=== PATIENT | male | born 1980 | race Caucasian/White ===

== ENCOUNTER 2017-03-12 14:20 | Emergency (ER) | payer BC, OTHER ==
[~2017-03-12] VITALS: Ht 172.7 cm; Wt 99.8 kg
[~2017-03-12 14:20] MED LIST: CEFU500T PO; FLUO60TA PO; HYDR-757 PO; LEVE500T99 PO; OXCA600T PO; PRD20T PO; TRAZ100T92 PO
--- OUTSIDE RECORDS SUMMARY | 2017-03-12 14:26 | XMS REPORT ---
Author Author BOBBI GUZMAN [facility] eClinicalWorks Address Unknown Phone Unavailable Care Team Providers Care Front Maker Lockstitch Name Role Phone BOBBI GUZMAN CP Unavailable Allergies, Adverse Reactions, Alerts Substance Reaction Event Type Asa Seizure Drug Allergy Problems Problem Type Condition Code Onset Dates Condition Status Assessment Depression F32.9 Active Assessment Seizure R56.9 Active Assessment Insomnia, unspecified type G47.00 Active Problem Seizure R56.9 Active Problem Depression F32.9 Active Problem Insomnia, unspecified type G47.00 Active Problem Unspecified 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 of intractable epilepsy G40.909 Active Problem Viral warts, unspecified 078.10 Active Problem History of attempted suicide Z91.5 Active Problem Depressive disorder, not elsewhere classified F32.9 Active Medications Medication Code System Code Instructions Start Date End Date Status Dosage Oxcarbazepine [facility] [address]-75 600 MG Orally 2 times a day 1 tablet Ambien [facility] [address]-61 5 MG Orally Once a day October 23, 2015 1 tablet at bedtime Levetiracetam [facility] [address]-08 500 MG Orally 2 times a day 3 tab Fluoxetine NDC 0 20 mg Once a day Mar 18, 2013 take 1.5 Tablet by Oral route 1 time per day Procedures Procedure Coding System Code Date Office Visit, Est Pt., Level 3 CPT-4 28328 Dec 02, 2015 Vital Signs Date/Time: Dec 02, 2015 Cardiac Monitoring Heart Rate 79 bpm Weight 183.4 lbs Height 67.5 in BMI 28.30 Index Blood Pressure Diastolic 60 mmHg Blood Pressure Systolic 100 mmHg Results No Known Results Summary Purpose eClinicalWorks Submission
--- OUTSIDE RECORDS SUMMARY | 2017-03-12 14:26 | XMS REPORT | Clinical Summary ---
Author Author [facility] Organization [facility] Address Unknown Phone Unavailable Care Team Providers Care Junior Legal Secretary Name Role Phone PCP Unavailable Source Comments Some departments are not documenting in the electronic medical record. If you do not see the information that you expected, contact Release of Information in the Health Information Management department at [phone] for further assistance in locating additional records.[facility] Allergies Active Allergy Reactions Severity Noted Date Comments Aspirin SEIZURES 07/01/2013 Current Medications Prescription Sig. Disp. Refills Start End Date Status Date cimetidine(+) (TAGAMET Take 200 mg by mouth Active HB) 200 mg tablet daily as needed. ibuprofen (MOTRIN) 200 mg Take 600 mg by mouth Active tablet daily as needed. nicotine (NICODERM CQ Apply 1 Patch to top of 28 Patch 07/06/19 Active STEP 1) 21 mg/day patch skin as directed daily. 14 clorazepate (TRANXENE) Take 1 Tab by mouth twice 13 Tab 0 07/06/19 Active 3.75 mg tablet daily. 14 levETIRAcetam (KEPPRA) Take 1 Tab by mouth as 180 Tab 5 07/06/19 Active 500 mg tablet directed. 1 po bid x1 14 week then2 po bid x1 week then3 po bid. Active Problems Problem Noted Date Tobacco use Obesity Mood swings (HCC) Nerve damage Seizures (HCC) Heartburn Immunizations Name Dates Previously Given Next Due Pneumococcal Vaccine 07/05/2013 ([place] Adult) Family History Medical History Relation Name Comments Hernia Brother Cancer-Prostate Father Dementia Father Heart Attack Father Stroke Father Heart Disease Maternal Grandfather Cancer-Lung Maternal Grandmother Hypertension Maternal Grandmother Hypertension Mother Cancer Paternal Grandmother Alzheimer's Relation Name Status Comments Brother Father Maternal Grandfather Maternal Grandmother Mother Paternal Grandmother Social History Tobacco Use Types Packs/Day Years Used Date Current Every Day Smoker Cigarettes 0.5 Alcohol Use Drinks/Week oz/Week Comments No 1 beer socially. Sex Assigned at Date Recorded Not on file Last Filed Vital Signs Vital Sign Reading Time Taken Blood Pressure 132/75 07/05/2013 12:00 PM CDT Pulse 84 07/05/2013 12:00 PM CDT Temperature 36.9 C (98.4 F) 07/05/2013 12:00 PM CDT Respiratory Rate - - Oxygen Saturation 99% 07/05/2013 12:00 PM CDT Inhaled Oxygen - - Concentration Weight 95.9 kg (211 lb 8 oz) 07/02/2013 2:19 PM CDT Height 175.3 cm (5' 9") 07/02/2013 2:19 PM CDT Body Mass Index 31.23 07/02/2013 2:19 PM CDT Plan of Treatment Health Maintenance Due Date Last Done Comments PHYSICAL (COMPREHENSIVE) 1985 EXAM PERTUSSIS VACCINE 1989 TETANUS VACCINE 1995 INFLUENZA VACCINE 10/25/2016 Results Not on filefrom Last 3 Months
--- OUTSIDE RECORDS SUMMARY | 2017-03-12 14:26 | XMS REPORT ---
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 Medications Medication Code System Code Instructions Start Date End Date Status Dosage Phenytoin Sodium Extended [facility] [address]-00 100 MG am and pm Active take 3 capsule Celexa [facility] [address]-01 20 MG Orally Once a day Active 1 tablet Keppra [facility] [address]-00 500 MG Orally every 12 hrs Active 3 tablets Divalproex Sodium [facility] [address]-85 500 MG Orally twice a day Active 3 tabs Acyclovir [facility] [address]-32 800 MG Orally Five times a day Mar 13, 2014 Active 1 tablet Oxcarbazepine [facility] [address]-74 300 MG Orally twice day Active not defined Clorazepate Dipotassium [facility] [address]-04 7.5 MG Orally Twice a day Active 1 tablet at bedtime as needed Procedures Procedure Coding System Code Date Office Visit, Est Pt., Level 3 CPT-4 77981 Mar 13, 2014 Vital Signs Date/Time: Mar 13, 2014 BMI 30.10 Index Weight 198 lbs Height 68.0 in Oximetry 98 % Cardiac Monitoring Heart Rate 64 /min Blood Pressure Diastolic 70 mm Hg Blood Pressure Systolic 118 mm Hg Respiratory Rate 20 /min Results No Known Results Summary Purpose eClinicalWorks Submission
--- OUTSIDE RECORDS SUMMARY | 2017-03-12 14:26 | XMS REPORT ---
Author [facility] Address [address] [place] [address] Care Team Providers Care Conveyor Loader Name Role Phone BOBBI GUMZAN Unavailable PROBLEMS Type Condition ICD9-CM Code CYZ81-LP Code Onset Dates Condition Status SNOMED Code Problem Unspecified 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 of intractable epilepsy G40.909 Active 08688286 Problem Depressive disorder, not elsewhere classified F32.9 Active 21699051 Problem Drug-induced erectile dysfunction N52.2 Active 598336386 Problem Insomnia, unspecified type G47.00 Active 193581331 Problem History of attempted suicide Z91.5 Active 364000020 Problem Viral warts, unspecified 078.10 Active 71557366 Problem Seizure R56.9 Active 11710852 Problem Depression F32.9 Active 42705162 ALLERGIES Substance Reaction Event Type Date Status Trazodone HCl Seizures Drug Allergy May, Active Asa Seizure Drug Allergy May, Active SOCIAL HISTORY Never Assessed PLAN OF CARE Activity Details Follow Up 4 Weeks Reason:f/u insomnia VITAL SIGNS Height 67.5 in 2016-06-03 Weight 200.0 lbs 2016-06-03 Temperature 97.8 degrees Fahrenheit 2016-06-03 Heart Rate 74 bpm 2016-06-03 Respiratory Rate 18 2016-06-03 BMI 30.86 kg/m2 2016-06-03 Blood pressure systolic 102 mmHg 2016-06-03 Blood pressure diastolic 68 mmHg 2016-06-03 MEDICATIONS Medication Instructions Dosage Frequency Start Date End Date Duration Status Levetiracetam 500 MG Orally 2 times a day 3 tab 12h Active Ambien 5 mg Orally Once a day 1 tablet at bedtime 24h May, 28 days Active Fluoxetine HCl 20 mg Orally Once a day 1 tablet 24h May, 30 day (s) Active Oxcarbazepine 600 MG Orally 2 times a day 1 tablet 12h Active RESULTS No Results PROCEDURES No Known procedures IMMUNIZATIONS No Known Immunizations MEDICAL (GENERAL) HISTORY Type Description Date Medical History seizures Medical History suicidal attempt x 7 Surgical History Rt eye surgery Hospitalization History seizures Hospitalization History Suicidal attempt 04/17/2015 Hospitalization History Generalized Tonic Clonic Seizure-[facility] 03/02/2015
--- OUTSIDE RECORDS SUMMARY | 2017-03-12 14:27 | XMS REPORT ---
Author [facility] Address [address] [place] [address] Care Team Providers Care Translator Name Role Phone BOBBI GUZMAN Unavailable PROBLEMS Type Condition ICD9-CM Code EOD48-WX Code Onset Dates Condition Status SNOMED Code Problem Viral warts, unspecified 078.10 Active 45301778 Problem Insomnia, unspecified type G47.00 Active 707657942 Problem Seizure R56.9 Active 73628947 Problem Depressive disorder, not elsewhere classified F32.9 Active 94331213 Problem Unspecified 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 of intractable epilepsy G40.909 Active 84460335 Problem Depression F32.9 Active 25106018 Problem History of attempted suicide Z91.5 Active 424843978 ALLERGIES Unknown Allergies SOCIAL HISTORY No smoking Hx information available PLAN OF CARE VITAL SIGNS MEDICATIONS Unknown Medications RESULTS No Results PROCEDURES No Known procedures IMMUNIZATIONS No Known Immunizations
--- OUTSIDE RECORDS SUMMARY | 2017-03-12 14:27 | XMS REPORT ---
Author Author BOBBI GUZMAN [facility] eClinicalWorks Address Unknown Phone Unavailable Care Team Providers Care Panel Machine Setter Name Role Phone BOBBI GUZMAN CP Unavailable Allergies No Known Allergies Problems Problem Type Condition Code Onset Dates Condition Status Problem Seizure R56.9 Active Problem Depression F32.9 Active Problem Insomnia, unspecified type G47.00 Active Problem Unspecified 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 of intractable epilepsy G40.909 Active Problem Viral warts, unspecified 078.10 Active Problem History of attempted suicide Z91.5 Active Problem Depressive disorder, not elsewhere classified F32.9 Active Medications Medication Code System Code Instructions Start Date End Date Status [facility]osage [facility] [address]-49 5 mg Orally Once a day October 23, 2015 1 tablet at bedtime Results No Known Results Summary Purpose eClinicalWorks Submission
--- OUTSIDE RECORDS SUMMARY | 2017-03-12 14:27 | XMS REPORT ---
Author Author BOBBI GUZMAN [facility] eClinicalWorks Address Unknown Phone Unavailable Care Team Providers Care Marketing Recruiter Name Role Phone BOBBI GUZMAN CP Unavailable Allergies No Known Allergies Problems Problem Type Condition Code Onset Dates Condition Status Problem Depression F32.9 Active Problem History of attempted suicide Z91.5 Active Problem Seizure R56.9 Active Problem Unspecified 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 of intractable epilepsy 345.90 Active Problem Depressive disorder, not elsewhere classified 311 Active Problem Viral warts, unspecified 078.10 Active Medications Medication Code System Code Instructions Start Date End Date Status Dosage Oxcarbazepine [facility] [address]-46 600 MG Orally 2 times a day [address] [facility] [address]-58 500 MG Orally 2 times a day 3 tab Results No Known Results Summary Purpose eClinicalWorks Submission
--- OUTSIDE RECORDS SUMMARY | 2017-03-12 14:27 | XMS REPORT ---
Author Author KYRA GOLD Organization [facility] Address [address] [place] [address] Care Team Providers Care Floor Assembler Name Role Phone KYRA GOLD Unavailable PROBLEMS Type Condition ICD9-CM Code GXA87-VL Code Onset Dates Condition Status SNOMED Code Problem Viral warts, unspecified 078.10 Active 24715290 Problem Insomnia, unspecified type G47.00 Active 738317127 Problem Seizure R56.9 Active 06131897 Problem Depressive disorder, not elsewhere classified F32.9 Active 51352274 Problem Unspecified 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 of intractable epilepsy G40.909 Active 57969849 Problem Depression F32.9 Active 40789150 Problem History of attempted suicide Z91.5 Active 841436286 ALLERGIES Unknown Allergies SOCIAL HISTORY No smoking Hx information available PLAN OF CARE VITAL SIGNS MEDICATIONS Medication Instructions Dosage Frequency Start Date End Date Duration Status Fluoxetine 20 mg take 1.5 Tablet by Oral route 1 time per day 24h Feb Active Oxcarbazepine 600 MG Orally 2 times a day 1 tablet 12h Active Levetiracetam 500 MG Orally 2 times a day 3 tab 12h Active RESULTS No Results PROCEDURES No Known procedures IMMUNIZATIONS No Known Immunizations
--- OUTSIDE RECORDS SUMMARY | 2017-03-12 14:27 | XMS REPORT ---
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 [address]-46 300-30 MG Orally Three times a day Mar 17, 2014 Mar 27, 2014 Active 1 tablet as needed Results No Known Results Summary Purpose eClinicalWorks Submission
--- OUTSIDE RECORDS SUMMARY | 2017-03-12 14:27 | XMS REPORT ---
Author Author BOBBI GUZMAN [facility] eClinicalWorks Address Unknown Phone Unavailable Care Team Providers Care High School French Teacher Name Role Phone BOBBI GUZMAN CP Unavailable [...] Start Date End Date Status Dosage Oxcarbazepine [facility] [address]-12 600 MG Orally 2 times a day 1 tablet Results No Known Results Summary Purpose eClinicalWorks Submission
--- OUTSIDE RECORDS SUMMARY | 2017-03-12 14:27 | XMS REPORT | CCD ---
Author Author SARAH RICCI Organization Unknown Address [address] [facility] [address] [place], [place] [address] Care Team Providers Care Neonatal Intensive Care Unit Nurse Name Role Phone ROSA BURNETTE MD Attphys ROSA BURNETTE MD Prisurg Vital Signs Unknown or Not Available. Allergies Allergy Code Allergy Type Reaction Status ASPIRIN 1191 Drug allergy Active Procedures Procedure Code Procedure Type Date ^CBC W/AUTO DIFF 8889513 SNOMED CT 05/14/2015 ^UA AUTO DIPSTICK ONLY 099603731 SNOMED CT 05/14/[address] 05/14/[address] 05/14/[address] 05/14/2015 RAPID DRUG SCREEN 720789542 SNOMED CT 05/14/2015 UA ROUTINE C&S IF IND 327262551 SNOMED CT 05/14/2015 COMPREHENSIVE METABOLIC PANEL 384811776 SNOMED CT 2015 CBC W/ AUTO DIFF (RFLX MAN DIFF IF IND) 3955977 SNOMED CT 05/14/2015 History of Immunizations Unknown or Not Available. Problems Problem Code Start Date Resolved Date Status Seizures 92330374 Active Results COMPREHENSIVE METABOLIC PANEL - Collect Date/Time: 05/14/2015 01:00 Test Name Code Test Result Test Units Test Ref Range GLUCOSE 2345-7 111 MG/DL L=70 H=100 SODIUM 2951-2 145 MEQ/L L=135 H=148 POTASSIUM 2823-3 3.4 MEQ/L L=3.5 H=5.3 CHLORIDE 2075-0 106 MEQ/L L=96 H=110 CO2 2028-9 26 MEQ/L L=22 H=29 BUN 3094-0 13 MG/DL L=8 H=22 CREATININE 2160-0 1.1 MG/DL L=0.6 H=1.6 SGOT/AST 1920-8 26 IU/L L=10 H=40 SGPT/ALT 1742-6 21 IU/L L=8 H=54 ALK PHOS 6768-6 66 IU/L L=35 H=115 TOTAL PROTEIN 2885-2 6.2 G/DL L=5.5 H=8.5 ALBUMIN 1751-7 4.0 G/DL L=3.1 H=5.4 TOTAL BILI 1975-2 0.2 MG/DL L=0.0 H=1.5 CALCIUM 32162-1 8.9 MG/DL L=8.2 H=10.6 AGE 35 yrs GFR NonAA 75 GFR AA 91 eGFR >60 N/A eGFR AA* >60 N/A ACETAMINOPHEN - Collect Date/Time: 05/14/2015 01:00 Test Name Code Test Result Test Units Test Ref Range ACETAMINOPHEN 3298-7 <0.60 UG/ML ALCOHOL - Collect Date/Time: 05/14/2015 01:00 Test Name Code Test Result Test Units Test Ref Range ETHANOL 5640-8 <10 MG/DL RAPID DRUG SCREEN - Collect Date/Time: 05/14/2015 01:00 Test Name Code Test Result Test Units Test Ref Range Cannabinoids (THC) NON-NEGATIVE N/A NEG: < 50 ng/ml Phencyclidine (PCP) NEGATIVE N/A NEG: < 25 ng/ ml Cocaine NEGATIVE N/A NEG: < 300 ng/ml Methamphetamine NEGATIVE N/A NEG: < 1000 ng/ml Opiates NEGATIVE N/A NEG: < 300 ng/ml Amphetamine NEGATIVE N/A NEG: < 1000 ng/ml Benzodiazepines NON-NEGATIVE N/A NEG: < 300 ng/ ml Tricyclic Antidepres NEGATIVE N/A NEG: < 300 ng/ ml Methadone NEGATIVE N/A NEG: < 300 ng/ml Barbiturates NEGATIVE N/A NEG: < 200 ng/ml Oxycodone NEGATIVE N/A NEG: < 100 ng/ml Propoxyphene (PPX) NEGATIVE N/A NEG: < 300 ng/ ml SALICYLATE - Collect Date/Time: 05/14/2015 01:00 Test Name Code Test Result Test Units Test Ref Range SALICYLATE 4023-8 <5.0 MG/DL L=0.0 H=45.0 CBC W/ AUTO DIFF (RFLX MAN DIFF IF IND) - Collect Date/Time: 05/14/2015 01:00 Test Name Code Test Result Test Units Test Ref Range WBC 43329-5 10.4 TH/CMM L=4.5 H=10.8 RBC 789-8 4.31 ML/CMM L=4.70 H=6.10 HGB 718-7 14.1 G/DL L=14.0 H=18.0 HCT 4544-3 41.5 % L=42.0 H=52.0 MCV 96 FL L=81 H=99 MCH 32.7 PG L=27.0 H=33.0 MCHC 34.0 G/DL L=31.0 H=36.0 RDW SD 43 FL L=36 H=50 RDW CV 12.3 % L=0.0 H=14.8 MPV 10.0 FL L=9.3 H=12.5 PLT 777-3 336 TH/CMM L=130 H=440 NRBC# 0.00 TH/CMM L=0.00 H=0.00 NRBC% 0.0 /100WBC L=0.0 H=2.0 %NEUT 61.5 % %LYMP 29.5 % %MONO 7.3 % %EOS 1.3 % %BASO 0.4 % #NEUT 6.39 TH/CMM L=2.10 H=8.20 #LYMP 3.07 TH/CMM L=0.90 H=5.20 #MONO 0.76 TH/CMM L=0.16 H=1.00 #EOS 0.13 TH/CMM L=0.00 H=0.80 #BASO 0.04 TH/CMM L=0.00 H=0.20 MANUAL DIFF NOT IND N/A UA ROUTINE C&S IF IND - Collect Date/Time: 05/14/2015 01:00 Test Name Code Test Result Test Units Test Ref Range COLOR YELLOW N/A NL: YELLOW APPEARANCE CLEAR N/A NL: CLEAR SPEC GRAV 1.010 N/A NL: 1.002 - 1.022 pH 7.0 N/A NL: 5 - 9 PROTEIN NEGATIVE N/A NL: NEGATIVE mg/dl GLUCOSE NEGATIVE N/A NL: NEGATIVE mg/dl KETONE TRACE N/A NL: NEGATIVE mg/dl BILIRUBIN NEGATIVE N/A NL: NEGATIVE BLOOD NEGATIVE N/A NL: NEGATIVE NITRITE NEGATIVE N/A NL: NEGATIVE LEUK SCREEN NEGATIVE N/A NL: NEGATIVE MICRO INDICATED? NOT INDICATED N/A Active Medications Medication Code Dose Units Frequency Route Modification Start Date/Time Clorazepate Dipotassium 7.5MG Oral Tablet 201225 7.5 MILLIGRAMS TWO TIMES A DAY ORAL 04/21/2015 15:42 Prescription Detail 7.5 MILLIGRAMS ORAL TWO TIMES A DAY levETIRAcetam 500MG Oral Tablet 023273 9683 MILLIGRAMS EVERY 12 HOURS ORAL 04/21/2015 15:41 Prescription Detail 1500 MILLIGRAMS ORAL EVERY 12 HOURS OXcarbazepine 600MG Oral Tablet 176274 600 MILLIGRAMS TWO TIMES A DAY ORAL 04/21/2015 15:40 Prescription Detail 600 MILLIGRAMS ORAL TWO TIMES A DAY Medications Administered During Visit Unknown or Not Available. Encounters Encounter Diagnosis Diagnosis Code Start Date Intentional self poisoning 831919008 05/14/2015 Social History Smoking Status Code Start Date End Date Unknown if ever smoked 960287004 Patient Decision Aids Unknown or Not Available. Discharge Instructions You were admitted to [facility] on 05/14/2015 00:39 with a principal diagnosis of Poisoning by mixed antiepileptics, intentional self-harm, initial encounter You had the following tests done: ACETAMINOPHEN ALCOHOL CBC W/ AUTO DIFF (RFLX MAN DIFF IF IND) COMPREHENSIVE METABOLIC PANEL RAPID DRUG SCREEN SALICYLATE UA ROUTINE C&S IF IND You were discharged from [facility] on 05/14/2015 03:00 Should you have any questions prior to discharge, please contact a member of your healthcare team. If you have left the hospital and have any questions, please contact your primary care physician. Chief Complaint and Reason For Visit Chief Complaint Date of Onset OVERDOSE Function Status Unknown or Not Available. Plan of Care Unknown or Not Available. Referral/Transition of Care Unknown or Not Available.
--- OUTSIDE RECORDS SUMMARY | 2017-03-12 14:27 | XMS REPORT | CCD ---
Author Author KENDALL BLACKWELL Unknown Address [address] [facility] [address] [place], [place] [address] Care Team Providers Care Commercial Sales Specialist Name Role Phone HENDRIX, PONCHO DO Attphys HENDRIX, PONCHO DO Prisurg Vital Signs Unknown or Not Available. Allergies Allergy Code Allergy Type Reaction Status ASPIRIN 1191 Drug allergy Active Procedures Procedure Code Procedure Type Date CT HEAD W/O CONTRAST 779806765 SNOMED CT 08/02/2015 COMPREHENSIVE METABOLIC PANEL 858886226 SNOMED CT 2015 CBC W/ AUTO DIFF (RFLX MAN DIFF IF IND) 5535805 SNOMED CT 08/02/2015 ^CBC W/AUTO DIFF 4514579 SNOMED CT 08/02/2015 History of Immunizations Unknown or Not Available. Problems Problem Code Start Date Resolved Date Status Seizures 51023589 Active Results COMPREHENSIVE METABOLIC PANEL - Collect Date/Time: 08/02/2015 10:25 Test Name Code Test Result Test Units Test Ref Range GLUCOSE 2345-7 108 MG/DL L=70 H=100 SODIUM 2951-2 141 MEQ/L L=135 H=148 POTASSIUM 2823-3 4.1 MEQ/L L=3.5 H=5.3 CHLORIDE 2075-0 103 MEQ/L L=96 H=110 CO2 2028-9 28 MEQ/L L=22 H=29 BUN 3094-0 19 MG/DL L=8 H=22 CREATININE 2160-0 0.9 MG/DL L=0.6 H=1.6 SGOT/AST 1920-8 23 IU/L L=10 H=40 SGPT/ALT 1742-6 32 IU/L L=8 H=54 ALK PHOS 6768-6 66 IU/L L=35 H=115 TOTAL PROTEIN 2885-2 7.0 G/DL L=5.5 H=8.5 ALBUMIN 1751-7 4.5 G/DL L=3.1 H=5.4 TOTAL BILI 1975-2 0.3 MG/DL L=0.0 H=1.5 CALCIUM 66800-3 9.6 MG/DL L=8.2 H=10.6 AGE 35 yrs GFR NonAA 95 GFR AA 115 eGFR >60 N/A eGFR AA* >60 N/A CBC W/ AUTO DIFF (RFLX MAN DIFF IF IND) - Collect Date/Time: 08/02/2015 10:25 Test Name Code Test Result Test Units Test Ref Range WBC 68363-2 6.1 TH/CMM L=4.5 H=10.8 RBC 789-8 4.58 ML/CMM L=4.70 H=6.10 HGB 718-7 14.7 G/DL L=14.0 H=18.0 HCT 4544-3 43.6 % L=42.0 H=52.0 MCV 95 FL L=81 H=99 MCH 32.1 PG L=27.0 H=33.0 MCHC 33.7 G/DL L=31.0 H=36.0 RDW SD 41 FL L=36 H=50 RDW CV 11.9 % L=0.0 H=14.8 MPV 9.3 FL L=9.3 H=12.5 PLT 777-3 291 TH/CMM L=130 H=440 NRBC# 0.00 TH/CMM L=0.00 H=0.00 NRBC% 0.0 /100WBC L=0.0 H=2.0 %NEUT 64.5 % %LYMP 27.0 % %MONO 6.2 % %EOS 1.0 % %BASO 0.5 % #NEUT 3.95 TH/CMM L=2.10 H=8.20 #LYMP 1.65 TH/CMM L=0.90 H=5.20 #MONO 0.38 TH/CMM L=0.16 H=1.00 #EOS 0.06 TH/CMM L=0.00 H=0.80 #BASO 0.03 TH/CMM L=0.00 H=0.20 MANUAL DIFF NOT IND N/A Active Medications Medication Code Dose Units Frequency Route Modification Start Date/Time Clorazepate Dipotassium 7.5MG Oral Tablet 326775 7.5 MILLIGRAMS TWO TIMES A DAY ORAL 04/21/2015 15:42 Prescription Detail 7.5 MILLIGRAMS ORAL TWO TIMES A DAY levETIRAcetam 500MG Oral Tablet 906433 1826 MILLIGRAMS EVERY 12 HOURS ORAL 04/21/2015 15:41 Prescription Detail 1500 MILLIGRAMS ORAL EVERY 12 HOURS OXcarbazepine 600MG Oral Tablet 293000 600 MILLIGRAMS TWO TIMES A DAY ORAL 04/21/2015 15:40 Prescription Detail 600 MILLIGRAMS ORAL TWO TIMES A DAY Medications Administered During Visit Unknown or Not Available. Encounters Encounter Diagnosis Diagnosis Code Start Date Epilepsy, not refractory 083056858 08/02/2015 Social History Smoking Status Code Start Date End Date Never smoker 107898784 Patient Decision Aids Unknown or Not Available. Discharge Instructions You were admitted to [facility] on 08/02/2015 10:08 with a principal diagnosis of Epilepsy, unspecified, not intractable, without status epilepticus You had the following tests done: CBC W/ AUTO DIFF (RFLX MAN DIFF IF IND) COMPREHENSIVE METABOLIC PANEL You were discharged from [facility] on 08/02/2015 11:38 Should you have any questions prior to discharge, please contact a member of your healthcare team. If you have left the hospital and have any questions, please contact your primary care physician. Chief Complaint and Reason For Visit Chief Complaint Date of Onset SEIZURE Function Status Unknown or Not Available. Plan of Care Unknown or Not Available. Referral/Transition of Care Unknown or Not Available.
--- OUTSIDE RECORDS SUMMARY | 2017-03-12 14:27 | XMS REPORT ---
Author Author BOBBI GUZMAN [facility] eClinicalWorks Address Unknown Phone Unavailable Care Team Providers Care Cyberathlete Name Role Phone BOBBI GUZMAN CP Unavailable [...] Instructions Start Date End Date Status [facility] [address]-55 5 mg Orally Once a day October 23, 2015 1 tablet at bedtime Results No Known Results Summary Purpose eClinicalWorks Submission
--- OUTSIDE RECORDS SUMMARY | 2017-03-12 14:27 | XMS REPORT ---
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
--- OUTSIDE RECORDS SUMMARY | 2017-03-12 14:27 | XMS REPORT ---
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 Active Problem History of attempted suicide Z91.5 Active Problem Depressive disorder, not elsewhere classified 311 Active Problem Depression F32.9 Active Assessment Depression F32.9 Active Assessment History of attempted suicide Z91.5 Active Problem Viral warts, unspecified 078.10 Active Problem Unspecified 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 of intractable epilepsy 345.90 Active Medications Medication Code System Code Instructions Start Date End Date Status Dosage Oxcarbazepine [facility] [address]-31 600 MG Orally 2 times a day not defined Levetiracetam [facility] [address]-77 1500 Mg Orally every 12 hrs not defined Mirtazapine [facility] [address]-14 15 MG Orally Once a day July 17, 2015 1 tablet before bedtime in the evening Procedures Procedure Coding System Code Date Office Visit, Est Pt., Level 3 CPT-4 13200 July 17, 2015 Vital Signs Date/Time: July 17, 2015 Temperature 99.0 F Weight 178.7 lbs Height 67.5 in BMI 27.57 Index Blood Pressure Diastolic 78 mmHg Blood Pressure Systolic 118 mmHg Cardiac Monitoring Heart Rate 75 bpm Results No Known Results Summary Purpose eClinicalWorks Submission
--- OUTSIDE RECORDS SUMMARY | 2017-03-12 14:27 | XMS REPORT ---
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
--- OUTSIDE RECORDS SUMMARY | 2017-03-12 14:28 | XMS REPORT ---
Author Author BOBBI GUZMAN [facility] eClinicalWorks Address Unknown Phone Unavailable Care Team Providers Care Nutritional Services Cook Name Role Phone BOBBI GUZMAN CP Unavailable [...] Instructions Start Date End Date Status Dosage Levetiracetam [facility] [address]-36 500 MG Orally 2 times a day 3 tab Results No Known Results Summary Purpose eClinicalWorks Submission
--- OUTSIDE RECORDS SUMMARY | 2017-03-12 14:28 | XMS REPORT ---
Author Author BOBBI GUZMAN [facility] Address [address] [place] [address] Care Team Providers Care Route Salesperson Name Role Phone BOBBI GUZMAN Unavailable PROBLEMS Type Condition ICD9-CM Code [id number] Code Onset Dates Condition Status SNOMED Code Problem Viral warts, unspecified 078.10 Active 06850431 Problem Insomnia, unspecified type G47.00 Active 523979948 Problem Seizure R56.9 Active 65239575 Problem Depressive disorder, not elsewhere classified F32.9 Active 27673453 Problem Unspecified 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 of intractable epilepsy G40.909 Active 98935184 Problem Depression F32.9 Active 24463558 Problem History of attempted suicide Z91.5 Active 688249224 ALLERGIES Unknown Allergies SOCIAL HISTORY No smoking Hx information available PLAN OF CARE VITAL SIGNS MEDICATIONS Unknown Medications RESULTS No Results PROCEDURES No Known procedures IMMUNIZATIONS No Known Immunizations
--- OUTSIDE RECORDS SUMMARY | 2017-03-12 14:28 | XMS REPORT ---
Author Author [facility] Address [address] [place] [address] Care Team Providers Care Skin Care Consultant Name Role Phone BOBBI GUZMAN Unavailable PROBLEMS Type Condition ICD9-CM Code [id number] Code Onset Dates Condition Status SNOMED Code Problem Unspecified 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 of intractable epilepsy G40.909 Active 06140768 Problem Depressive disorder, not elsewhere classified F32.9 Active 47181622 Problem Drug-induced erectile dysfunction N52.2 Active 487728655 Problem Insomnia, unspecified type G47.00 Active 255015903 Problem History of attempted suicide Z91.5 Active 307733259 Problem Viral warts, unspecified 078.10 Active 65923370 Problem Seizure R56.9 Active 14312912 Problem Depression F32.9 Active 35214167 ALLERGIES No Information SOCIAL HISTORY Never Assessed PLAN OF CARE VITAL SIGNS MEDICATIONS No Known Medications RESULTS No Results PROCEDURES No Known procedures IMMUNIZATIONS No Known Immunizations MEDICAL (GENERAL) HISTORY Type Description Date Medical History seizures Medical History suicidal attempt x 7 Surgical History Rt eye surgery Hospitalization History seizures Hospitalization History Suicidal attempt 04/17/2015 Hospitalization History Generalized Tonic Clonic Seizure-[facility] 03/02/2015
--- OUTSIDE RECORDS SUMMARY | 2017-03-12 14:28 | XMS REPORT | CCD ---
Author Author SARAH RICCI Organization Unknown Address [address] [address] [place], [place] [id number] Care Team Providers Care Compensation Advisor Name Role Phone [facility] MD Attphys RENE QUINONEZ DO Prisurg Vital Signs Vital Sign Value Unit Date/Time Recent/Initial? Weight Measured 190 lbs 04/17/2015 11:30 Initial VS Height 70 in 04/17/2015 11:30 Initial VS BMI (Body Mass Index) 27.26 kg/m^2 04/17/2015 11:30 Initial VS BSA (Body Surface Area) 2.06 m^2 04/17/2015 11:30 Initial VS Body Temperature 96 degrees 04/17/2015 11:30 Initial VS BP Systolic 141 mmHg 04/17/2015 11:39 Initial VS BP Diastolic 84 mmHg 04/17/2015 11:39 Initial VS Respiratory Rate 15 bpm 04/17/2015 11:40 Initial VS Heart Rate 69 bpm 04/17/2015 11:40 Initial VS O2 % BldC Oximetry 100 % 04/17/2015 11:40 Initial VS Weight Measured 195.2 lbs 04/18/2015 04:21 Most Recent VS Height 68 in 04/18/2015 04:21 Most Recent VS BMI (Body Mass Index) 29.68 kg/m^2 04/18/2015 04:21 Most Recent VS BSA (Body Surface Area) 2.06 m^2 04/18/2015 04:21 Most Recent VS Body Temperature 98.3 degrees 04/18/2015 08:01 Most Recent VS BP Systolic 110 mmHg 04/18/2015 13:00 Most Recent VS BP Diastolic 63 mmHg 04/18/2015 13:00 Most Recent VS Respiratory Rate 16 bpm 04/18/2015 13:01 Most Recent VS Heart Rate 80 bpm 04/18/2015 13:01 Most Recent VS O2 % BldC Oximetry 98 % 04/18/2015 13:01 Most Recent VS Allergies Unknown or Not Available. Procedures Procedure Code Procedure Type Date Respiratory Ventilation, Less than 24 Consecutive Hours [id number] ICD-10 PCS 04/17/[address] 04/17/2015 TECH ASSIST HOURLY 614828977 SNOMED CT 04/17/2015 VENTILATOR MGNT INITIAL DAY 001681077 SNOMED CT 2015 VENTILATOR MGNT SUBSEQUENT DAY 027472551 SNOMED CT 2015 ABG DRAW 01251834 SNOMED CT 04/17/[address] AB[address]140 [address] 04/18/2015 BAN AERO ECLIPSE TREATMENT #[address] 04/18/2015 WEANING PARAMETERS 792458633 SNOMED [address] 04/18/[address] 04/17/2015 RAPID DRUG SCREEN 402007935 SNOMED CT 04/17/[address] 04/17/[address] 04/17/[address] 04/17/2015 CBC W/ AUTO DIFF (RFLX MAN DIFF IF IND) 8673547 SNOMED CT 04/17/2015 COMPREHENSIVE METABOLIC PANEL 662536822 SNOMED CT 2015 UA W/MICRO C&S IF IND 394024610 SNOMED CT 04/17/[address] 04/17/2015 ^CBC W/AUTO DIFF 6196430 SNOMED CT 04/17/2015 CULTURE SPUTUM 026324325 SNOMED CT 04/17/2015 GRAM STAIN 22442731 SNOMED [address] 04/17/[address] 04/18/[address] 04/18/[address] 04/18/2015 CBC W/ AUTO DIFF (RFLX MAN DIFF IF IND) 4391476 SNOMED CT 04/18/2015 COMPREHENSIVE METABOLIC PANEL 668921667 SNOMED CT [address] 04/17/2015 HGB A1C (SEND-OUT) 02214024 SNOMED CT 04/17/2015 BEDSIDE GLUCOSE 22251081 SNOMED CT 04/17/2015 BEDSIDE GLUCOSE 71307311 SNOMED CT 04/17/2015 BEDSIDE GLUCOSE 88407531 SNOMED CT 04/18/2015 ^CBC W/AUTO DIFF 8236686 SNOMED CT 04/18/2015 CX CHEST [address] 04/17/2015 CX CHEST [address] 04/18/2015 OXYGEN/HOUR 402074828 SNOMED CT 04/17/2015 RESPIRATORY EQUIPMENT SET UP 119234098 SNOMED CT 2015 BAN AERO ECLIPSE TREATMENT 90020464 SNOMED CT 04/17/2015 BAN AERO ECLIPSE TREATMENT 33677549 SNOMED CT 04/17/2015 BAN AERO ECLIPSE TREATMENT 77090476 SNOMED CT 04/18/2015 BAN AERO ECLIPSE TREATMENT 97535505 SNOMED CT 04/18/2015 BAN AERO ECLIPSE TREATMENT 99738505 SNOMED CT 04/18/2015 OXYGEN/HOUR 782353641 SNOMED CT 04/18/2015 OXYGEN/HOUR 162736716 SNOMED CT 04/18/2015 History of Immunizations Unknown or Not Available. Problems Problem Code Start Date Resolved Date Status Seizures 55095925 Active Overdose 87051595 04/21/2015 Resolved Results BEDSIDE GLUCOSE - Collect Date/Time: 04/18/2015 05:14 Test Name Code Test Result Test Units Test Ref Range GLUCOSE POCT 67 MG/DL L=70 H=100 BEDSIDE GLUCOSE - Collect Date/Time: 04/17/2015 20:26 Test Name Code Test Result Test Units Test Ref Range GLUCOSE POCT 75 MG/DL L=70 H=100 BEDSIDE GLUCOSE - Collect Date/Time: 04/17/2015 19:00 Test Name Code Test Result Test Units Test Ref Range GLUCOSE POCT 63 MG/DL L=70 H=100 COMPREHENSIVE METABOLIC PANEL - Collect Date/Time: 04/18/2015 05:10 Test Name Code Test Result Test Units Test Ref Range GLUCOSE 2345-7 86 MG/DL L=70 H=100 SODIUM 2951-2 139 MEQ/L L=135 H=148 POTASSIUM 2823-3 4.0 MEQ/L L=3.5 H=5.3 CHLORIDE 2075-0 109 MEQ/L L=96 H=110 CO2 2028-9 20 MEQ/L L=22 H=29 BUN 3094-0 16 MG/DL L=8 H=22 CREATININE 2160-0 0.8 MG/DL L=0.6 H=1.6 SGOT/AST 1920-8 17 IU/L L=10 H=40 SGPT/ALT 1742-6 17 IU/L L=8 H=54 ALK PHOS 6768-6 68 IU/L L=35 H=115 TOTAL PROTEIN 2885-2 5.9 G/DL L=5.5 H=8.5 ALBUMIN 1751-7 3.9 G/DL L=3.1 H=5.4 TOTAL BILI 1975-2 0.6 MG/DL L=0.0 H=1.5 CALCIUM 71369-5 8.6 MG/DL L=8.2 H=10.6 AGE 35 yrs GFR NonAA 109 GFR AA 132 eGFR >60 N/A eGFR AA* >60 N/A COMPREHENSIVE METABOLIC PANEL - Collect Date/Time: 04/17/2015 09:55 Test Name Code Test Result Test Units Test Ref Range GLUCOSE 2345-7 116 MG/DL L=70 H=100 SODIUM 2951-2 141 MEQ/L L=135 H=148 POTASSIUM 2823-3 3.8 MEQ/L L=3.5 H=5.3 CHLORIDE 2075-0 108 MEQ/L L=96 H=110 CO2 2028-9 23 MEQ/L L=22 H=29 BUN 3094-0 21 MG/DL L=8 H=22 CREATININE 2160-0 0.8 MG/DL L=0.6 H=1.6 SGOT/AST 1920-8 17 IU/L L=10 H=40 SGPT/ALT 1742-6 21 IU/L L=8 H=54 ALK PHOS 6768-6 75 IU/L L=35 H=115 TOTAL PROTEIN 2885-2 6.4 G/DL L=5.5 H=8.5 ALBUMIN 1751-7 4.2 G/DL L=3.1 H=5.4 TOTAL BILI 1975-2 0.2 MG/DL L=0.0 H=1.5 CALCIUM 96080-8 8.3 MG/DL L=8.2 H=10.6 AGE 35 yrs GFR NonAA 109 GFR AA 132 eGFR >60 N/A eGFR AA* >60 N/A CPK - Collect Date/Time: 04/17/2015 09:55 Test Name Code Test Result Test Units Test Ref Range CPK 2157-6 112 IU/L L=0 H=235 ACETAMINOPHEN - Collect Date/Time: 04/17/2015 09:55 Test Name Code Test Result Test Units Test Ref Range ACETAMINOPHEN 3298-7 <0.60 UG/ML ALCOHOL - Collect Date/Time: 04/17/2015 09:55 Test Name Code Test Result Test Units Test Ref Range ETHANOL 5640-8 <10 MG/DL RAPID DRUG SCREEN - Collect Date/Time: 04/17/2015 11:16 Test Name Code Test Result Test Units Test Ref Range Cannabinoids (THC) NEGATIVE N/A NEG: < 50 ng/ ml Phencyclidine (PCP) NEGATIVE N/A NEG: < 25 [...] 300 ng/ ml SALICYLATE - Collect Date/Time: 04/17/2015 09:55 Test Name Code Test Result Test Units Test Ref Range SALICYLATE 4023-8 <5.0 MG/DL L=0.0 H=45.0 CBC W/ AUTO DIFF (RFLX MAN DIFF IF IND) - Collect Date/Time: 04/18/2015 05:10 Test Name Code Test Result Test Units Test Ref Range WBC 02102-3 12.2 TH/CMM L=4.5 H=10.8 RBC 789-8 4.04 ML/CMM L=4.70 H=6.10 HGB 718-7 13.1 G/DL L=14.0 H=18.0 HCT 4544-3 39.1 % L=42.0 H=52.0 MCV 97 FL L=81 H=99 MCH 32.4 PG L=27.0 H=33.0 MCHC 33.5 G/DL L=31.0 H=36.0 RDW SD 44 FL L=36 H=50 RDW CV 12.5 % L=0.0 H=14.8 MPV 10.4 FL L=9.3 H=12.5 PLT 777-3 270 TH/CMM L=130 H=440 NRBC# 0.00 TH/CMM L=0.00 H=0.00 NRBC% 0.0 /100WBC L=0.0 H=2.0 %NEUT 72.1 % %LYMP 18.7 % %MONO 8.5 % %EOS 0.5 % %BASO 0.2 % #NEUT 8.82 TH/CMM L=2.10 H=8.20 #LYMP 2.29 TH/CMM L=0.90 H=5.20 #MONO 1.04 TH/CMM L=0.16 H=1.00 #EOS 0.06 TH/CMM L=0.00 H=0.80 #BASO 0.02 TH/CMM L=0.00 H=0.20 MANUAL DIFF NOT IND N/A CBC W/ AUTO DIFF (RFLX MAN DIFF IF IND) - Collect Date/Time: 04/17/2015 09:55 Test Name Code Test Result Test Units Test Ref Range WBC 02105-2 15.5 TH/CMM L=4.5 H=10.8 RBC 789-8 4.47 ML/CMM L=4.70 H=6.10 HGB 718-7 14.7 G/DL L=14.0 H=18.0 HCT 4544-3 42.9 % L=42.0 H=52.0 MCV 96 FL L=81 H=99 MCH 32.9 PG L=27.0 H=33.0 MCHC 34.3 G/DL L=31.0 H=36.0 RDW SD 43 FL L=36 H=50 RDW CV 12.3 % L=0.0 H=14.8 MPV 10.1 FL L=9.3 H=12.5 PLT 777-3 276 TH/CMM L=130 H=440 NRBC# 0.00 TH/CMM L=0.00 H=0.00 NRBC% 0.0 /100WBC L=0.0 H=2.0 %NEUT 83.7 % %LYMP 10.1 % %MONO 5.7 % %EOS 0.3 % %BASO 0.2 % #NEUT 12.95 TH/CMM L=2.10 H=8.20 #LYMP 1.57 TH/CMM L=0.90 H=5.20 #MONO 0.89 TH/CMM L=0.16 H=1.00 #EOS 0.05 TH/CMM L=0.00 H=0.80 #BASO 0.03 TH/CMM L=0.00 H=0.20 MANUAL DIFF NOT IND N/A UA W/MICRO C&S IF IND - Collect Date/Time: 04/17/2015 11:16 Test Name Code Test Result Test Units Test Ref Range COLOR YELLOW N/A NL: YELLOW APPEARANCE CLEAR N/A NL: CLEAR SPEC GRAV >=1.030 N/A NL: 1.002 - 1.022 pH 6.0 N/A NL: 5 - 9 PROTEIN NEGATIVE N/A NL: NEGATIVE mg/dl GLUCOSE NEGATIVE N/A NL: NEGATIVE mg/dl KETONE NEGATIVE N/A NL: NEGATIVE mg/dl BILIRUBIN NEGATIVE N/A NL: NEGATIVE BLOOD NEGATIVE N/A NL: NEGATIVE NITRITE NEGATIVE N/A NL: NEGATIVE LEUK SCREEN NEGATIVE N/A NL: NEGATIVE HGB A1C (SEND-OUT) - Collect Date/Time: 04/17/2015 09:55 Test Name Code Test Result Test Units Test Ref Range Hemoglobin A1c 4548-4 5.4 % 4.8-5.6 Estim. Avg Glu (eAG) 15173-3 108 mg/dL ABG - Collect Date/Time: 04/18/2015 05:10 Test Name Code Test Result Test Units Test Ref Range PH 7.45 L=7.35 H=7.45 PCO2 33 mmHG L=35 H=45 PO2 171 mmHG L=80 H=100 BE 0.0 mmol/L L=-2.5 H=2.5 HCO3 23 mmol/L L=22 H=28 TCO2 20 mmol/L L=18 H=31 O2SAT 99 % L=80 H=100 SITE RT RADIAL N/A FIO2 30% N/A ABG - Collect Date/Time: 04/17/2015 15:10 Test Name Code Test Result Test Units Test Ref Range PH 7.42 L=7.35 H=7.45 PCO2 37 mmHG L=35 H=45 PO2 130 mmHG L=80 H=100 HCO3 23 mmol/L L=22 H=28 TCO2 20 mmol/L L=18 H=31 O2SAT 99 % L=80 H=100 SITE R RADIAL N/A FIO2 30% N/A BE -0.6 N/A L=-2.5 H=2.5 ABG - Collect Date/Time: 04/17/2015 10:17 Test Name Code Test Result Test Units Test Ref Range PH 7.36 L=7.35 H=7.45 PCO2 41 mmHG L=35 H=45 PO2 109 mmHG L=80 H=100 HCO3 22 mmol/L L=22 H=28 TCO2 20 mmol/L L=18 H=31 O2SAT 98 % L=80 H=100 SITE R RADIAL N/A FIO2 2 L N/A BE -2.4 N/A L=-2.5 H=2.5 MAGNESIUM - Collect Date/Time: 04/18/2015 05:10 Test Name Code Test Result Test Units Test Ref Range MAGNESIUM 44946-5 1.9 MG/DL L=1.7 H=2.8 PHOSPHORUS - Collect Date/Time: 04/18/2015 05:10 Test Name Code Test Result Test Units Test Ref Range PHOSPHORUS 2777-1 3.2 MG/DL L=2.5 H=4.5 Active Medications Medication Code Dose Units Frequency Route Modification Start Date/Time Clorazepate Dipotassium 7.5MG Oral Tablet 523252 7.5 MILLIGRAMS TWO TIMES A DAY ORAL 04/21/2015 15:42 Prescription Detail 7.5 MILLIGRAMS ORAL TWO TIMES A DAY levETIRAcetam 500MG Oral Tablet 185482 9884 MILLIGRAMS EVERY 12 HOURS ORAL 04/21/2015 15:41 Prescription Detail 1500 MILLIGRAMS ORAL EVERY 12 HOURS OXcarbazepine 600MG Oral Tablet 498687 600 MILLIGRAMS TWO TIMES A DAY ORAL 04/21/2015 15:40 Prescription Detail 600 MILLIGRAMS ORAL TWO TIMES A DAY Medications Administered During Visit Medication Dose Units Frequency Route Date/ Time of Last Dose VERSED DRIP 1 MG/ML (PRE-DEFINED DRIP) CONT IV IV 04/17/2015 21:06 BUDESONIDE [PULMICORT] RESP 0.5MG/2ML 1 DOSE Q 12 HRS (RT ONLY) INHALE 04/18/2015 05:29 DUONEB [IPRATROPIUM/ALBUTEROL] 0.5/3 MG 1 UD QID (RT ONLY ) INHALE 04/18/2015 09:18 LEVOFLOXACIN [LEVAQUIN] IV BAMG Q24H IVPB 04/17/2015 15:34 PANTOPRAZOLE [PROTONIX] INJ VIAL: 40 MG 40 MG DAILY SIVP 04/18/2015 08:31 NS + KCL 20MEQ 1000ML IV [PREDEFINED] CONT IV IV 04/18/2015 08:31 MIDAZOLAM [VERSED] 10 MG/2 ML VIAL 5 MG X1 SIVP 04/17/2015 11:43 Encounters Encounter Diagnosis Diagnosis Code Start Date Poisoning by selective serotonin reuptake inhibitors, intentional self-harm, initial encounter [id number] 04/17/2015 Social History Smoking Status Code Start Date End Date Current every day smoker [id number] Patient Decision Aids Unknown or Not Available. Discharge Instructions You were admitted to [facility] on 04/17/2015 with a principal diagnosis of Poisoning by selective serotonin reuptake inhibitors, intentional self-harm, initial encounter. You had the following tests done: Hemoglobin A1c Estim. Avg Glu (eAG) You were discharged from [facility] on 04/18/2015. Should you have any questions prior to discharge, please contact a member of your healthcare team. If you have left the hospital and have any questions, please contact your primary care physician. HOME DIET: Regular. RELEVANT CONTACT INFORMATION: Other: Mental Health [phone] CONDITION AT DISMISSAL Stable. HOME MEDICATION INSTRUCTIONS: Take medications as listed above. HOME MEDS RETURNED TO PATIENT: Yes. ACTIVITY INSTRUCTIONS(list limitations): Activity as Tolerated. RETURN TO WORK/SCHOOL: N/A. WEIGHT MONITORING DISCUSSED(CHF PATIENTS) No. NEW PRESCRIPTS GIVEN TO PATIENT? No-none written by physician: Flavia. IMMUNIZATIONS GIVEN DURING HOSPITALIZATION: Influenza. PAIN MANAGEMENT: Non drug control methods. FOLLOW UP CARE - SEE YOUR PHYSICIAN: Make own appointment with Mental Health as directed by counselor. FOLLOW UP APPOINTMENT: Call your DrCharisma to set up appointment.. CALL YOUR PHYSICIAN IF YOU EXPERIENCE: Difficulty urinating, Difficulty swallowing, bleeding, fever. Shortness of Breath. PERSONAL ITEMS RETURNED: Yes. BRING DISCHARGE INST TO NEXT OFFICE VISIT Yes. DISCHARGE INSTRUCTIONS GIVEN TO: Patient and Mother VOICES UNDERSTANDING OF INSTRUCTIONS: Yes. INSTRUCTIONS GIVEN BY:(TYPE IN NAME AND DATE) Rey Rodriguez RN SMOKING CESSATION: Smoking and second hand smoke is harmful, to your health.. For more information you can call:, [phone], or [phone].. A pamphlet on smoking was given to you. CHIEF COMPLAINT: Pt overdosed on Citalopram and Trileptal 90 min prior to there arrival. reported to EMS he took 40 tabs of each and that he was trying to kill himself. GSC 9 on arrrival to ER. Chief Complaint and Reason For Visit Chief Complaint Date of Onset OVERDOSE Function Status Unknown or Not Available. Plan of Care Unknown or Not Available. Referral/Transition of Care Unknown or Not Available.
--- OUTSIDE RECORDS SUMMARY | 2017-03-12 14:28 | XMS REPORT ---
Author Author [facility]ZMAN [facility] Address [address] [place] [address] Care Team Providers Care Corporate Concierge Name Role Phone BOBBI GUZMAN Unavailable PROBLEMS Type Condition ICD9-CM Code [id number] Code Onset Dates Condition Status SNOMED Code Problem Unspecified 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 of intractable epilepsy G40.909 Active 46055250 Problem Depressive disorder, not elsewhere classified F32.9 Active 98675349 Problem Drug-induced erectile dysfunction N52.2 Active 034186826 Problem Insomnia, unspecified type G47.00 Active 700969864 Problem History of attempted suicide Z91.5 Active 831991953 Problem Viral warts, unspecified 078.10 Active 02107540 Problem Seizure R56.9 Active 76194637 Problem Depression F32.9 Active 83699900 ALLERGIES No Information SOCIAL HISTORY Never Assessed PLAN OF CARE VITAL SIGNS MEDICATIONS Medication Instructions Dosage Frequency Start Date End Date Duration Status Ambien 5 mg Orally Once a day at bedtime 1 tablet at bedtime May, 28 days Active RESULTS No Results PROCEDURES No Known procedures IMMUNIZATIONS No Known Immunizations MEDICAL (GENERAL) HISTORY Type Description Date Medical History seizures Medical History suicidal attempt x 7 Surgical History Rt eye surgery Hospitalization History seizures Hospitalization History Suicidal attempt 04/17/2015 Hospitalization History Generalized Tonic Clonic Seizure-[facility] 03/02/2015
--- OUTSIDE RECORDS SUMMARY | 2017-03-12 14:28 | XMS REPORT | Continuity of Care Document ---
Author Author [facility] Address Unknown Phone Unavailable Allergies There is no data. Medications There is no data. Problems Date Dx Coded Attending Type Code Diagnosis Diagnosed By 01/17/2013 TITUS JACQUES MD 078.10 WARTS 01/17/2013 TITUS JACQUES MD 345.90 SEIZURE DISORDER 01/17/2013 TITUS JACQUES MD 078.10 WARTS 01/17/2013 TITUS JACQUES MD 345.90 SEIZURE DISORDER 01/17/2013 TITUS JACQUES MD 078.10 WARTS 01/17/2013 TITUS JACQUES MD 345.90 SEIZURE DISORDER 01/17/2013 STARLA MARIEE DO 078.10 WARTS 01/17/2013 STARLA MARIEE DO 345.90 SEIZURE DISORDER 01/17/2013 TITUS JACQUES MD 078.10 WARTS 01/17/2013 TITUS JACQUES MD 345.90 SEIZURE DISORDER 01/17/2013 TITUS JACQUES MD 078.10 WARTS 01/17/2013 TITUS JACQUES MD 345.90 SEIZURE DISORDER 01/17/2013 TITUS JACQUES MD 078.10 WARTS 01/17/2013 TITUS JACQUES MD 345.90 SEIZURE DISORDER 01/17/2013 TITUS JACQUES MD 078.10 WARTS 01/17/2013 TITUS JACQUES MD 345.90 EPILEPSY AND RECURRENT SEIZURES 01/17/2013 TITUS JACQUES MD 078.10 WARTS 01/17/2013 TITUS JACQUES MD 345.90 EPILEPSY AND RECURRENT SEIZURES 01/30/2013 TITUS JACQUES MD 311 DEPRESSIVE DISORDER NOS 01/30/2013 TITUS JACQUES MD 311 DEPRESSIVE DISORDER NOS 01/30/2013 STARLA MARIEE DO 311 DEPRESSIVE DISORDER NOS 01/30/2013 TITUS JACQUES MD 311 DEPRESSIVE DISORDER NOS 01/30/2013 TITUS JACQUES MD 311 DEPRESSIVE DISORDER NOS 01/30/2013 TITUS JACQUES MD 311 DEPRESSIVE DISORDER NOS 01/30/2013 TITUS JACQUES MD 311 DEPRESSIVE DISORDER NOS 01/30/2013 TITUS JACQUES MD 311 DEPRESSIVE DISORDER NOS Procedures Code [place] [address] ROUTINE VENIPUNCTURE 01/30/2013 46707 CBC 01/30/2013 54972 VALPROIC ACID / DEPAKOTE 01/30/2013 18798 DILANTIN 01/30/2013 5847503 GFR CALC (RESULT ONLY) 01/30/2013 11104 CMP 01/30/2013 13727 WART DESTRUCT 1-14 (CRYO) 02/14/2013 55661 ROUTINE VENIPUNCTURE 03/06/2013 78147 VALPROIC ACID / DEPAKOTE 03/06/2013 53376 ROUTINE VENIPUNCTURE 03/26/2013 69584 VALPROIC ACID / DEPAKOTE 03/26/2013 50844 ROUTINE VENIPUNCTURE 04/09/2013 77487 URINE DRUG SCREEN (IN-HOUSE ) 04/09/2013 23708 CMP 04/09/2013 74406 VALPROIC ACID / DEPAKOTE 04/09/2013 49427 DILANTIN 04/09/2013 77821 CBC NO 5 PART DIFFERENTIAL 04/09/2013 Results There is no data. Encounters ACCT No. Visit Date/Time Discharge Status Pt. Type Provider Facility Loc./Unit Complaint [id number] 06/25/2013 11:11:00 06/25/2013 23:59:59 CLS Outpatient TITUS JACQUES MD [id number] 04/09/2013 11:17:00 04/09/2013 23:59:59 CLS Outpatient TITUS JACQUES MD [id number] 03/29/2013 09:17:00 03/29/2013 23:59:59 CLS Outpatient TITUS JACQUES MD [id number] 03/26/2013 12:08:00 03/26/2013 23:59:59 CLS Outpatient TITUS JACQUES MD [id number] 03/06/2013 09:00:00 03/06/2013 23:59:59 CLS Outpatient TITUS JACQUES MD [id number] 02/14/2013 10:33:00 02/14/2013 23:59:59 CLS Outpatient STARLA MARIEE DO [id number] 02/13/2013 09:05:00 02/13/2013 23:59:59 CLS Outpatient TITUS JACQUES MD [id number] 01/30/2013 11:10:00 01/30/2013 23:59:59 CLS Outpatient TITUS JACQUES MD [id number] 01/17/2013 12:18:00 01/17/2013 23:59:59 CLS Outpatient TITUS JACQUES MD [id number] 04/27/2015 01:39:19 04/27/2015 23:59:59 CLS Outpatient Emili Munguia [id number] 04/26/2015 21:40:09 04/26/2015 23:59:59 CLS Outpatient Jeremiah Alejandro [id number] 06/12/2013 17:44:10 Document Registration
--- OUTSIDE RECORDS SUMMARY | 2017-03-12 14:28 | XMS REPORT | CCD ---
Author Author SARAH RICCI Organization Unknown Address [address] [place], [place] [id number] Care Team Providers Care Endodontist Name Role Phone [facility] MD Attphys CATRACHO PICHARDO, CRISTHIAN Iraheta S., RADHA NASST B., FRANCES NASST G., MICHAEL Mazariegos NASST S., KALYN NASST O., JAD Oh NASST Vital Signs Vital Sign Value Unit Date/Time Recent/Initial? Weight Measured 190 lbs 04/21/2015 02:50 Initial VS Height 68 in 04/21/2015 02:50 Initial VS BMI (Body Mass Index) 28.89 kg/m^2 04/21/2015 02:50 Initial VS BSA (Body Surface Area) 2.03 m^2 04/21/2015 02:50 Initial VS BP Systolic 93 mmHg 04/21/2015 04:15 Initial VS BP Diastolic 51 mmHg 04/21/2015 04:15 Initial VS Respiratory Rate 18 bpm 04/21/2015 04:15 Initial VS Heart Rate 68 bpm 04/21/2015 04:15 Initial VS O2 % BldC Oximetry 100 % 04/21/2015 04:15 Initial VS Body Temperature 97.6 degrees 04/21/2015 04:15 Initial VS BP Systolic 97 mmHg 04/21/2015 15:15 Most Recent VS BP Diastolic 57 mmHg 04/21/2015 15:15 Most Recent VS Respiratory Rate 18 bpm 04/21/2015 15:15 Most Recent VS Heart Rate 60 bpm 04/21/2015 15:15 Most Recent VS O2 % BldC Oximetry 97 % 04/21/2015 15:15 Most Recent VS Body Temperature 98.9 degrees 04/21/2015 15:15 Most Recent VS Allergies Allergy Code Allergy Type Reaction Status ASPIRIN 1191 Drug allergy Active Procedures Procedure Code Procedure Type Date ^CBC W/AUTO DIFF 8620899 SNOMED CT 04/21/2015 ^UA AUTO DIPSTICK ONLY [id number] [facility] 04/21/2015 COMPREHENSIVE METABOLIC PANEL [id number] [facility] 2015 CBC W/ AUTO DIFF (RFLX MAN DIFF IF IND) 6593320 [facility] 04/21/2015 UA ROUTINE C&S IF IND [id number] [facility] 04/21/2015 CX CHEST 2 VIEWS [id number] [facility] 04/21/2015 History of Immunizations Unknown or Not Available. Problems Problem Code Start Date Resolved Date Status Seizures 16758494 Active Overdose 66437331 04/21/2015 Resolved Results COMPREHENSIVE METABOLIC PANEL - Collect Date/Time: 04/21/2015 13:35 Test Name Code Test Result Test Units Test Ref Range GLUCOSE 2345-7 109 MG/DL L=70 H=100 SODIUM 2951-2 140 MEQ/L L=135 H=148 POTASSIUM 2823-3 3.9 MEQ/L L=3.5 H=5.3 CHLORIDE 2075-0 104 MEQ/L L=96 H=110 CO2 2028-9 26 MEQ/L L=22 H=29 BUN 3094-0 24 MG/DL L=8 H=22 CREATININE 2160-0 1.2 MG/DL L=0.6 H=1.6 SGOT/AST 1920-8 27 IU/L L=10 H=40 SGPT/ALT 1742-6 27 IU/L L=8 H=54 ALK PHOS 6768-6 84 IU/L L=35 H=115 TOTAL PROTEIN 2885-2 7.2 G/DL L=5.5 H=8.5 ALBUMIN 1751-7 4.6 G/DL L=3.1 H=5.4 TOTAL BILI 1975-2 0.5 MG/DL L=0.0 H=1.5 CALCIUM 42635-5 9.8 MG/DL L=8.2 H=10.6 AGE 35 yrs GFR NonAA 68 GFR AA 82 eGFR >60 N/A eGFR AA* >60 N/A CBC W/ AUTO DIFF (RFLX MAN DIFF IF IND) - Collect Date/Time: 04/21/2015 13:35 Test Name Code Test Result Test Units Test Ref Range WBC 41226-3 10.1 TH/CMM L=4.5 H=10.8 RBC 789-8 4.75 ML/CMM L=4.70 H=6.10 HGB 718-7 15.6 G/DL L=14.0 H=18.0 HCT 4544-3 44.9 % L=42.0 H=52.0 MCV 95 FL L=81 H=99 MCH 32.8 PG L=27.0 H=33.0 MCHC 34.7 G/DL L=31.0 H=36.0 RDW SD 42 FL L=36 H=50 RDW CV 12.2 % L=0.0 H=14.8 MPV 10.2 FL L=9.3 H=12.5 PLT 777-3 316 TH/CMM L=130 H=440 NRBC# 0.00 TH/CMM L=0.00 H=0.00 NRBC% 0.0 /100WBC L=0.0 H=2.0 %NEUT 68.6 % %LYMP 23.2 % %MONO 6.3 % %EOS 1.5 % %BASO 0.4 % #NEUT 6.91 TH/CMM L=2.10 H=8.20 #LYMP 2.33 TH/CMM L=0.90 H=5.20 #MONO 0.63 TH/CMM L=0.16 H=1.00 #EOS 0.15 TH/CMM L=0.00 H=0.80 #BASO 0.04 TH/CMM L=0.00 H=0.20 MANUAL DIFF NOT IND N/A UA ROUTINE C&S IF IND - Collect Date/Time: 04/21/2015 15:45 Test Name Code Test Result Test Units Test Ref Range COLOR YELLOW N/A NL: YELLOW APPEARANCE HAZY N/A NL: CLEAR SPEC GRAV >=1.030 N/A NL: 1.002 - 1.022 pH 5.5 N/A NL: 5 - 9 PROTEIN NEGATIVE [...] Start Date/Time Clorazepate Dipotassium 7.5MG Oral Tablet 573749 7.5 MILLIGRAMS TWO TIMES A DAY ORAL 04/21/2015 15:42 Prescription Detail 7.5 MILLIGRAMS ORAL TWO TIMES A DAY levETIRAcetam 500MG Oral Tablet 725435 7496 MILLIGRAMS EVERY 12 HOURS ORAL 04/21/2015 15:41 Prescription Detail 1500 MILLIGRAMS ORAL EVERY 12 HOURS OXcarbazepine 600MG Oral Tablet 701774 600 MILLIGRAMS TWO TIMES A DAY ORAL 04/21/2015 15:40 Prescription Detail 600 MILLIGRAMS ORAL TWO TIMES A DAY Medications Administered During Visit Medication Dose Units Frequency Route Date/ Time of Last Dose LEVETIRACETAM [KEPPRA] TABLET: 500 MG 1500 MG Q12H PO 04/21/2015 09:45 CLORAZEPATE [TRANXENE-T] TABLET: 3.75 MG 7.5 MG BID PO 04/21/2015 09:45 OXCARBAZEPINE [TRILEPTAL] TABLET: 150 MG 600 MG BID PO 04/21/2015 09:45 Encounters Encounter Diagnosis Diagnosis Code Start Date Other epilepsy, not intractable, without status epilepticus L12540 04/21/2015 Social History Smoking Status Code Start Date End Date Current every day smoker [id number] Patient Decision Aids Patient Decision Aid Driving Restrictions Discharge Instructions You were admitted to [facility] on 04/21/2015 02:23 with a principal diagnosis of Other epilepsy, not intractable, without status epilepticus You had the following tests done: CBC W/ AUTO DIFF (RFLX MAN DIFF IF IND) COMPREHENSIVE METABOLIC PANEL UA ROUTINE C&S IF IND You were discharged from [facility] on 04/21/2015 18:35 Should you have any questions prior to discharge, please contact a member of your healthcare team. If you have left the hospital and have any questions, please contact your primary care physician. HOME DIET: Regular. CONDITION AT DISMISSAL Stable. ACTIVITY INSTRUCTIONS(list limitations): No driving until seizure clear 6months and cleared by Doctor. CONTACT PHYSICIAN IF YOU EXPERIENCE ANY: Shortness of breath, chest pain, fever/chills, seizure activity, suicidal ideation, homicidal ideation. PERSONAL ITEMS RETURNED: Yes. INSTRUCTIONS GIVEN AND DISCHARGE TO: Patient. VOICES UNDERSTANDING OF INSTRUCTIONS: Yes. INSTRUCTIONS GIVEN BY (TYPE IN NAME AND DATE) Frances Ramirez RN 04/21/15 WEIGHT MONITORING DISCUSSED (CHF PT) monitor weight daily SCRIPTS WRITTEN BY DOCTOR GIVEN TO PATIENT? Clorazepate 7.5mg, Levetiracetam 500mg, Oxcarbazepine 600mg FOLLOW UP CARE - SEE YOUR PHYSICIAN: Follow up with mental health and PCP this week as scheduled CHIEF COMPLAINT: Pt had seizure earlier in the day, EMS was called but pt refused to be transported to hospital. Pt had another seizure and pt was transported to ER by EMS. Chief Complaint and Reason For Visit Chief Complaint Date of Onset SEIZURE Function Status Unknown or Not Available. Plan of Care Unknown or Not Available. Referral/Transition of Care Unknown or Not Available.
--- OUTSIDE RECORDS SUMMARY | 2017-03-12 14:28 | XMS REPORT ---
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 Active 707097839 Problem Insomnia, unspecified type G47.00 Active 226808122 Problem History of attempted suicide Z91.5 Active 993116581 Problem Viral warts, unspecified 078.10 Active 58682044 Problem Seizure R56.9 Active 46621703 Problem Depression F32.9 Active 80542261 ALLERGIES Substance Reaction Event Type Date Status Trazodone HCl Seizures Drug Allergy May, Active Asa Seizure Drug Allergy May, Active SOCIAL HISTORY Never Assessed PLAN OF CARE Activity Details Follow Up prn Reason: VITAL SIGNS Height 67.5 in 2016-06-24 Weight 201.7 lbs 2016-06-24 Temperature 97.8 degrees Fahrenheit 2016-06-24 Heart Rate 72 bpm 2016-06-24 Respiratory Rate 18 2016-06-24 BMI 31.12 kg/m2 2016-06-24 Blood pressure systolic 118 mmHg 2016-06-24 Blood pressure diastolic 78 mmHg 2016-06-24 MEDICATIONS Medication Instructions Dosage Frequency Start Date End Date Duration Status Levetiracetam 500 MG Orally 2 times a day 3 tab 12h 30 days Active Ambien 5 mg Orally Once a day 1 tablet at bedtime 24h May, 28 days Active Oxcarbazepine 600 MG TAKE 1 TABLET BY MOUTH TWICE DAILY 30 Active Fluoxetine HCl 20 mg Orally Once a day 1 tablet 24h May, 30 days Active RESULTS No Results PROCEDURES No Known procedures IMMUNIZATIONS No Known Immunizations MEDICAL (GENERAL) HISTORY Type Description Date Medical History seizures Medical History suicidal attempt x 7 Surgical History Rt eye surgery Hospitalization History seizures Hospitalization History Suicidal attempt 04/17/2015 Hospitalization History Generalized Tonic Clonic Seizure-[facility] 03/02/2015
--- OUTSIDE RECORDS SUMMARY | 2017-03-12 14:28 | XMS REPORT ---
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 [address]-16 600 MG Orally twice day [address] [facility] [address]-95 7.5 MG Orally Twice a day 1 tablet at bedtime as needed Keppra [facility] [address]-50 500 MG Orally every 12 hrs [address] [facility] [address]-40 40 MG Orally Once a day 1 tablet Procedures Procedure Coding System Code Date Office Visit, Est Pt., Level 2 CPT-4 16912 July 07, 2014 Vital Signs Date/Time: July 07, 2014 BMI 31.95 Index Weight 204 lbs Height 67 in Oximetry 99 % Cardiac Monitoring Heart Rate 46 /min Blood Pressure Diastolic 76 mm Hg Blood Pressure Systolic 128 mm Hg Respiratory Rate 20 /min Results No Known Results Summary Purpose [employer] Submission
--- OUTSIDE RECORDS SUMMARY | 2017-03-12 14:28 | XMS REPORT ---
Author Author [facility] GU[facility]MAN [facility] Address [address] [place] [address] Care Team Providers Care Office Services Clerk Name Role Phone BOBBI GUZMAN Unavailable PROBLEMS Type Condition ICD9-CM Code [id number] Code Onset Dates Condition Status SNOMED Code Problem Viral warts, unspecified 078.10 Active 96429628 Problem Insomnia, unspecified type G47.00 Active 762999293 Problem Seizure R56.9 Active 10159138 Problem Depressive disorder, not elsewhere classified F32.9 Active 83132902 Problem Unspecified 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 of intractable epilepsy G40.909 Active 60041712 Problem Depression F32.9 Active 53759678 Problem History of attempted suicide Z91.5 Active 272669972 ALLERGIES Unknown Allergies SOCIAL HISTORY No smoking Hx information available PLAN OF CARE VITAL SIGNS MEDICATIONS Unknown Medications RESULTS No Results PROCEDURES No Known procedures IMMUNIZATIONS No Known Immunizations
--- OUTSIDE RECORDS SUMMARY | 2017-03-12 14:28 | XMS REPORT ---
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
[2017-03-12] MEDS ORDERED: fentaNYL INJECTION 100 MCG/2 ML AMP IM ONE (14:45)
[2017-03-12] MEDS ORDERED: fentaNYL INJECTION 100 MCG/2 ML AMP IVP ONE (14:45)
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
--- NOTE | 2017-03-12 15:13 | Diagnostic Imaging Report ---
INDICATION: Elbow pain after injury. COMPARISON: None available. TECHNIQUE: Three views of the left elbow. FINDINGS: There is no acute fracture or traumatic malalignment. No elbow joint effusion. Normal osseous mineralization. IMPRESSION: Normal left elbow radiographs. Dictated by: Dictated on workstation # [id number]
[2017-03-12 15:21] VITALS: BP 135/72
== END 2017-03-12 15:22 | disposition home or self-care (01) ==
LOC: EDUNIT# 14:20 → ER 14:21
DX: S50.02XA Contusion of left elbow, initial encounter (principal); G40.909 Epilepsy, unspecified, not intractable, without status epilepticus; F32.9 Major depressive disorder, single episode, unspecified; F41.9 Anxiety disorder, unspecified; G47.00 Insomnia, unspecified; Z87.891 Personal history of nicotine dependence; V48.9XXA Unspecified car occupant injured in noncollision transport accident in traffic accident, initial encounter
CPT/HCPCS: 73080; 99284

== ENCOUNTER 2017-07-04 16:39 | Emergency (ER) | payer BC ==
[~2017-07-04] VITALS: Ht 172.7 cm; Wt 99.9 kg
--- OUTSIDE RECORDS SUMMARY | 2017-07-04 16:44 | XMS REPORT | Clinical Summary ---
Author Author [facility] Organization [facility] Address Unknown Phone Unavailable Care Team Providers Care Knit Goods Press Hand Name Role Phone Walt Nation MD Unavailable Unavailable Sulma Finley APRN-BC Unavailable Cristobal Wheeler MD PCP Source Comments Some departments are not documenting in the electronic medical record. If you do not see the information that you expected, contact Release of Information in the Health Information Management department at [phone] for further assistance in locating additional records.[facility] Allergies Active Allergy Reactions Severity Noted Date [...] directed. 1 po bid x1 14 week then 2 po bid x1 week then 3 po bid. Active Problems Problem Noted Date [...] PHYSICAL (COMPREHENSIVE) 1985 EXAM PERTUSSIS VACCINE 1989 HIV SCREENING 1993 TETANUS VACCINE 1995 INFLUENZA VACCINE 12/25/2017 Results Not on filefrom Last 3 Months
[2017-07-04] MEDS ORDERED: LEVETIRACETAM 500 MG (KEPPRA) TAB PO ONE (16:45)
[2017-07-04] MEDS ORDERED: NS IV 1000 ML 1,000 ML IV SCH (16:45)
[2017-07-04] MEDS ORDERED: OXcarbazepine (TRILEPTAL) 300 MG TAB PO ONE (16:45)
--- OUTSIDE RECORDS SUMMARY | 2017-07-04 16:45 | XMS REPORT ---
Author Author BBOBI GUZMAN Organization [facility] Address [address] [place] [address] Care Team Providers Care Call Center Team Leader Name Role Phone BOBBI GUZMAN Unavailable PROBLEMS Type Condition ICD9-CM Code [id number] Code Onset Dates Condition Status SNOMED Code Problem Unspecified 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 of intractable epilepsy G40.909 Active 02632399 Problem Depressive disorder, not elsewhere classified F32.9 Active 83929771 Problem Drug-induced erectile dysfunction N52.2 Active 056601312 Problem Insomnia, unspecified type G47.00 Active 249437526 Problem History of attempted suicide Z91.5 Active 505848561 Problem Viral warts, unspecified 078.10 Active 20673407 Problem Seizure R56.9 Active 55354395 Problem Depression F32.9 Active 83516448 ALLERGIES No Information ENCOUNTERS Encounter Location Date Diagnosis [facility] [address] [id number] [place] [address] May [facility] [address] [id number] [place] [address] Mar [facility] [address] [id number] [place] [address] Feb Contusion of left elbow, subsequent encounter S50.02XD [facility] [address] [id number] [place] [address] Feb Contusion of left elbow, subsequent encounter S50.02XD [facility] [address] [id number] [place] [address] Feb Contusion of left elbow, subsequent encounter S50.02XD [facility] [address] [id number] [place] [address] Dec Insomnia, unspecified type G47.00 ; Seizure R56.9 and Acute nasopharyngitis J00 [facility] [place] [address] [id number] [place] [address] Nov Insomnia, unspecified type G47.00 [facility] [place] [address] [id number] [place] [address] Sep [facility] [place] [address] [id number] [place] [address] Sep Depression F32.9 and Insomnia, unspecified type G47.00 [facility] [place] [address] [id number] [place] [address] Aug [facility] [place] [address] [id number] [place] [address] Aug, Insomnia, unspecified type G47.00 [facility] [place] [address] [id number] [place] [address] July Insomnia, unspecified type G47.00 [facility] [place] [address] [id number] [place] [address] July [facility] [place] [address] [id number] [place] [address] Jun Acute [facility]aryngitis J00 [facility] [place] [address] [id number] [place] [address] May Drug-induced erectile dysfunction N52.2 ; Seizure R56.9 and Depressive disorder, not elsewhere classified F32.9 [facility] [place] [address] [id number] [place] [address] May [facility] [place] [address] [id number] [place] [address] May Insomnia, unspecified type G47.00 [facility] [place] [address] [id number] [place] [address] May Drug-induced erectile dysfunction N52.2 [facility] [address] [facility] [id number] [place] [address] Feb, [facility] [place] [address] [id number] [place] [address] Jan [facility] [place] [address] [id number] [place] [address] Dec [facility] [place] [address] [id number] [place] [address] Nov [facility] [place] [address] [id number] [place] [address] Nov [facility] [place] [address] [id number] [place] [address] Nov [facility] [place] [address] [id number] [place] [address] Nov Seizure R56.9 ; Insomnia, unspecified type G47.00 and Depression F32.9 [facility] [place] [address] [id number] [place] [address] Oct [facility] [place] [address] [id number] [place] [address] Oct [facility] [place] [address] [id number] [place] [address] Oct Depressive disorder, not elsewhere classified F32.9 ; Unspecified 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 of intractable epilepsy G40.909 and Insomnia, unspecified type G47.00 [facility] [place] [address] [id number] [place] [address] Sep Other insomnia G47.09 [facility] [place] [address] [place] [address] Sep, [facility] [place] [address] [id number] [place] [address] July Depression F32.9 and Seizure R56.9 [facility] [place] [address] [id number] [place] [address] Jun Depression F32.9 ; History of attempted suicide Z91.5 and Unspecified 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 of intractable epilepsy 345.90 [facility] [place] [address] [id number] [place] [address] May Depression F32.9 and History of attempted suicide Z91.5 [facility] [address] [facility] [id number], [place] [address] May, [facility] [address] [id number] [place] [address] Mar Seizure disorder G40.909 ; Depression F32.9 and Suicide attempt by drug ingestion T50.902A [facility] [address]00565[address], [place] [address] Jun, [facility] [address]00565100[place], [place] [address] Jun, [facility] [address], [place] [address] Oct, [facility] [address] [place] [address] Oct, [facility] [address]65100[place], [place] [address] Jun, [facility] [address]65100[place], [place] [address] Jun, [facility] [id number][place] [address] Jun, [facility] [address]65100[place], [place] [address] Jun, [facility] [address], [place] [address] Mar, [facility] [address] [id number], [place] [address] Mar, [facility] [id number], [place] [address] Mar, [facility] [address]65[address], [place] [address] Mar, [facility] [id number], [place] [id number] Mar, [facility] [address]65100[place], [place] [address] Mar, [facility] [address] [facility] [id number][place] [address] Feb, [facility] [address] [id number], [place] [address] Feb, [facility] [address] [facility] [id number], [place] [address] Feb, [facility] [address] [facility] [id number], [place] [address] Feb, [facility] [address] [facility] [id number] [place] [address], [place] [address] Feb, [facility] [address] [facility] [id number] [place] [address] Feb, [facility] [address] [id number], [place] [address] Feb, [facility] [address] [id number][place] [address] Feb, [facility] [address] [id number], [place] [address] Jan, [facility] [address] [facility] [id number], [place] [address] Jan, [facility] [address] [facility] [id number], [place] [address] Jan, [facility] [address] [facility] [id number], [place] [address] Jan, [facility] [id number], [place] [id number] Jan, [facility] [address] [facility] [id number], [place] [address] Jan, [facility] [address] [facility] [id number], [place] [address] Jan, [facility] [address] [facility] [id number] [place] [address] Jan, [facility] [address] [id number], [place] [address] Jan, [facility] [address] [facility] [id number], [place] [address] Jan, [facility] [address] [facility] [id number], [place] [address] Jan, [facility] [address] [facility] [id number][place] [address] Dec, [facility] [address] [facility] [id number], [place] [address] Dec, IMMUNIZATIONS No Known Immunizations SOCIAL HISTORY Never Assessed REASON FOR VISIT Meds consult PLAN OF CARE VITAL SIGNS MEDICATIONS Unknown Medications RESULTS No Results PROCEDURES No Known procedures INSTRUCTIONS MEDICATIONS ADMINISTERED No Known Medications MEDICAL (GENERAL) HISTORY Type Description Date Medical History seizures Medical History suicidal attempt x 7 Surgical History Rt eye surgery Hospitalization History seizures Hospitalization History Suicidal attempt 04/17/2015 Hospitalization History Generalized Tonic Clonic Seizure-[facility] 03/02/2015
--- OUTSIDE RECORDS SUMMARY | 2017-07-04 16:45 | XMS REPORT ---
Author Author TIT[facility] Address [address] [place] [address] Care Team Providers Care Blanket Winder Helper Name Role Phone [facility] Unavailable PROBLEMS Type Condition ICD9-CM Code MII86-RZ Code Onset Dates Condition Status SNOMED Code Problem Unspecified 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 of intractable epilepsy G40.909 Active 72485513 Problem Depressive disorder, not elsewhere classified F32.9 Active 76293651 Problem Drug-induced erectile dysfunction N52.2 Active 586496122 Problem Insomnia, unspecified type G47.00 Active 284336548 Problem History of attempted suicide Z91.5 Active 717152161 Problem Viral warts, unspecified 078.10 Active 60387440 Problem Seizure R56.9 Active 39553756 Problem Depression F32.9 Active 57948679 ALLERGIES No Information ENCOUNTERS Encounter Location Date Diagnosis [facility] [address] [id number] [place] [address] May [facility] [address] [id number] [place] [address] Mar [facility] [address] [id number] [place] [address] Feb Contusion of left elbow, subsequent encounter S50.02XD [facility] [address] [id number] [place] [address] Feb Contusion of left elbow, subsequent encounter S50.02XD [facility] [address] [id number] [place] [address] Feb Contusion of left elbow, subsequent encounter S50.02XD [facility] [address] [id number] [place] [address] Dec Insomnia, unspecified type G47.00 ; Seizure R56.9 and Acute nasopharyngitis J00 [facility] [address] [id number] [place] [address] Nov Insomnia, unspecified type G47.00 [facility] [place] [address] [id number] [place] [address] Sep [facility] [place] [address] [id number] [place] [address] Sep Depression F32.9 and Insomnia, unspecified type G47.00 [facility] [place] [address] [id number] [place] [address] Aug [facility] [place] [address] [id number] [place] [address] Aug, Insomnia, unspecified type G47.00 [facility] [place] [address] [id number] [place] [address] July Insomnia, unspecified type G47.00 [facility] [place] [address] [id number] [place] [address] July [facility] [place] [address] [id number] [place] [address] Jun Acute nasopharyngitis J00 [facility] [place] [address] [id number] [place] [address] May Drug-induced erectile dysfunction N52.2 ; Seizure R56.9 and Depressive disorder, not elsewhere classified F32.9 [facility] [place] [address] [id number] [place] [address] May [facility] [place] [address] [id number] [place] [address] May Insomnia, unspecified type G47.00 [facility] [place] [address] [id number] [place] [address] May Drug-induced erectile dysfunction N52.2 [facility] [address] [facility] [id number] [place] [address] Feb, [facility] [place] [address] [id number] [place] [address] Jan [facility] [place] [address] [id number] [place] [address] Dec [facility] [place] [address] [id number] [place] [address] Nov [facility] [place] [address] [id number] [place] [address] Nov [facility] [place] [address] [id number] [place] [address] Nov [facility] [place] [address] [id number] [place] [address] Nov Seizure R56.9 ; Insomnia, unspecified type G47.00 and Depression F32.9 [facility] [place] [address] [id number] [place] [address] Oct [facility] [place] [address] [id number] [place] [address] Oct [facility] [place] [address] [id number] [place] [address] Oct Depressive disorder, not elsewhere classified F32.9 ; Unspecified 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 of intractable epilepsy G40.909 and Insomnia, unspecified type G47.00 [facility] [place] [address] [id number] [place] [address] Sep Other insomnia G47.09 [facility] [place] [address] [place] [address] Sep, [facility] [place] [address] [id number] [place] [address] July Depression F32.9 and Seizure R56.9 [facility] [place] [address] [id number] [place] [address] Jun Depression F32.9 ; History of attempted suicide Z91.5 and Unspecified 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 of intractable epilepsy 345.90 [facility] [place] [address] [id number] [place] [address] May Depression F32.9 and History of attempted suicide Z91.5 [facility] [address] [facility] [id number] [address] May, [facility] [address] [id number] [place] [address] Mar Seizure disorder G40.909 ; Depression F32.9 and Suicide attempt by drug ingestion T50.902A [facility] [address] [id number] [address] Jun, [facility] [address]005[address]100[place] [address] Jun, [facility] [address] [id number] [address] Oct, [facility] [address]100[place] [address] Oct, [facility] [address]100[place] [address] Jun, [facility] [address]100[place] [address] Jun, [facility] [id number][place] [address] Jun, [facility] [address] [address] Jun, [facility] [address] [id number] [address] Mar, [facility] [address] [id number] [address] Mar, [facility] [id number], [place] [address] Mar, [facility] [address] [address] Mar, [facility] [address] [id number][place] [address] Mar, [facility] [address]100[place] [address] Mar, [facility] [address] [facility] [id number], [place] [address] Feb, [facility] [address] [id number] [place] [address] Feb, [facility] [address] [facility] [id number] [place] [address] Feb, [facility] [address] [facility] [id number] [place] [address] Feb, [facility] [address] [id number] [place] [address] Feb, [facility] [address] [facility] [id number] [place] [address] Feb, [facility] [address] [facility] [id number] [place] [address] Feb, [facility] [address] [id number][place] [address] Feb, [facility] [address] [facility] [id number] [place] [address] Jan, [facility] [address] [facility] [id number] [place] [address] Jan, [facility] [address] [facility] [id number] [place] [address] Jan, [facility] [address] [facility] [id number] [place] [address] Jan, [facility] [address] [facility] [id number][place] [address] Jan, [facility] [address] [id number] [place] [address] Jan, [facility] [address] [facility] [id number] [place] [address] Jan, [facility] [address] [facility] [id number] [place] [address] Jan, [facility] [address] [facility] [id number] [place] [address] Jan, [facility] [address] [facility] [id number] [place] [address] Jan, [facility] [address] [facility] [id number] [place] [address] Jan, [facility] [address] [facility] [id number], [place] [id number] Dec, [facility] [address] [facility] [id number] [place] [address] Dec, IMMUNIZATIONS No Known Immunizations SOCIAL HISTORY Never Assessed REASON FOR VISIT Ambien refill PLAN OF CARE VITAL SIGNS MEDICATIONS Medication [...] attempt 04/17/2015 Hospitalization History [facility]
--- NOTE | 2017-07-04 16:46 | ED Neurological Problem ---
General Chief Complaint: Neurological Problems Stated Complaint: SEIZURE Source: patient, EMS Exam Limitations: no limitations History of Present Illness Date Seen by Provider: Jul 04, 2017 Time Seen by Provider: 16:45 Initial Comments To ER per EMS from work at [employer] with reports of seizure-like activity while at work. He has a known seizure disorder. He takes Trileptal 600 mg by mouth twice a day and Keppra 1500 mg by mouth twice a day. He states he is certain that he did take his medications this morning. Upon EMS arrival he was postictal. There was no bumps or bruises to the head to suggest a head injury. He denies any pain anywhere. Did not bite his tongue. Timing/Duration: other Severity: moderate Allergies and Home Medications Allergies Coded Allergies: aspirin (Unverified Allergy, Mild, 03/03/16) PT'S SO STATES HE IS ALLERGIC TO ASPIRIN--WHEN ASKED WHAT THE REACTION IS SHE STATES HE HAS NOT ACTUALLY HAD ONE, BUT IS NOT SUPPOSED TO TAKE ASPIRIN D/T MEDICATION INTERACTION. Home Medications Fluoxetine HCl 60 Mg Tablet, 30 MG PO DAILY, (Reported) Levetiracetam 500 Mg Tablet, 1,500 MG PO BID, (Reported) Oxcarbazepine 600 Mg Tablet, 600 MG PO BID, (Reported) Patient Home Medication List Home Medication List Reviewed: Yes Review of Systems Constitutional: see HPI Eyes: No Symptoms Reported Ears, Nose, Mouth, Throat: no symptoms reported Respiratory: no symptoms reported Cardiovascular: no symptoms reported Genitourinary: no symptoms reported Musculoskeletal: no symptoms reported Skin: no symptoms reported Psychiatric/Neurological: See HPI Endocrine: No Symptoms Reported Hematologic/Lymphatic: No Symptoms Reported Past Hmtplug-Zzjtft-Baftfx Hx Patient Social History Type Used: Smokeless Tobacco Former Smoker, Quit: Nov 26, 2015 2nd Hand Smoke Exposure: No Recent Hopitalizations: No Immunizations Up To Date Tetanus Booster (TDap): Less than 5yrs Seasonal Allergies Seasonal Allergies: No Past Medical History Surgeries: Yes Eye Surgery Respiratory: No Cardiac: No Neurological: Yes Seizure Disorder Reproductive Disorders: No Gastrointestinal: No Musculoskeletal: Yes (ARM FX) Fractures Endocrine: No Loss of Vision: Denies Hearing Impairment: Denies Cancer: No Psychosocial: Yes Sleep Difficulties, Anxiety, Depression Integumentary: No Blood Disorders: No Adverse Reaction/Blood Tranf: No Family Medical History FH: stroke 19 FATHER Physical Exam Vital Signs Vital Signs - First Documented 07/04/17 16:45 Temp 98.6 Pulse 82 Resp 16 B/P (MAP) 120/73 (89) Pulse Ox 97 O2 Delivery Room Air Capillary Refill : General Appearance: WD/WN, no apparent distress, other (Alert and oriented to person place and time. Does not recall what happened. Cannot recall his seizure medications currently. ) HEENT: PERRL/EOMI, normal ENT inspection Neck: non-tender, full range of motion Respiratory: no respiratory distress, no accessory muscle use Cardiovascular: regular rate, rhythm, no murmur Gastrointestinal: normal bowel sounds, non tender, soft Extremities: normal range of motion, non-tender Neurologic/Psychiatric: alert, normal mood/affect, oriented x 3 Crainal Nerves: normal hearing, normal speech, PERRL Skin: normal color, warm/dry Progress/Results/Core Measures Lab Results Laboratory Tests Test 07/04/17 16:50 07/04/17 17:25 Range/Units White Blood Count 6.0 4.3-11.0 10^3/uL Red Blood Count 4.25 L 4.35-5.85 10^6/uL Hemoglobin 13.7 13.3-17.7 G/DL Hematocrit 40 40-54 % Mean Corpuscular Volume 94 80-99 FL Mean Corpuscular Hemoglobin 32 25-34 PG Mean Corpuscular Hemoglobin Concent 34 32-36 G/DL Red Cell Distribution Width 12.0 10.0-14.5 % Platelet Count 292 130-400 10^3/uL Mean Platelet Volume 10.1 7.4-10.4 FL Neutrophils (%) (Auto) 68 42-75 % Lymphocytes (%) (Auto) 23 12-44 % Monocytes (%) (Auto) 8 0-12 % Eosinophils (%) (Auto) 2 0-10 % Basophils (%) (Auto) 0 0-10 % Neutrophils # (Auto) 4.0 1.8-7.8 X 10^3 Lymphocytes # (Auto) 1.4 1.0-4.0 X 10^3 Monocytes # (Auto) 0.5 0.0-1.0 X 10^3 Eosinophils # (Auto) 0.1 0.0-0.3 10^3/uL Basophils # (Auto) 0.0 0.0-0.1 10^3/uL Sodium Level 142 135-145 MMOL/L Potassium Level 4.2 3.6-5.0 MMOL/L Chloride Level 107 98-107 MMOL/L Carbon Dioxide Level 23 21-32 MMOL/L Anion Gap 12 5-14 MMOL/L Blood Urea Nitrogen 14 7-18 MG/DL Creatinine 0.94 0.60-1.30 MG/DL Estimat Glomerular Filtration Rate > 60 BUN/Creatinine Ratio 15 Glucose Level 94 70-105 MG/DL Calcium Level 9.2 8.5-10.1 MG/DL Total Bilirubin 0.4 0.1-1.0 MG/DL Aspartate Amino Transf (AST/SGOT) 25 5-34 U/L Alanine Aminotransferase (ALT/SGPT) 20 0-55 U/L Alkaline Phosphatase 83 40-136 U/L Total Protein 7.4 6.4-8.2 GM/DL Albumin 4.3 3.2-4.5 GM/DL Urine Color YELLOW Urine Clarity CLEAR Urine pH 6 5-9 Urine Specific [place] 1.015 L 1.016-1.022 Urine Protein 2+ H NEGATIVE Urine Glucose (UA) NEGATIVE NEGATIVE Urine Ketones NEGATIVE NEGATIVE Urine Nitrite NEGATIVE NEGATIVE Urine Bilirubin NEGATIVE NEGATIVE Urine Urobilinogen 1 NORMAL MG/DL Urine Leukocyte Esterase 1+ H NEGATIVE Urine RBC (Auto) NEGATIVE NEGATIVE Urine RBC NONE /HPF Urine WBC 0-2 /HPF Urine Crystals NONE /LPF Urine Bacteria NEGATIVE /HPF Urine Casts NONE /LPF Urine Mucus SMALL H /LPF Urine Culture Indicated NO My Orders Orders - SEBASTIAN PALOMINO APRN Cbc With Automated Diff (07/04/17 16:43) Comprehensive Metabolic Panel (07/04/17 16:43) Ua Culture If Indicated (07/04/17 16:43) Saline Lock/Iv-Start (07/04/17 16:43) Ns Iv 1000 Ml (Sodium Chloride 0.9%) (07/04/17 16:45) Oxcarbazepine Tablet (Trileptal Tablet) (07/04/17 16:45) Levetiracetam Tablet (Keppra Tablet) (07/04/17 16:45) Vital Signs/I&O 07/04/17 16:45 Temp 98.6 Pulse 82 Resp 16 B/P (MAP) 120/73 (89) Pulse Ox 97 O2 Delivery Room Air Departure Impression Primary Impression: Seizure disorder Disposition: 01 HOME, SELF-CARE Condition: Stable Departure-Patient Inst. Decision time for Depature: 16:48 Referrals: [facility] (PCP/Family) Primary Care Physician Patient Instructions: Seizures, Adult (DC) Add. Discharge Instructions: 1. No driving or operating dangerous equipment or heavy machinery until cleared by your physician. All discharge instructions reviewed with patient and/or family. Voiced understanding. [facility] Jul 04, 2017 16:46
--- OUTSIDE RECORDS SUMMARY | 2017-07-04 16:46 | XMS REPORT ---
Author Author BOBBI GUZMAN [facility] Address [address] [place] [address] Care Team Providers Care Deaf/Hard Of Hearing Specialist Name Role Phone BOBBI GUZMAN Unavailable PROBLEMS Type Condition ICD9-CM Code ULX91-CN Code Onset Dates Condition Status SNOMED Code Problem Unspecified 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 of intractable epilepsy G40.909 Active 24756272 Problem Depressive disorder, not elsewhere classified F32.9 Active 92976933 Problem Drug-induced erectile dysfunction N52.2 Active 940650998 Problem Insomnia, unspecified type G47.00 Active 338394230 Problem History of attempted suicide Z91.5 Active 560526001 Problem Viral warts, unspecified 078.10 Active 78611533 Problem Seizure R56.9 Active 07285420 Problem Depression F32.9 Active 04529689 ALLERGIES Substance Reaction Event Type Date Status Trazodone HCl Seizures Drug Allergy Sep, Active Asa Seizure Drug Allergy Sep, Active ENCOUNTERS Encounter Location Date Diagnosis [facility] [address] [id number] [place] [address] May [facility] [address] [id number] [place] [address] [facility] [address] [id number] [place] [address] Mar [facility] [address] [id number] [place] [address] Feb Contusion of left elbow, subsequent encounter S50.02XD [facility] [address] [id number] [place] [address] Feb Contusion of left elbow, subsequent encounter S50.02XD [facility] [address] [id number] [place] [address] Feb Contusion of left elbow, subsequent encounter S50.02XD [facility] [place] [address] [id number] [place] [address] Dec Insomnia, unspecified type G47.00 ; Seizure R56.9 and Acute nasopharyngitis J00 [facility] [place] [address] [id number] [place] [address] Nov Insomnia, unspecified type G47.00 [facility] [place] [address] [id number] [place] [address] Sep [facility] [place] [address] [id number] [place] [address] Sep Depression F32.9 and Insomnia, unspecified type G47.00 [facility] [place] [address] [id number] [place] [address] Aug [facility] [address] [id number] [place] [id number] Aug, Insomnia, unspecified type G47.00 [facility] [place] [address] [id number] [place] [address] July Insomnia, unspecified type G47.00 [facility] [place] [address] [id number] [place] [address] July [facility] [place] [address] [id number] [place] [address] Jun Acute nasopharyngitis J00 [facility] [place] [address] [id number] [place] [address] May Drug-induced erectile dysfunction N52.2 ; Seizure R56.9 and Depressive disorder, not elsewhere classified F32.9 [facility] [place] [address] [id number] [place] [address] May [facility] [place] [address] [id number] [place] [address] May Insomnia, unspecified type G47.00 [facility] [place] [address] [id number] [place] [address] May Drug-induced erectile dysfunction N52.2 [facility] [address] [facility] [id number] [place] [address] Feb, 2016 [facility] [place] [address] [id number] [place] [address] Jan [facility] [place] [address] [id number] [place] [address] Dec [facility] [place] [address] [id number] [place] [address] Nov [facility] [place] [address] [id number] [place] [address] Nov [facility] [place] [address] [id number] [place] [address] Nov [facility] [place] [address] [id number] [place] [address] Nov Seizure R56.9 ; Insomnia, unspecified type G47.00 and Depression F32.9 [facility] [place] [address] [id number] [place] [address] Oct [facility] [place] [address] [id number] [place] [address] Oct [facility] [place] [address] [id number] [place] [address] Oct Depressive disorder, not elsewhere classified F32.9 ; Unspecified 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 of intractable epilepsy G40.909 and Insomnia, unspecified type G47.00 [facility] [place] [address] [id number] [place] [address] Sep Other insomnia G47.09 [facility] [place] [address] [place] [address] Sep, [facility] [place] [address] [id number] [place] [address] July Depression F32.9 and Seizure R56.9 [facility] [place] [address] [id number] [place] [address] Jun Depression F32.9 ; History of attempted suicide Z91.5 and Unspecified 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 of intractable epilepsy 345.90 [facility] [place] [address] [id number] [place] [address] 30 May Depression F32.9 and History of attempted suicide Z91.5 [facility] [address], [place] [address] 08 May, 2015 [facility] [place] [address] [id number] [place] [address] Mar Seizure disorder G40.909 ; Depression F32.9 and Suicide attempt by drug ingestion T50.902A [facility] [address] [id number], [place] [address] Jun, [facility] [id number] [place] [address] Jun, [facility] [address], [place] [address] Oct, [facility] [address] [id number], [place] [address] Oct, [facility] [address], [place] [address] Jun, [facility] [address], [place] [address] Jun, [facility] [id number] [place] [address] Jun, [facility] [address], [place] [address] Jun, [facility] [address], [place] [address] Mar, [facility] [address], [place] [address] Mar, [facility] [id number] [place] [id number] Mar, [facility] [address] [place] [address] Mar, [facility] [address] [facility] [id number] [place] [id number] Mar, [facility] [address] [facility] [id number], [place] [address] Mar, [facility] [address] [facility] [id number] [place] [id number] Feb, [facility] [address] [id number], [place] [address] Feb, [facility] [address] [facility] [id number], [place] [address] Feb, [facility] [address] [facility] [id number], [place] [address] Feb, [facility] [address] [facility] [id number], [place] [address] Feb, [facility] [address] [facility] [id number], [place] [address] Feb, [facility] [address] [facility] [id number], [place] [address] Feb, [facility] [address] [facility] [id number] [place] [id number] Feb, [facility] [address] [facility] [id number], [place] [address] Jan, [facility] [address] [facility] [id number], [place] [address] Jan, [facility] [address] [id number], [place] [address] Jan, [facility] [address] [facility] [id number], [place] [address] Jan, [facility] [address] [facility] [id number] [place] [id number] Jan, [facility] [address] [id number], [place] [address] Jan, [facility] [address] [id number], [place] [address] Jan, [facility] [id number] [place] [id number] Jan, [facility] [address]65100[place], [place] [address] Jan, [facility] [address] [id number], [place] [address] Jan, [facility] [address]65100[place], [place] [address] Jan, [facility] [address] [id number] [place] [id number] Dec, [facility] [address], [place] [address] Dec, IMMUNIZATIONS No Known Immunizations SOCIAL HISTORY Never Assessed REASON FOR VISIT Anxiety/ med increase, Pt states his job stress him out., Pt not sleeping well. JOHANNA Johnson PLAN OF CARE Activity Details Follow Up 4 Weeks Reason:insomnia VITAL SIGNS Height 67.5 in 2016-09-30 Weight 208.6 lbs 2016-09-30 Temperature 97.5 degrees Fahrenheit 2016-09-30 Heart Rate 72 bpm 2016-09-30 Respiratory Rate 18 2016-09-30 BMI 32.19 kg/m2 2016-09-30 Blood pressure systolic 100 mmHg 2016-09-30 Blood pressure diastolic 66 mmHg 2016-09-30 MEDICATIONS Medication Instructions Dosage Frequency Start Date End Date Duration Status Levetiracetam 500 MG 3 tab 2 times a day Orally 30 days 30 Active Mirtazapine 15 MG Orally Once a day 1 tablet before bedtime in the evening 24h Jun, 30 day(s) Active Fluoxetine HCl 20 mg 1 tablet Once a day Orally 30 days 30 Active Oxcarbazepine 600 MG TAKE 1 TABLET BY MOUTH TWICE DAILY 30 Active Ambien 5 mg Orally Once a [...] attempt 04/17/2015 Hospitalization History Generalized Tonic Clonic Seizure-VC 03/02/2015
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
[2017-07-04 17:00] LABS: BASOPHILS % (AUTO) 0 % (0-10); EOSINOPHILS # (AUTO) 0.1 10^3/uL (0.0-0.3); EOSINOPHILS % (AUTO) 2 % (0-10); HEMATOCRIT 40 % (40-54); HEMOGLOBIN 13.7 G/DL (13.3-17.7); LYMPHOCYTES # (AUTO) 1.4 X 10^3 (1.0-4.0); LYMPHOCYTES % (AUTO) 23 % (12-44); MEAN CORPUSCULAR HEMOGLOBIN 32 PG (25-34); MEAN CORPUSCULAR HGB CONC 34 G/DL (32-36); MEAN CORPUSCULAR VOLUME 94 FL (80-99); MEAN PLATELET VOLUME 10.1 FL (7.4-10.4); MONOCYTES # (AUTO) 0.5 X 10^3 (0.0-1.0); MONOCYTES % (AUTO) 8 % (0-12); NEUTROPHILS % (AUTO) 68 % (42-75); PLATELET COUNT 292 10^3/uL (130-400); RED BLOOD COUNT 4.25 10^6/uL (4.35-5.85)
[2017-07-04 17:34] LABS: ALANINE AMINOTRANSFERASE 20 U/L (0-55); ALBUMIN 4.3 GM/DL (3.2-4.5); ALKALINE PHOSPHATASE 83 U/L (40-136); BILIRUBIN,TOTAL 0.4 MG/DL (0.1-1.0); BUN/CREATININE RATIO 15; CALCIUM 9.2 MG/DL (8.5-10.1); CARBON DIOXIDE 23 MMOL/L (21-32); CHLORIDE 107 MMOL/L (98-107); CREATININE SERUM 0.94 MG/DL (0.60-1.30); GFR ESTIMATED > 60; GLUCOSE 94 MG/DL (70-105); POTASSIUM 4.2 MMOL/L (3.6-5.0); SODIUM 142 MMOL/L (135-145); TOTAL PROTEIN 7.4 GM/DL (6.4-8.2)
[2017-07-04 17:37] LABS: BILIRUBIN,URINE NEGATIVE (NEGATIVE); CLARITY,URINE CLEAR; COLOR,URINE YELLOW; GLUCOSE, URINE (UA) NEGATIVE (NEGATIVE); KETONES,URINE NEGATIVE (NEGATIVE); LEUKOCYTE ESTERASE ,URINE 1+ (NEGATIVE); NITRITE,URINE NEGATIVE (NEGATIVE); PH,URINE 6 (5-9); PROTEIN,URINE 2+ (NEGATIVE); UROBILINOGEN,URINE 1 MG/DL (NORMAL)
[2017-07-04 17:45] LABS: BACTERIA,URINE NEGATIVE /HPF; WBC,URINE 0-2 /HPF
--- NOTE | 2017-07-04 18:37 | Diagnostic Imaging Report ---
INDICATION: Seizure and right elbow pain. TIME OF EXAM: 6:43 PM FINDINGS: Three views of the right elbow are obtained. Alignment is normal. The joint spaces are well-maintained. No fracture, dislocation or effusion is identified. A well-corticated osseous density along the medial elbow is seen, which appears chronic. IMPRESSION: No acute abnormality is detected. Dictated by: Dictated on workstation # [id number]
[2017-07-04 19:12] VITALS: BP 110/76
== END 2017-07-04 19:11 | disposition home or self-care (01) ==
LOC: EDUNIT# 16:39 → ER 16:40
DX: G40.909 Epilepsy, unspecified, not intractable, without status epilepticus (principal); F41.9 Anxiety disorder, unspecified; F32.9 Major depressive disorder, single episode, unspecified; Z88.6 Allergy status to analgesic agent; Z87.891 Personal history of nicotine dependence
CPT/HCPCS: 36415; 73080; 80053; 81000; 85025; 96360; 96361

== ENCOUNTER 2017-09-17 19:08 | Emergency (ER) | payer BC ==
[~2017-09-17] VITALS: Ht 175.3 cm; Wt 92.5 kg
[2017-09-17 19:43] LABS: BILIRUBIN,URINE NEGATIVE (NEGATIVE); CLARITY,URINE CLEAR; COLOR,URINE YELLOW; GLUCOSE, URINE (UA) NEGATIVE (NEGATIVE); KETONES,URINE NEGATIVE (NEGATIVE); LEUKOCYTE ESTERASE ,URINE NEGATIVE (NEGATIVE); NITRITE,URINE NEGATIVE (NEGATIVE); PH,URINE 5 (5-9); PROTEIN,URINE 2+ (NEGATIVE); UROBILINOGEN,URINE NORMAL (NORMAL)
[2017-09-17] MEDS ORDERED: LEVETIRACETAM 500 MG (KEPPRA) TAB PO ONE (19:45)
[2017-09-17 19:50] LABS: BASOPHILS % (AUTO) 1 % (0-10); EOSINOPHILS # (AUTO) 0.1 10^3/uL (0.0-0.3); EOSINOPHILS % (AUTO) 1 % (0-10); HEMATOCRIT 40 % (40-54); HEMOGLOBIN 14.1 G/DL (13.3-17.7); LYMPHOCYTES # (AUTO) 2.7 X 10^3 (1.0-4.0); LYMPHOCYTES % (AUTO) 32 % (12-44); MEAN CORPUSCULAR HEMOGLOBIN 34 PG (25-34); MEAN CORPUSCULAR HGB CONC 36 G/DL (32-36); MEAN CORPUSCULAR VOLUME 94 FL (80-99); MEAN PLATELET VOLUME 10.6 FL (7.4-10.4); MONOCYTES # (AUTO) 0.6 X 10^3 (0.0-1.0); MONOCYTES % (AUTO) 7 % (0-12); NEUTROPHILS # (AUTO) 4.9 X 10^3 (1.8-7.8); NEUTROPHILS % (AUTO) 59 % (42-75); PLATELET COUNT 298 10^3/uL (130-400); RED BLOOD COUNT 4.21 10^6/uL (4.35-5.85); RED CELL DISTRIBUTION WIDTH 12.2 % (10.0-14.5); WHITE BLOOD COUNT 8.4 10^3/uL (4.3-11.0)
[2017-09-17 19:56] LABS: AMPHETAMINE SCREEN, URINE NEGATIVE (NEGATIVE); BARBITURATE SCREEN URINE NEGATIVE (NEGATIVE); BENZODIAZEPINES SCREEN URINE NEGATIVE (NEGATIVE); CANNABINOID SCREEN, URINE POSITIVE (NEGATIVE); COCAINE SCREEN URINE NEGATIVE (NEGATIVE); METHADONE STAT NEGATIVE (NEGATIVE); METHAMPHETAMINE SCREEN URINE S NEGATIVE (NEGATIVE); OPIATE SCREEN URINE NEGATIVE (NEGATIVE); OXYCODONE STAT NEGATIVE (NEGATIVE); PROPOXYPHENE STAT NEGATIVE (NEGATIVE); TRICYCLIC ANTIDEPRESSANTS SCRE NEGATIVE (NEGATIVE)
[2017-09-17 19:58] LABS: BACTERIA,URINE NEGATIVE /HPF; GRANULAR CASTS,URINE 0-2 /LPF; HYALINE CASTS, URINE 25-50 /LPF; SQUAMOUS EPITHELIAL CELL,UR RARE /HPF
--- NOTE | 2017-09-17 20:00 | ED Neurological Problem ---
General Chief Complaint: Neurological Problems Stated Complaint: SEIZURE/FALL Nursing Triage Note: patient was found to be having seizure like activity outside by neighbors. patient was found to be confused by EMS. patient is alert on arrival to ER but was not aware of [facility] Nursing Sepsis Screen: No Definite Risk Source: patient Exam Limitations: no limitations History of Present Illness Date Seen by Provider: Sep 17, 2017 Time Seen by Provider: 19:09 Initial Comments This 37-year-old gentleman presents to the emergency room via EMS after having a witnessed seizure in the yard at home. Patient has a known seizure history and he takes Keppra and oxcarbazepine. He states he did take his doses this morning around 07:00 or 08:00. Patient had epistaxis which has now stopped. He also has a contusion or abrasion to the tongue from bite injury. There is no active bleeding at this time. Patient was postictal for EMS but is now fully alert and oriented on arrival. Patient denies any recent illness but states he has been working overtime and has been sleep deprived and stressed lately. Fingerstick blood sugar on arrival was 99. Patient denies any drug or alcohol use. Patient reports his last seizure was months ago. Allergies and Home Medications Allergies Coded Allergies: aspirin (Unverified Allergy, Mild, 03/03/16) PT'S SO STATES HE IS ALLERGIC TO ASPIRIN--WHEN ASKED WHAT THE REACTION IS SHE STATES HE HAS NOT ACTUALLY HAD ONE, BUT IS NOT SUPPOSED TO TAKE ASPIRIN D/T MEDICATION INTERACTION. Home Medications Fluoxetine HCl 60 Mg Tablet, 30 MG PO DAILY, (Reported) Levetiracetam 500 Mg Tablet, 1,500 MG PO BID, (Reported) Oxcarbazepine 600 Mg Tablet, 600 MG PO BID, (Reported) Patient Home Medication List Home Medication List Reviewed: Yes Review of Systems Constitutional: no symptoms reported Eyes: No Symptoms Reported Ears, Nose, Mouth, Throat: see HPI Respiratory: no symptoms reported Cardiovascular: no symptoms reported Gastrointestinal: no symptoms reported Genitourinary: no symptoms reported Musculoskeletal: no symptoms reported Skin: no symptoms reported Psychiatric/Neurological: See HPI Endocrine: No Symptoms Reported Hematologic/Lymphatic: No Symptoms Reported Past Zutdgwh-Boifwf-Tnwhrq Hx Past Med/Social Hx: Reviewed Nursing Past Med/Soc Hx Patient Social History Alcohol Use: Denies Use Number of Drinks Today: GG Alcohol Beverage of Choice: Whiskey Recreational Drug Use: No Smoking Status: Current Everyday Smoker Type Used: Cigarettes, Smokeless Tobacco Former Smoker, Quit: Nov 26, 2015 2nd Hand Smoke Exposure: No Recent Foreign Travel: No Contact w/Someone Who Travel: No Recent Infectious Disease Expo: No Recent Hopitalizations: No Immunizations Up To Date Tetanus Booster (TDap): Less than 5yrs Seasonal Allergies Seasonal Allergies: No Past Medical History Surgeries: Yes Eye Surgery Respiratory: No Cardiac: No Neurological: Yes Seizure Disorder Reproductive Disorders: No Genitourinary: No Gastrointestinal: No Musculoskeletal: Yes (ARM FX) Fractures Endocrine: No Loss of Vision: Denies Hearing Impairment: Denies Cancer: No Psychosocial: Yes Sleep Difficulties, Anxiety, Depression Integumentary: No Blood Disorders: No Adverse Reaction/Blood Tranf: No Family Medical History Reviewed Nursing Family Hx FH: stroke 19 FATHER Physical Exam Vital Signs Vital Signs - First Documented 09/17/17 19:11 Temp 98.4 Pulse 84 Resp 18 B/P (MAP) 118/72 (87) Pulse Ox 99 Capillary Refill : Less Than 3 Seconds General Appearance: WD/WN, no apparent distress HEENT: TMs normal, pharynx normal, other (pupils equally reactive to light and accommodation. 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 Vision grossly intact. Very poor dentition with most of his teeth missing. Remaining teeth are intact. Minor abrasion/ contusion of tongue. Dry blood in the nostrils and on the face with no active bleeding. No facial tenderness. 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, no motor/sensory deficits, alert, normal mood/affect, oriented x 3 Crainal Nerves: normal hearing, normal speech Motor/Sensory: no motor deficit, no sensory deficit Skin: normal color, warm/dry Progress/Results/Core Measures Results/Orders Lab Results Laboratory Tests Test 09/17/17 19:15 09/17/17 19:36 Range/Units White Blood Count 8.4 4.3-11.0 10^3/uL Red Blood Count 4.21 L 4.35-5.85 10^6/uL Hemoglobin 14.1 13.3-17.7 G/DL Hematocrit 40 40-54 % Mean Corpuscular Volume 94 80-99 FL Mean Corpuscular Hemoglobin 34 25-34 PG Mean Corpuscular Hemoglobin Concent 36 32-36 G/DL Red Cell Distribution Width 12.2 10.0-14.5 % Platelet Count 298 130-400 10^3/uL Mean Platelet Volume 10.6 H 7.4-10.4 FL Neutrophils (%) (Auto) 59 42-75 % Lymphocytes (%) (Auto) 32 12-44 % Monocytes (%) (Auto) 7 0-12 % Eosinophils (%) (Auto) 1 0-10 % Basophils (%) (Auto) 1 0-10 % Neutrophils # (Auto) 4.9 1.8-7.8 X 10^3 Lymphocytes # (Auto) 2.7 1.0-4.0 X 10^3 Monocytes # (Auto) 0.6 0.0-1.0 X 10^3 Eosinophils # (Auto) 0.1 0.0-0.3 10^3/uL Basophils # (Auto) 0.0 0.0-0.1 10^3/uL Sodium Level 141 135-145 MMOL/L Potassium Level 3.7 3.6-5.0 MMOL/L Chloride Level 107 98-107 MMOL/L Carbon Dioxide Level 16 L 21-32 MMOL/L Anion Gap 18 H 5-14 MMOL/L Blood Urea Nitrogen 16 7-18 MG/DL Creatinine 0.88 0.60-1.30 MG/DL Estimat Glomerular Filtration Rate > 60 BUN/Creatinine Ratio 18 Glucose Level 94 70-105 MG/DL Glucometer 99 70-110 MG/DL Calcium Level 9.3 8.5-10.1 MG/DL Magnesium Level 1.9 1.8-2.4 MG/DL Total Bilirubin 0.5 0.1-1.0 MG/DL Aspartate Amino Transf (AST/SGOT) 20 5-34 U/L Alanine Aminotransferase (ALT/SGPT) 19 0-55 U/L Alkaline Phosphatase 76 40-136 U/L Total Protein 7.2 6.4-8.2 GM/DL Albumin 4.4 3.2-4.5 GM/DL Serum Alcohol < 10 <10 MG/DL Urine Color YELLOW Urine Clarity CLEAR Urine pH 5 5-9 Urine Specific Armstrong 1.020 1.016-1.022 Urine Protein 2+ H NEGATIVE Urine Glucose (UA) NEGATIVE NEGATIVE Urine Ketones NEGATIVE NEGATIVE Urine Nitrite NEGATIVE NEGATIVE Urine Bilirubin NEGATIVE NEGATIVE Urine Urobilinogen NORMAL NORMAL MG/DL Urine Leukocyte Esterase NEGATIVE NEGATIVE Urine RBC (Auto) NEGATIVE NEGATIVE Urine RBC NONE /HPF Urine WBC NONE /HPF Urine Squamous Epithelial Cells RARE /HPF Urine Crystals NONE /LPF Urine Bacteria NEGATIVE /HPF Urine Casts PRESENT /LPF Urine Hyaline Casts 25-50 H /LPF Urine Granular Casts 0-2 H /LPF Urine Mucus NEGATIVE /LPF Urine Culture Indicated NO Urine Opiates Screen NEGATIVE NEGATIVE Urine Oxycodone Screen NEGATIVE NEGATIVE Urine Methadone Screen NEGATIVE NEGATIVE Urine Propoxyphene Screen NEGATIVE NEGATIVE Urine Barbiturates Screen NEGATIVE NEGATIVE Ur Tricyclic Antidepressants Screen NEGATIVE NEGATIVE Urine Phencyclidine Screen NEGATIVE NEGATIVE Urine Amphetamines Screen NEGATIVE NEGATIVE Urine Methamphetamines Screen NEGATIVE NEGATIVE Urine Benzodiazepines Screen NEGATIVE NEGATIVE Urine Cocaine Screen NEGATIVE NEGATIVE Urine Cannabinoids Screen POSITIVE H NEGATIVE My Orders Orders - MAGALYS BYRNE MD Alcohol (09/17/17 19:35) Cbc With Automated Diff (09/17/17 19:35) Comprehensive Metabolic Panel (09/17/17 19:35) Drug Screen Stat (Urine) (09/17/17 19:35) Magnesium (09/17/17 19:35) Ua Culture If Indicated (09/17/17 19:35) Levetiracetam Tablet (Keppra Tablet) (09/17/17 19:45) Medications Given in ED Current Medications Medications Dose Ordered Sig/Susanne Route Start Time Stop Time Status Last Admin Dose Admin Levetiracetam 1,000 mg ONCE ONCE PO 09/17/17 19:45 09/17/17 19:46 DC 09/17/17 19:44 1,000 MG Vital Signs/I&O 09/17/17 19:11 Temp 98.4 Pulse 84 Resp 18 B/P (MAP) 118/72 (87) Pulse Ox 99 Blood Pressure Mean: 87 Progress Progress Note : Time: 20:00 Progress Note Patient has been seen and examined. Labs are in process. Patient is due for his evening Keppra. He will be given an oral dose of 1000 mg. He is fully alert and oriented at this time. Departure Impression Primary Impression: Seizure disorder Additional Impressions: Facial contusion Qualified Codes: S00.83XA - Contusion of other part of head, initial encounter Tongue injury Qualified Codes: S09.93XA - Unspecified injury of face, initial encounter Disposition: 01 HOME, SELF-CARE Condition: Improved Departure-Patient Inst. Decision time for Depature: 20:22 Referrals: [facility] [place] (PCP/Family) Primary Care Physician Patient Instructions: Seizures, Adult (DC) Add. Discharge Instructions: Follow-up with your prescribing physician tomorrow to discuss your anti-seizure medication doses. Continue with your current doses until then. Try to get plenty of rest and decrease your stress is much as possible to reduce your risk of seizure. Also avoid any psychoactive substances such as alcohol or marijuana reduce risk of seizure. Stay well-hydrated. Return to care if you have any further problems or concerns. Keep your appointment with the neurologist. Do not drive or operate machinery for at least 6 months unless you are otherwise cleared by your neurologist. Also avoid situations in which you or others may be injured if another seizure occurs. Such situations might include swimming, use of heights like ladders, bike riding, etc. All discharge instructions reviewed with patient and/or family. Voiced understanding. MAGALYS BYRNE MD Sep 17, 2017 20:00
[2017-09-17 20:04] LABS: ALANINE AMINOTRANSFERASE 19 U/L (0-55); ALBUMIN 4.4 GM/DL (3.2-4.5); ALKALINE PHOSPHATASE 76 U/L (40-136); BILIRUBIN,TOTAL 0.5 MG/DL (0.1-1.0); BUN/CREATININE RATIO 18; CALCIUM 9.3 MG/DL (8.5-10.1); CARBON DIOXIDE 16 MMOL/L (21-32); CHLORIDE 107 MMOL/L (98-107); CREATININE SERUM 0.88 MG/DL (0.60-1.30); GFR ESTIMATED > 60; GLUCOSE 94 MG/DL (70-105); MAGNESIUM 1.9 MG/DL (1.8-2.4); POTASSIUM 3.7 MMOL/L (3.6-5.0); SODIUM 141 MMOL/L (135-145); TOTAL PROTEIN 7.2 GM/DL (6.4-8.2)
[2017-09-17 20:30] VITALS: BP 116/76
== END 2017-09-17 20:30 | disposition home or self-care (01) ==
LOC: EDUNIT# 19:08 → ER 19:09
DX: S00.532A Contusion of oral cavity, initial encounter (principal); G40.909 Epilepsy, unspecified, not intractable, without status epilepticus; F41.9 Anxiety disorder, unspecified; F32.9 Major depressive disorder, single episode, unspecified; Z87.891 Personal history of nicotine dependence; Z98.890 Other specified postprocedural states; Z72.89 Other problems related to lifestyle; Z87.81 Personal history of (healed) traumatic fracture; Z88.6 Allergy status to analgesic agent; W19.XXXA Unspecified fall, initial encounter
CPT/HCPCS: 36415; 80053; 80306; 80320; 81000; 82962; 83735; 85025; 99283

== ENCOUNTER 2017-09-28 17:24 | Emergency (ER) | payer BC ==
[~2017-09-28] VITALS: Ht 175.3 cm; Wt 92.6 kg
[~2017-09-28 17:24] MED LIST changes: +TRAZ-190 PO; -TRAZ100T92 PO
[2017-09-28 17:52] LABS: BASOPHILS % (AUTO) 0 % (0-10); EOSINOPHILS # (AUTO) 0.1 10^3/uL (0.0-0.3); EOSINOPHILS % (AUTO) 1 % (0-10); HEMATOCRIT 38 % (40-54); LYMPHOCYTES # (AUTO) 2.1 X 10^3 (1.0-4.0); LYMPHOCYTES % (AUTO) 24 % (12-44); MEAN CORPUSCULAR HEMOGLOBIN 32 PG (25-34); MEAN CORPUSCULAR HGB CONC 35 G/DL (32-36); MEAN CORPUSCULAR VOLUME 94 FL (80-99); MEAN PLATELET VOLUME 9.9 FL (7.4-10.4); MONOCYTES # (AUTO) 0.8 X 10^3 (0.0-1.0); MONOCYTES % (AUTO) 9 % (0-12); NEUTROPHILS # (AUTO) 5.6 X 10^3 (1.8-7.8); NEUTROPHILS % (AUTO) 66 % (42-75); PLATELET COUNT 318 10^3/uL (130-400); RED BLOOD COUNT 4.02 10^6/uL (4.35-5.85); RED CELL DISTRIBUTION WIDTH 12.5 % (10.0-14.5); WHITE BLOOD COUNT 8.5 10^3/uL (4.3-11.0)
--- NOTE | 2017-09-28 17:56 | ED Neurological Problem ---
General Chief Complaint: Neurological Problems Stated Complaint: SEIZURE Nursing Triage Note: PT TO [facility] FROM WORK WITH CC OF SEIZURE, PT WAS AT WORK IN THE HEAT AND HAD A SEIZURE. EMS STATED PT WAS POSTECTAL ON EMS ARRIVAL AND THEY STATED HE WAS WORKING IN A HOT AREA WITH NO AIR CIRCULATION. ON ARRIVAL TO ER PT WAS STARTING TO COME AROUND, KNEW HIS BIRTHDAY AND REALIZED HE HAD A SEIZURE AT WORK. PT DENIES ANY PAIN OR HITTING HIS HEAD. Nursing Sepsis Screen: No Definite Risk Source: patient Exam Limitations: no limitations History of Present Illness Date Seen by Provider: Sep 28, 2017 Time Seen by Provider: 17:56 Initial Comments To ER by EMS with reports of a seizure while at work at [employer] in the heat. His area is not air conditioned and there is poor air flow.he takes Keppra for seizures and denies having missed any doses.denies any injury as a result of the fall. Timing/Duration: 1-3 hours Severity: moderate Allergies and Home Medications Allergies Coded Allergies: aspirin (Unverified Allergy, Mild, 03/03/16) PT'S SO STATES HE IS ALLERGIC TO ASPIRIN--WHEN ASKED WHAT THE REACTION IS SHE STATES HE HAS NOT ACTUALLY HAD ONE, BUT IS NOT SUPPOSED TO TAKE ASPIRIN D/T MEDICATION INTERACTION. Home Medications Fluoxetine HCl 60 Mg Tablet, 30 MG PO DAILY, (Reported) Levetiracetam 500 Mg Tablet, 1,500 MG PO BID, (Reported) Oxcarbazepine 600 Mg Tablet, 600 MG PO BID, (Reported) Patient Home Medication List Home Medication List Reviewed: Yes Review of Systems Constitutional: see HPI Eyes: No Symptoms Reported Ears, Nose, Mouth, Throat: no symptoms reported Respiratory: no symptoms reported Cardiovascular: no symptoms reported Genitourinary: no symptoms reported Musculoskeletal: no symptoms reported Skin: no symptoms reported Psychiatric/Neurological: No Symptoms Reported Endocrine: No Symptoms Reported Hematologic/Lymphatic: No Symptoms Reported Past Rqpptbi-Wdrdef-Geidah Hx Patient Social History Alcohol Use: Denies Use Number of Drinks Today: GG Alcohol Beverage of Choice: Whiskey Recreational Drug Use: No (HX OF THC BUT QUIT) Smoking Status: Current Someday Smoker Type Used: Cigarettes, Smokeless Tobacco Former Smoker, Quit: Nov 26, 2015 2nd Hand Smoke Exposure: No Recent Foreign Travel: No Contact w/Someone Who Travel: No Recent Infectious Disease Expo: No Recent Hopitalizations: No Immunizations Up To Date Tetanus Booster (TDap): Less than 5yrs Seasonal Allergies Seasonal Allergies: No Past Medical History Surgeries: Yes Eye Surgery Respiratory: No Cardiac: No Neurological: Yes Seizure Disorder Reproductive Disorders: No Genitourinary: No Gastrointestinal: No Musculoskeletal: Yes (ARM FX) Fractures Endocrine: No Loss of Vision: Denies Hearing Impairment: Denies Cancer: No Psychosocial: Yes Sleep Difficulties, Anxiety, Depression Integumentary: No Blood Disorders: No Adverse Reaction/Blood Tranf: No Family Medical History FH: stroke 19 FATHER Physical Exam Vital Signs Vital Signs - First Documented 09/28/17 17:28 Temp 99.3 Pulse 84 Resp 20 B/P (MAP) 122/78 (93) Pulse Ox 96 O2 Delivery Room Air Capillary Refill : Less Than 3 Seconds General Appearance: WD/WN, no apparent distress HEENT: PERRL/EOMI, normal ENT inspection Neck: non-tender, full range of motion Respiratory: no respiratory distress, no accessory muscle use Cardiovascular: regular rate, rhythm, no murmur Gastrointestinal: normal bowel sounds, non tender, soft Neurologic/Psychiatric: alert, normal mood/affect, oriented x 3 Crainal Nerves: normal hearing, normal speech Skin: normal color, warm/dry Progress/Results/Core Measures Results/Orders Lab Results Laboratory Tests Test 09/28/17 17:30 09/28/17 18:00 Range/Units White Blood Count 8.5 4.3-11.0 10^3/uL Red Blood Count 4.02 L 4.35-5.85 10^6/uL Hemoglobin 13.0 L 13.3-17.7 G/DL Hematocrit 38 L 40-54 % Mean Corpuscular Volume 94 80-99 FL Mean Corpuscular Hemoglobin 32 25-34 PG Mean Corpuscular Hemoglobin Concent 35 32-36 G/DL Red Cell Distribution Width 12.5 10.0-14.5 % Platelet Count 318 130-400 10^3/uL Mean Platelet Volume 9.9 7.4-10.4 FL Neutrophils (%) (Auto) 66 42-75 % Lymphocytes (%) (Auto) 24 12-44 % Monocytes (%) (Auto) 9 0-12 % Eosinophils (%) (Auto) 1 0-10 % Basophils (%) (Auto) 0 0-10 % Neutrophils # (Auto) 5.6 1.8-7.8 X 10^3 Lymphocytes # (Auto) 2.1 1.0-4.0 X 10^3 Monocytes # (Auto) 0.8 0.0-1.0 X 10^3 Eosinophils # (Auto) 0.1 0.0-0.3 10^3/uL Basophils # (Auto) 0.0 0.0-0.1 10^3/uL Sodium Level 144 135-145 MMOL/L Potassium Level 3.6 3.6-5.0 MMOL/L Chloride Level 112 H 98-107 MMOL/L Carbon Dioxide Level 23 21-32 MMOL/L Anion Gap 9 5-14 MMOL/L Blood Urea Nitrogen 14 7-18 MG/DL Creatinine 1.09 0.60-1.30 MG/DL Estimat Glomerular Filtration Rate > 60 BUN/Creatinine Ratio 13 Glucose Level 97 70-105 MG/DL Calcium Level 8.9 8.5-10.1 MG/DL Total Bilirubin 0.2 0.1-1.0 MG/DL Aspartate Amino Transf (AST/SGOT) 28 5-34 U/L Alanine Aminotransferase (ALT/SGPT) 33 0-55 U/L Alkaline Phosphatase 74 40-136 U/L Creatine Kinase MB 4.4 <6.6 NG/ML Total Protein 6.5 6.4-8.2 GM/DL Albumin 4.0 3.2-4.5 GM/DL Urine Color YELLOW Urine Clarity CLEAR Urine pH 5 5-9 Urine Specific Fenton 1.025 H 1.016-1.022 Urine Protein 1+ H NEGATIVE Urine Glucose (UA) NEGATIVE NEGATIVE Urine Ketones NEGATIVE NEGATIVE Urine Nitrite NEGATIVE NEGATIVE Urine Bilirubin NEGATIVE NEGATIVE Urine Urobilinogen NORMAL NORMAL MG/DL Urine Leukocyte Esterase NEGATIVE NEGATIVE Urine RBC (Auto) NEGATIVE NEGATIVE Urine RBC NONE /HPF Urine WBC NONE /HPF Urine Squamous Epithelial Cells RARE /HPF Urine Crystals NONE /LPF Urine Bacteria NONE /HPF Urine Casts NONE /LPF Urine Mucus NEGATIVE /LPF Urine Culture Indicated NO My Orders Orders - SEBASTIAN PALOMINO APRN Cbc With Automated Diff (09/28/17 17:46) Comprehensive Metabolic Panel (09/28/17 17:46) Creatine Kinase Mb (09/28/17 17:46) Iv Heplock-Insert (Order) (09/28/17 17:46) Ns Iv 1000 Ml (Sodium Chloride 0.9%) (09/28/17 18:00) Ua Culture If Indicated (09/28/17 17:49) Vital Signs/I&O 09/28/17 09/28/17 17:28 19:15 Temp 99.3 99.3 Pulse 84 74 Resp 20 20 B/P (MAP) 122/78 (93) 122/84 (93) Pulse Ox 96 97 O2 Delivery Room Air Room Air Blood Pressure Mean: 93 Departure Communication (Admissions) he received 1 L of fluids per EMS. Impression Primary Impression: Recurrent seizures Disposition: HOME, SELF-CARE Condition: Stable Departure-Patient Inst. Decision time for Depature: 17:58 Referrals: [facility] (PCP/Family) Primary Care Physician Patient Instructions: Seizures, Adult (DC) Add. Discharge Instructions: 1. Given the frequency with which you're having seizures, follow-up with your primary care provider to discuss adding a second medication to help control seizures. SEBASTIAN PALOMINO APRN Sep 28, 2017 17:56
[2017-09-28] MEDS ORDERED: NS IV 1000 ML 1,000 ML IV SCH (18:00)
[2017-09-28 18:11] LABS: ALANINE AMINOTRANSFERASE 33 U/L (0-55); ALKALINE PHOSPHATASE 74 U/L (40-136); BILIRUBIN,TOTAL 0.2 MG/DL (0.1-1.0); BUN/CREATININE RATIO 13; CALCIUM 8.9 MG/DL (8.5-10.1); CARBON DIOXIDE 23 MMOL/L (21-32); CHLORIDE 112 MMOL/L (98-107); CREATININE SERUM 1.09 MG/DL (0.60-1.30); GFR ESTIMATED > 60; GLUCOSE 97 MG/DL (70-105); POTASSIUM 3.6 MMOL/L (3.6-5.0); SODIUM 144 MMOL/L (135-145); TOTAL PROTEIN 6.5 GM/DL (6.4-8.2)
[2017-09-28 18:17] LABS: CREATINE KINASE MB 4.4 NG/ML (<6.6)
[2017-09-28 18:36] LABS: BILIRUBIN,URINE NEGATIVE (NEGATIVE); CLARITY,URINE CLEAR; COLOR,URINE YELLOW; GLUCOSE, URINE (UA) NEGATIVE (NEGATIVE); KETONES,URINE NEGATIVE (NEGATIVE); LEUKOCYTE ESTERASE ,URINE NEGATIVE (NEGATIVE); NITRITE,URINE NEGATIVE (NEGATIVE); PH,URINE 5 (5-9); PROTEIN,URINE 1+ (NEGATIVE); UROBILINOGEN,URINE NORMAL (NORMAL)
[2017-09-28 18:42] LABS: SQUAMOUS EPITHELIAL CELL,UR RARE /HPF
[2017-09-28 19:15] VITALS: BP 122/84
== END 2017-09-28 19:15 | disposition home or self-care (01) ==
LOC: EDUNIT# 17:24 → ER 17:25
DX: G40.909 Epilepsy, unspecified, not intractable, without status epilepticus (principal); F41.9 Anxiety disorder, unspecified; F32.9 Major depressive disorder, single episode, unspecified; G47.9 Sleep disorder, unspecified; Z87.891 Personal history of nicotine dependence; Z87.81 Personal history of (healed) traumatic fracture; Z98.890 Other specified postprocedural states; Z88.6 Allergy status to analgesic agent
CPT/HCPCS: 36415; 80053; 81000; 82553; 85025; 96360

== ENCOUNTER 2017-10-09 15:41 | Emergency (ER) | payer BC ==
[~2017-10-09] VITALS: Ht 177.8 cm; Wt 93.4 kg
--- OUTSIDE RECORDS SUMMARY | 2017-10-09 16:14 | XMS REPORT | Clinical Summary ---
Author Author [facility] Organization [facility] Address Unknown Phone Unavailable Care Team Providers Care Hydraulic Dredge Operator Name Role Phone Walt Nation MD Unavailable Unavailable Sulma Finley MOBILE PHONE SALESPERSON-BC Unavailable Cristobal Wheeler MD PCP Source Comments Some departments are not documenting in the electronic medical record. If you do not see the information that you expected, contact Release of Information in the Health Information Management department at [phone] for further assistance in locating additional records.[facility] Allergies Active Allergy Reactions Severity Noted Date [...] Noted Date Tobacco use Obesity Mood swings Nerve damage Seizures (HCC) Heartburn Immunizations Name [...]
[2017-10-09] MEDS ORDERED: NS IV 1000 ML 1,000 ML IV SCH ×2 (16:15)
[2017-10-09] MEDS ORDERED: ONDANSETRON 4 MG/2 ML (SDV) Z0FRAN IVP ONE (16:15)
--- NOTE | 2017-10-09 16:15 | ED General ---
General Stated Complaint: VOMITING;TROUBLE WITH VISION Source of Information: Patient Exam Limitations: No Limitations History of Present Illness Date Seen by Provider: Oct 09, 2017 Time Seen by Provider: 16:12 Initial Comments This 37-year-old male presents with a history of nausea vomiting and blurred vision that has precipitated his presentation to the emergency department. Symptoms started in the last 24 hours. Patient has had no associated fever, chills, photophobia, stiff neck, or lateralizing localizing neurologic complaint. Significant past medical history includes seizures. Allergies and Home Medications Allergies Coded Allergies: aspirin (Unverified Allergy, Mild, 03/03/16) PT'S SO STATES HE IS ALLERGIC TO ASPIRIN--WHEN ASKED WHAT THE REACTION IS SHE STATES HE HAS NOT ACTUALLY HAD ONE, BUT IS NOT SUPPOSED TO TAKE ASPIRIN D/T MEDICATION INTERACTION. Home Medications Fluoxetine HCl 60 Mg Tablet, 30 MG PO DAILY, (Reported) Levetiracetam 500 Mg Tablet, 1,500 MG PO BID, (Reported) Oxcarbazepine 600 Mg Tablet, 600 MG PO BID, (Reported) Patient Home Medication List Home Medication List Reviewed: Yes Review of Systems Constitutional: No chills, No fever EENTM: No hearing loss Respiratory: No cough Cardiovascular: No chest pain Gastrointestinal: No abdominal pain; nausea, vomiting Genitourinary: No dysuria, No frequency Musculoskeletal: No back pain Skin: No change in color, No rash Psychiatric/Neurological: No Symptoms Reported Hematologic/Lymphatic: No Symptoms Reported Immunological/Allergic: no symptoms reported Past Wqamwlq-Vuczud-Zrjyfc Hx Past Med/Social Hx: Reviewed Nursing Past Med/Soc Hx Patient Social History Alcohol Beverage of Choice: Whiskey Type Used: Cigarettes, Smokeless Tobacco Former Smoker, Quit: Nov 26, 2015 2nd Hand Smoke Exposure: No Recent Foreign Travel: No Contact w/Someone Who Travel: No Recent Hopitalizations: No Immunizations Up To Date Tetanus Booster (TDap): Less than 5yrs Seasonal Allergies Seasonal Allergies: No Past Medical History Surgeries: Yes Eye Surgery Respiratory: No Cardiac: No Neurological: Yes Seizure Disorder Reproductive Disorders: No Genitourinary: No Gastrointestinal: No Musculoskeletal: Yes (ARM FX) Fractures Endocrine: No Loss of Vision: Denies Hearing Impairment: Denies Cancer: No Psychosocial: Yes Sleep Difficulties, Anxiety, Depression Integumentary: No Blood Disorders: No Adverse Reaction/Blood Tranf: No Family Medical History FH: stroke 19 FATHER Physical Exam Vital Signs Vital Signs - First Documented 10/09/17 16:02 Temp 98.0 Pulse 74 Resp 15 B/P (MAP) 127/85 (99) Pulse Ox 98 O2 Delivery Room Air Capillary Refill : Height, Weight, BMI Height: 5'9.00" Weight: 204lbs. 4.0oz. 92.491986sw; 29.8 BMI Method:Stated General Appearance: No Apparent Distress, WD/WN Eyes: Bilateral Eye Normal Inspection HEENT: Normal ENT Inspection Neck: Normal Inspection Respiratory: Lungs Clear, Normal Breath Sounds Cardiovascular: Regular Rate, Rhythm Gastrointestinal: Normal Bowel Sounds, Non Tender, Soft Back: Normal Inspection Extremity: Normal Capillary Refill, Normal Inspection Neurologic/Psychiatric: Alert, Oriented x3, No Motor/Sensory Deficits, Normal Mood/Affect Skin: Normal Color, Warm/Dry Progress/Results/Core Measures Suspected Sepsis SIRS Temperature: Pulse: Respiratory Rate: Laboratory Tests 10/09/17 16:36: White Blood Count 7.4 Blood Pressure / Mean: Laboratory Tests 10/09/17 16:36: Platelet Count 318 10/09/17 16:55: Creatinine 0.96, Total Bilirubin 0.4 Results/Orders Lab Results Laboratory Tests Test 10/09/17 16:36 10/09/17 16:55 Range/Units White Blood Count 7.4 4.3-11.0 10^3/uL Red Blood Count 4.26 L 4.35-5.85 10^6/uL Hemoglobin 14.0 13.3-17.7 G/DL Hematocrit 40 40-54 % Mean Corpuscular Volume 93 80-99 FL Mean Corpuscular Hemoglobin 33 25-34 PG Mean Corpuscular Hemoglobin Concent 35 32-36 G/DL Red Cell Distribution Width 12.3 10.0-14.5 % Platelet Count 318 130-400 10^3/uL Mean Platelet Volume 10.2 7.4-10.4 FL Neutrophils (%) (Auto) 74 42-75 % Lymphocytes (%) (Auto) 19 12-44 % Monocytes (%) (Auto) 7 0-12 % Eosinophils (%) (Auto) 0 0-10 % Basophils (%) (Auto) 0 0-10 % Neutrophils # (Auto) 5.5 1.8-7.8 X 10^3 Lymphocytes # (Auto) 1.4 1.0-4.0 X 10^3 Monocytes # (Auto) 0.5 0.0-1.0 X 10^3 Eosinophils # (Auto) 0.0 0.0-0.3 10^3/uL Basophils # (Auto) 0.0 0.0-0.1 10^3/uL Sodium Level 141 135-145 MMOL/L Potassium Level 3.7 3.6-5.0 MMOL/L Chloride Level 108 H 98-107 MMOL/L Carbon Dioxide Level 25 21-32 MMOL/L Anion Gap 8 5-14 MMOL/L Blood Urea Nitrogen 15 7-18 MG/DL Creatinine 0.96 0.60-1.30 MG/DL Estimat Glomerular Filtration Rate > 60 BUN/Creatinine Ratio 16 Glucose Level 104 70-105 MG/DL Calcium Level 9.2 8.5-10.1 MG/DL Total Bilirubin 0.4 0.1-1.0 MG/DL Aspartate Amino Transf (AST/SGOT) 16 5-34 U/L Alanine Aminotransferase (ALT/SGPT) 15 0-55 U/L Alkaline Phosphatase 76 40-136 U/L Total Creatine Kinase 123 30-200 U/L Total Protein 7.0 6.4-8.2 GM/DL Albumin 4.3 3.2-4.5 GM/DL My Orders Orders - LNOG CHARLES MD Ct Head Wo (10/09/17 16:11) Ns Iv 1000 Ml (Sodium Chloride 0.9%) (10/09/17 16:15) Ondansetron Injection (Zofran Injectio (10/09/17 16:15) Medications Given in ED Current Medications Medications Dose Ordered Sig/Susanne Route Start Time Stop Time Status Last Admin Dose Admin Ondansetron HCl 4 mg ONCE ONCE IVP 10/09/17 16:15 10/09/17 16:16 DC 10/09/17 16:54 4 MG Vital Signs/I&O 10/09/17 16:02 Temp 98.0 Pulse 74 Resp 15 B/P (MAP) 127/85 (99) Pulse Ox 98 O2 Delivery Room Air Capillary Refill : Progress Note : Time: 17:[address] of the head was unremarkable. Patient's laboratory evaluation was similarly benign. Patient received a liter of normal saline emergency department. At the completion of the patient's evaluation he felt symptomatically improved. He has vision was also improving. I recommended that he rest tonight and follow closely with his doctor tomorrow. We've made a copy of the patient's CT of his head for him to take with him to his appointment tomorrow with his doctor. I asked that he call or return if any problems or questions. Departure Impression Primary Impression: Vomiting Qualified Codes: R11.2 - Nausea with vomiting, unspecified Disposition: HOME, SELF-CARE Condition: Improved Departure-Patient Inst. Decision time for Depature: 17:48 Referrals: NO,LOCAL PHYSICIAN (PCP) Primary Care Physician Patient Instructions: Nausea and Vomiting, Adult Add. Discharge Instructions: Follow-up here doctor tomorrow. Rest at home tonight. Return if any problems or questions. LONG CHARLES MD Oct 09, 2017 16:15
--- OUTSIDE RECORDS SUMMARY | 2017-10-09 16:15 | XMS REPORT ---
Author Author BOBBI GUZMAN Organization [facility] Address [address] [place] [address] Care Team Providers Care Churn Driller Helper Name Role Phone BOBBI GUZMAN Unavailable PROBLEMS Type Condition ICD9-CM Code PKR17-CO Code Onset Dates Condition Status SNOMED Code Problem Unspecified 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 of intractable epilepsy G40.909 Active 60029462 Problem Depressive disorder, not elsewhere classified F32.9 Active 09994913 Problem Drug-induced erectile dysfunction N52.2 Active 126188248 Problem Insomnia, unspecified type G47.00 Active 371791375 Problem History of attempted suicide Z91.5 Active 018308954 Problem Viral warts, unspecified 078.10 Active 81287544 Problem Seizure R56.9 Active 58582138 Problem Depression F32.9 Active 09724264 ALLERGIES No Information ENCOUNTERS Encounter Location Date Diagnosis [facility] [address] [id number] [place] [address] July [facility] [address] [id number] [place] [address] Jun [facility] [address] [id number] [place] [address] Jun Depressive disorder, not elsewhere classified F32.9 and Seizure R56.9 [facility] [place] [address] [id number] [place] [address] Jun Seizure R56.9 [facility] [place] [address] [id number] [place] [address] Jun Depressive disorder, not elsewhere classified F32.9 and Seizure R56.9 [facility] [place] [address] [id number] [place] [address] Jun Unspecified 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 of intractable epilepsy G40.909 [facility] [address] [id number] [place] [address] Jun Depressive disorder, not elsewhere classified F32.9 ; Seizure R56.9 and Insomnia, unspecified type G47.00 [facility] [place] [address] [id number] [place] [address] May [facility] [address] [id number] [place] [address] May [facility] [address] [id number] [place] [address] Mar [facility] [address] [id number] [place] [address] Feb Contusion of left elbow, subsequent encounter S50.02XD [facility] [address] [id number] [place] [address] Feb Contusion of left elbow, subsequent encounter S50.02XD [facility] [address] [id number] [place] [address] Feb Contusion of left elbow, subsequent encounter S50.02XD [facility] [address] [id number] [place] [address] Dec Insomnia, unspecified type G47.00 ; Seizure R56.9 and Acute nasopharyngitis J00 [facility] [address] [id number] [place] [address] Nov Insomnia, unspecified type G47.00 [facility] [address] [id number] [place] [address] Sep [facility] [address] [id number] [place] [address] Sep Depression F32.9 and Insomnia, unspecified type G47.00 [facility] [address] [id number] [place] [address] Aug [facility] [address] [id number] [place] [id number] Aug, Insomnia, unspecified type G47.00 [facility] [address] [id number] [place] [address] July Insomnia, unspecified type G47.00 [facility] [address] [id number] [place] [address] July [facility] [address] [id number] [place] [address] Jun Acute nasopharyngitis J00 [facility] [address] [id number] [place] [address] May Drug-induced erectile dysfunction N52.2 ; Seizure R56.9 and Depressive disorder, not elsewhere classified F32.9 [facility] [address] [id number] [place] [address] May [facility] [address] [id number] [place] [address] May Insomnia, unspecified type G47.00 [facility] [place] [address] [id number] [place] [address] May Drug-induced erectile dysfunction N52.2 [facility] [address] [facility] [id number] [place] [address] Feb, [facility] [address] [id number] [place] [address] Jan [facility] [address] [id number] [place] [address] Dec [facility] [address] [id number] [place] [address] Nov [facility] [address] [id number] [place] [address] Nov [facility] [address] [id number] [place] [address] Nov [facility] [address] [id number] [place] [address] Nov Seizure R56.9 ; Insomnia, unspecified type G47.00 and Depression F32.9 [facility] [address] [id number] [place] [address] Oct [facility] [address] [id number] [place] [address] Oct [facility] [address] [id number] [place] [address] Oct Depressive disorder, not elsewhere classified F32.9 ; Unspecified 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 of intractable epilepsy G40.909 and Insomnia, unspecified type G47.00 [facility] [address] [id number] [place] [address] Sep Other insomnia G47.09 [facility] [place] [address] [place] [address] Sep, [facility] [address] [id number] [place] [address] July Depression F32.9 and Seizure R56.9 [facility] [address] [id number] [place] [address] Jun Depression F32.9 ; History of attempted suicide Z91.5 and Unspecified 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 of intractable epilepsy 345.90 [facility] [address] [id number] [place] [address] May Depression F32.9 and History of attempted suicide Z91.5 [facility] [address] [id number] [address] May, [facility] [address] [id number] [place] [address] Mar Seizure disorder G40.909 ; Depression F32.9 and Suicide attempt by drug ingestion T50.902A [facility] [address]00565100[place], [place] [address] Jun, [facility] [id number] [place] [address] Jun, [facility] [address]00565100[place], [place] [address] Oct, [facility] [id number] [place] [address] Oct, [facility] [address] [facility] [id number] [address] Jun, [facility] [address] [id number], [place] [address] Jun, [facility] [address] [id number] [address] Jun, [facility] [place] [facility] [address] [id number], [place] [address] Jun, [facility] [address] [facility] [id number] [place] [address] Mar, [facility] [address] [id number], [place] [address] Mar, [facility] [address] [id number] [id number] Mar, [facility] [address] [id number], [place] [address] Mar, [facility] [address] [id number] [address] Mar, [facility] [address] [facility] [id number], [place] [address] Mar, [facility] [address] [id number][place] [address] Feb, [facility] [place] [facility] [address] [id number], [place] [address] Feb, [facility] [place] [facility] [address] [id number], [place] [address] Feb, [facility] [place] [facility] [address] [facility] [id number], [place] [address] Feb, [facility] [place] [facility] [address] [facility] [id number], [place] [address] Feb, [facility] [place] [facility] [address] [id number], [place] [address] Feb, [facility] [address] [id number][place] [address] Feb, [facility] [address] [id number][place] [address] Feb, [facility] [address] [id number], [place] [address] Jan, [facility] [address] [id number], [place] [address] Jan, [facility] [address] [id number] [address] Jan, [facility] [address] [facility] [id number], [place] [address] Jan, [facility] [id number] [place] [id number] Jan, [facility] [address] [id number], [place] [address] Jan, [facility] [address] [facility] [id number], [place] [address] Jan, [facility] [address] [id number][place] [address] Jan, [facility] [address] [facility] [id number], [place] [address] Jan, [facility] [address] [id number], [place] [address] Jan, [facility] [address] [facility] [id number][place] [address] Jan, [facility] [id number][place] [address] Dec, [facility] [address] [facility] [id number][place] [address] Dec, IMMUNIZATIONS No Known Immunizations SOCIAL HISTORY Never Assessed REASON FOR VISIT med refill PLAN OF CARE VITAL SIGNS MEDICATIONS Medication Instructions Dosage Frequency Start Date End Date Duration Status Mirtazapine 15 mg Orally Once a day 1 tablet before bedtime in the evening 24h Jun, 07 days Active RESULTS No Results PROCEDURES No Known procedures INSTRUCTIONS MEDICATIONS ADMINISTERED No Known Medications MEDICAL (GENERAL) HISTORY Type Description Date Medical History seizures Medical History suicidal attempt x 7 Surgical History Rt eye surgery Hospitalization History seizures Hospitalization History Suicidal attempt 04/17/2015 Hospitalization History Generalized Tonic Clonic Seizure-[facility] 03/02/2015
--- OUTSIDE RECORDS SUMMARY | 2017-10-09 16:17 | XMS REPORT ---
Author Author BOBBI GUZMAN Organization [employer] Address [address] [place] [address] Care Team Providers Care Vp Construction Name Role Phone BOBBI GUZMAN Unavailable PROBLEMS Type Condition ICD9-CM Code IEQ02-ML Code Onset Dates Condition Status SNOMED Code Problem Unspecified 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 of intractable epilepsy G40.909 Active 55348779 Problem Depressive disorder, not elsewhere classified F32.9 Active 37939745 Problem Drug-induced erectile dysfunction N52.2 Active 820913980 Problem Insomnia, unspecified type G47.00 Active 848992632 Problem History of attempted suicide Z91.5 Active 752561935 Problem Viral warts, unspecified 078.10 Active 75365466 Problem Seizure R56.9 Active 19778362 Problem Depression F32.9 Active 45926744 ALLERGIES No Information ENCOUNTERS Encounter Location Date Diagnosis [facility] [place] [address] [id number] [place] [address] May [facility] [address] [id number] [place] [address] May [facility] [place] [address] [id number] [place] [address] Mar [facility] [address] [id number] [place] [address] Feb Contusion of left elbow, subsequent encounter S50.02XD [facility] [place] [address] [id number] [place] [address] Feb Contusion of left elbow, subsequent encounter S50.02XD [facility] [place] [address] [id number] [place] [address] Feb Contusion of left elbow, subsequent encounter S50.02XD [facility] [place] [address] [id number] [place] [address] Dec Insomnia, unspecified type G47.00 ; Seizure R56.9 and Acute nasopharyngitis J00 [facility] [place] [address] [id number] [place] [address] Nov Insomnia, unspecified type G47.00 [facility] [place] [address] [id number] [place] [address] Sep [facility] [place] [address] [id number] [place] [address] Sep Depression F32.9 and Insomnia, unspecified type G47.00 [facility] [place] [address] [id number] [place] [address] Aug [facility] [address] [facility] [id number] [place] [address] Aug, Insomnia, unspecified type G47.00 [facility] [place] [address] [id number] [place] [address] July Insomnia, unspecified type G47.00 [facility] [place] [address] [id number] [place] [address] July [facility] [place] [address] [id number] [place] [address] Jun Acute [facility]itis [facility]00 [facility] [place] [address] [id number] [place] [address] May Drug-induced erectile dysfunction N52.2 ; Seizure R56.9 and Depressive disorder, not elsewhere classified F32.9 [facility] [place] [address] [id number] [place] [address] May [facility] [place] [address] [id number] [place] [address] May Insomnia, unspecified type G47.00 [facility] [place] [address] [id number] [place] [address] May Drug-induced erectile dysfunction N52.2 [facility] [address] [facility] [id number] [place] [address] Feb, [facility] [place] [address] [id number] [place] [address] Jan [facility] [place] [address] [id number] [place] [address] Dec [facility] [place] [address] [id number] [place] [address] Nov [facility] [place] [address] [id number] [place] [address] Nov [facility] [place] [address] [id number] [place] [address] Nov [facility] [place] [address] [id number] [place] [address] Nov Seizure R56.9 ; Insomnia, unspecified type G47.00 and Depression F32.9 [facility] [place] [address] [id number] [place] [address] Oct [facility] [place] [address] [id number] [place] [address] Oct [facility] [place] [address] [id number] [place] [address] Oct Depressive disorder, not elsewhere classified F32.9 ; Unspecified 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 of intractable epilepsy G40.909 and Insomnia, unspecified type G47.00 [facility] [place] [address] [id number] [place] [address] Sep Other insomnia G47.09 [facility] [place] [address] [place] [address] Sep, [facility] [place] [address] [id number] [place] [address] July Depression F32.9 and Seizure R56.9 [facility] [place] [address] [id number] [place] [address] Jun Depression F32.9 ; History of attempted suicide Z91.5 and Unspecified 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 of intractable epilepsy 345.90 [facility] [place] [address] [id number] [place] [address] May Depression F32.9 and History of attempted suicide Z91.5 [facility] [address] [id number], [place] [address] May, [facility] [place] TAMELAE [id number] [place] [address] Mar Seizure disorder G40.909 ; Depression F32.9 and Suicide attempt by drug ingestion T50.902A [facility] [address] [facility] [id number] [address] Jun, [facility] [address] [id number], [place] [address] Jun, [facility] [address] [id number], [place] [address] Oct, [facility] [address]00565100[place], [place] [address] Oct, [facility] [address]00565100[place], [place] [address] Jun, [facility] [address] [id number], [place] [address] Jun, [facility] [address]00565[place] [address] Jun, [facility] [address] [id number], [place] [address] Jun, [facility] [address] [id number], [place] [address] Mar, [facility] [address] [facility] [id number][place] [address] Mar, [facility] [id number][place] [id number] Mar, [facility] [address] [id number], [place] [address] Mar, [facility] [id number], [place] [address] Mar, [facility] [address] [id number], [place] [address] Mar, [facility] [id number], [place] [id number] Feb, [facility] [address] [facility] [id number], [place] [address] Feb, [facility] [address] [id number], [place] [address] Feb, [facility] [address] [facility] [id number], [place] [address] Feb, [facility] [address] [facility] [id number], [place] [address] Feb, [facility] [address] [id number], [place] [address] Feb, [facility] [address] [facility] [id number][place] [address] Feb, [facility] [address] [id number] [address] Feb, [facility] [address] [facility] [id number], [place] [address] Jan, [facility] [address] [facility] [id number], [place] [address] Jan, [facility] [address] [facility] [id number], [place] [address] Jan, [facility] [address] [facility] [id number][place] [address] Jan, [facility] [address] [id number][place] [address] Jan, [facility] [address] [id number], [place] [address] Jan, [facility] [address] [facility] [id number], [place] [address] Jan, [facility] [address] [id number][place] [address] Jan, [facility] [address] [id number], [place] [address] Jan, [facility] [address] [id number], [place] [address] Jan, [facility] [address] [id number], [place] [address] Jan, [facility] [address] [id number] [id number] Dec, [facility] [address] [id number], [place] [address] Dec, IMMUNIZATIONS No Known Immunizations SOCIAL HISTORY Never Assessed REASON FOR VISIT Med refills PLAN OF CARE VITAL SIGNS MEDICATIONS Unknown Medications RESULTS No Results PROCEDURES No Known procedures INSTRUCTIONS MEDICATIONS ADMINISTERED No Known Medications MEDICAL (GENERAL) HISTORY Type Description Date Medical History seizures Medical History suicidal attempt x 7 Surgical History Rt eye surgery Hospitalization History seizures Hospitalization History Suicidal attempt 04/17/2015 Hospitalization History Generalized Tonic Clonic Seizure-[facility] 03/02/2015
--- OUTSIDE RECORDS SUMMARY | 2017-10-09 16:17 | XMS REPORT ---
Author Author BOBBI GUZMAN Organization [facility] Address [address] [place] [address] Care Team Providers Care Stamp Classifier Name Role Phone BOBBI GUZMAN Unavailable PROBLEMS Type Condition ICD9-CM Code TAV99-DP Code Onset Dates Condition Status SNOMED Code Problem Unspecified 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 of intractable epilepsy G40.909 Active 85994146 Problem Depressive disorder, not elsewhere classified F32.9 Active 13154153 Problem Drug-induced erectile dysfunction N52.2 Active 146545955 Problem Insomnia, unspecified type G47.00 Active 531298101 Problem History of attempted suicide Z91.5 Active 240364643 Problem Viral warts, unspecified 078.10 Active 39493013 Problem Seizure R56.9 Active 29742197 Problem Depression F32.9 Active 99564036 ALLERGIES No Information ENCOUNTERS Encounter Location Date Diagnosis [facility] [place] [address] [id number] [place] [address] Aug Depressive disorder, not elsewhere classified F32.9 and Irritant contact dermatitis due to other agents L24.89 [facility] [address] [id number] [place] [address] Jun [facility] [place] [address] [id number] [place] [address] Jun Depressive disorder, not elsewhere classified F32.9 and Seizure R56.9 [facility] [place] [address] [id number] [place] [address] Jun Seizure R56.9 [facility] [place] [address] [id number] [place] [address] Jun Depressive disorder, not elsewhere classified F32.9 and Seizure R56.9 [facility] [address] [id number] [place] [address] Jun Unspecified 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 of intractable epilepsy G40.909 [facility] [place] [address] [id number] [place] [address] Jun Depressive disorder, not elsewhere classified F32.9 ; Seizure R56.9 and Insomnia, unspecified type G47.00 [facility] [place] [address] [id number] [place] [address] May [facility] [place] [address] [id number] [place] [address] May [facility] [place] [address] [id number] [place] [address] Mar [facility] [place] [address] [id number] [place] [address] Feb Contusion of left elbow, subsequent encounter S50.02XD [facility] [place] [address] [id number] [place] [address] Feb Contusion of left elbow, subsequent encounter S50.02XD [facility] [place] [address] [id number] [place] [address] Feb Contusion of left elbow, subsequent encounter S50.02XD [facility] [place] [address] [id number] [place] [address] Dec Insomnia, unspecified type G47.00 ; Seizure R56.9 and Acute nasopharyngitis J00 [facility] [place] [address] [id number] [place] [address] Nov Insomnia, unspecified type G47.00 [facility] [place] [address] [id number] [place] [address] Sep [facility] [place] [address] [id number] [place] [address] Sep Depression F32.9 and Insomnia, unspecified type G47.00 [facility] [place] [address] [id number] [place] [address] Aug [facility] [address] [id number] [place] [address] Aug, Insomnia, unspecified type G47.00 [facility] [place] [address] [id number] [place] [address] July Insomnia, unspecified type G47.00 [facility] [place] [address] [id number] [place] [address] July [facility] [place] [address] [id number] [place] [address] Jun Acute nasopharyngitis J00 [facility] [place] [address] [id number] [place] [address] May Drug-induced erectile dysfunction N52.2 ; Seizure R56.9 and Depressive disorder, not elsewhere classified F32.9 [facility] [place] [address] [id number] [place] [address] May [facility] [place] [address] [id number] [place] [address] May Insomnia, unspecified type G47.00 [facility] [place] [address] [id number] [place] [address] May Drug-induced erectile dysfunction N52.2 [facility] [address] [facility] [id number] [place] [address] Feb, [facility] [place] [address] [id number] [place] [address] Jan [facility] [place] [address] [id number] [place] [address] Dec [facility] [place] [address] [id number] [place] [address] Nov [facility] [place] [address] [id number] [place] [address] Nov [facility] [place] [address] [id number] [place] [address] Nov [facility] [place] [address] [id number] [place] [address] Nov Seizure R56.9 ; Insomnia, unspecified type G47.00 and Depression F32.9 [facility] [place] [address] [id number] [place] [address] Oct [facility] [place] [address] [id number] [place] [address] Oct [facility] [place] [address] [id number] [place] [address] Oct Depressive disorder, not elsewhere classified F32.9 ; Unspecified 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 of intractable epilepsy G40.909 and Insomnia, unspecified type G47.00 [facility] [place] [address] [id number] [place] [address] Sep Other insomnia G47.09 [facility] [place] [address] [place] [address] Sep, [facility] [place] [address] [id number] [place] [address] July Depression F32.9 and Seizure R56.9 [facility] [place] [address] [id number] [place] [address] Jun Depression F32.9 ; History of attempted suicide Z91.5 and Unspecified 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 of intractable epilepsy 345.90 [facility] [place] [address] [id number] [place] [address] May Depression F32.9 and History of attempted suicide Z91.5 [facility] [address] [id number], [place] [address] May, [facility] [place] [address] [id number] [place] [address] Mar Seizure disorder G40.909 ; Depression F32.9 and Suicide attempt by drug ingestion T50.902A [facility] [address]00565100[place], [place] [address] Jun, [facility] [address] [id number], [place] [address] Jun, [facility] [address] [id number], [place] [address] Oct, [facility] [address] [id number], [place] [address] Oct, [facility] [address] [facility] [id number], [place] [address] Jun, [facility] [place] [facility] [address] [facility] [id number], [place] [address] Jun, [facility] [id number], [place] [address] Jun, [facility] [address] [id number] [place] [address] Jun, [facility] [address] [id number], [place] [address] Mar, [facility] [address] [id number], [place] [address] Mar, [place] [id number], [place] [address] Mar, [facility] [address] [facility] [id number], [place] [address] Mar, [facility] [id number], [place] [address] Mar, [facility] [address] [facility] [id number], [place] [address] Mar, [address] [id number], [place] [address] Feb, [facility] [place] [facility] [address] [id number], [place] [address] Feb, [facility] [place] [facility] [address] [id number], [place] [address] Feb, [facility] [place] [facility] [address] [facility] [id number], [place] [address] Feb, [facility] [place] [facility] [address] [id number], [place] [address] Feb, [facility] [address] [facility] [id number], [place] [address] Feb, [facility] [address] [facility] [id number], [place] [address] Feb, [facility] [address] [id number], [place] [address] Feb, [facility] [address] [facility] [id number], [place] [address] Jan, [facility] [address] [facility] [id number], [place] [address] Jan, [facility] [address] [facility] [id number], [place] [address] Jan, [facility] [address] [facility] [id number], [place] [address] Jan, [facility] [address] [id number], [place] [id number] Jan, [facility] [address] [facility] [id number], [place] [address] Jan, [facility] [address] [facility] [id number], [place] [address] Jan, [facility] [address] [id number], [place] [id number] Jan, [facility] [address] [facility] [id number], [place] [address] Jan, [facility] [address] [facility] [id number], [place] [address] Jan, [facility] [address] [facility] [id number], [place] [address] Jan, [facility] [id number], [place] [address] Dec, [facility] [address] [facility] [id number] [place] [address] Dec, IMMUNIZATIONS No Known Immunizations SOCIAL HISTORY Never Assessed REASON FOR VISIT Needing Work Note PLAN OF CARE VITAL SIGNS MEDICATIONS No Known Medications RESULTS No Results PROCEDURES No Known procedures INSTRUCTIONS MEDICATIONS ADMINISTERED No Known Medications MEDICAL (GENERAL) HISTORY Type Description Date Medical History seizures Medical History suicidal attempt x 7 Surgical History Rt eye surgery Hospitalization History seizures Hospitalization History Suicidal attempt 04/17/2015 Hospitalization History Generalized Tonic Clonic Seizure-[facility] 03/02/2015
--- OUTSIDE RECORDS SUMMARY | 2017-10-09 16:17 | XMS REPORT ---
Author Author JOSEP PA [facility] Address [address] [place] [address] Care Team Providers Care Electrical And Radio Mock Up Mechanic Name Role Phone JOSEP PA Unavailable PROBLEMS Type Condition ICD9-CM Code [id number] Code Onset Dates Condition Status SNOMED Code Problem Unspecified 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 of intractable epilepsy G40.909 Active 12939644 Problem Depressive disorder, not elsewhere classified F32.9 Active 90736460 Problem Drug-induced erectile dysfunction N52.2 Active 878954282 Problem Insomnia, unspecified type G47.00 Active 089307287 Problem History of attempted suicide Z91.5 Active 864462952 Problem Viral warts, unspecified 078.10 Active 92026485 Problem Seizure R56.9 Active 94516529 Problem Depression F32.9 Active 14270512 ALLERGIES Substance Reaction Event Type Date Status Trazodone HCl Seizures Drug Allergy Feb, Active Asa Seizure Drug Allergy Feb, Active ENCOUNTERS Encounter Location Date Diagnosis [facility] [address] [id number] [place] [address] Aug Depressive disorder, not elsewhere classified F32.9 and Irritant contact dermatitis due to other agents L24.89 [facility] [address] [id number] [place] [address] Jun [facility] [address] [id number] [place] [address] Jun Depressive disorder, not elsewhere classified F32.9 and Seizure R56.9 [facility] [address] [id number] [place] [address] Jun Seizure R56.9 [facility] [address] [id number] [place] [address] Jun Depressive disorder, not elsewhere classified F32.9 and Seizure R56.9 [facility] [address] [id number] [place] [address] Jun Unspecified 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 of intractable epilepsy G40.909 [facility] [place] [address] [id number] [place] [address] Jun Depressive disorder, not elsewhere classified F32.9 ; Seizure R56.9 and Insomnia, unspecified type G47.00 [facility] [place] [address] [id number] [place] [address] May [facility] [place] [address] [id number] [place] [address] May [facility] [place] [address] [id number] [place] [address] Mar [facility] [place] [address] [id number] [place] [address] Feb Contusion of left elbow, subsequent encounter S50.02XD [facility] [place] [address] [id number] [place] [address] Feb Contusion of left elbow, subsequent encounter S50.02XD [facility] [place] [address] [id number] [place] [address] Feb Contusion of left elbow, subsequent encounter S50.02XD [facility] [place] [address] [id number] [place] [address] Dec Insomnia, unspecified type G47.00 ; Seizure R56.9 and Acute nasopharyngitis J00 [facility] [place] [address] [id number] [place] [address] Nov Insomnia, unspecified type G47.00 [facility] [place] [address] [id number] [place] [address] Sep [facility] [place] [address] [id number] [place] [address] Sep Depression F32.9 and Insomnia, unspecified type G47.00 [facility] [place] [address] [id number] [place] [address] Aug [facility] [address] [id number] [place] [id number] Aug, Insomnia, unspecified type G47.00 [facility] [place] [address] [id number] [place] [address] July Insomnia, unspecified type G47.00 [facility] [place] [address] [id number] [place] [address] July [facility] [place] [address] [id number] [place] [address] Jun Acute nasopharyngitis J00 [facility] [place] [address] [id number] [place] [address] May Drug-induced erectile dysfunction N52.2 ; Seizure R56.9 and Depressive disorder, not elsewhere classified F32.9 [facility] [place] [address] [id number] [place] [address] May [facility] [place] [address] [id number] [place] [address] May Insomnia, unspecified type G47.00 [facility] [place] [address] [id number] [place] [address] May Drug-induced erectile dysfunction N52.2 [facility] [address] [facility] [id number] [place] [address] Feb, [facility] [place] [address] [id number] [place] [address] Jan [facility] [place] [address] [id number] [place] [address] Dec [facility] [place] [address] [id number] [place] [address] Nov [facility] [place] [address] [id number] [place] [address] Nov [facility] [place] [address] [id number] [place] [address] Nov [facility] [place] [address] [id number] [place] [address] Nov Seizure R56.9 ; Insomnia, unspecified type G47.00 and Depression F32.9 [facility] [place] [address] [id number] [place] [address] Oct [facility] [place] [address] [id number] [place] [address] Oct [facility] [place] [address] [id number] [place] [address] Oct Depressive disorder, not elsewhere classified F32.9 ; Unspecified 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 of intractable epilepsy G40.909 and Insomnia, unspecified type G47.00 [facility] [place] [address] [id number] [place] [address] Sep Other insomnia G47.09 [facility] [place] [address] [place] [address] Sep, [facility] [place] [address] [id number] [place] [address] July Depression F32.9 and Seizure R56.9 [facility] [place] [address] [id number] [place] [address] Jun Depression F32.9 ; History of attempted suicide Z91.5 and Unspecified 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 of intractable epilepsy 345.90 [facility] [place] [address] [id number] [place] [address] May Depression F32.9 and History of attempted suicide Z91.5 [address]005[address]100[place] [address] May, [facility] [place] [address] [id number] [place] [address] Mar Seizure disorder G40.909 ; Depression F32.9 and Suicide attempt by drug ingestion T50.902A [facility] [address]00565100[place] [address] Jun, [facility] [id number] [place] [address] Jun, [facility] [address] [id number] [address] Oct, [facility] [address] [id number] [place] [address] Oct, [facility] [place] [facility] [address] [facility] [id number] [place] [address] Jun, [facility] [address] [facility] [id number] [place] [address] Jun, [facility] [id number] [place] [address] Jun, [facility] [address] [id number] [place] Jun, [facility] [place] [facility] [address] [id number] [place] [address] Mar, [facility] [address] [id number] [place] [address] Mar, [facility] [address] [id number] [place] [address] Mar, [facility] [address] [id number] [place] [address] Mar, [facility] [address] [id number] [place] [address] Mar, [facility] [address] [id number] [place] [address] Mar, [facility] [address] [id number] [place] [address] Feb, [facility] [place] [facility] [address] [id number] [place] [address] Feb, [facility] [place] [facility] [address] [id number] [place] [address] Feb, [facility] [place] [facility] [address] [id number] [place] [address] Feb, [facility] [place] [facility] [address] [id number] [place] [address] Feb, [facility] [address] [facility] [id number] [place] [address] Feb, [facility] [address] [facility] [id number] [place] [address] Feb, [facility] [address] [facility] [id number] [place] [address] Feb, [facility] [address] [id number] [place] [address] Jan, [facility] [address] [id number] [place] [address] Jan, [facility] [address] [facility] [id number] [place] [address] Jan, [facility] [address] [id number] [place] [address] Jan, [facility] [address] [id number] [place] [address] Jan, [facility] [address] [facility] [id number] [place] [address] Jan, [facility] [address] [facility] [id number] [place] [address] Jan, [facility] [address] [facility] [id number] [place] [address] Jan, [facility] [address] [facility] [id number] [place] [address] Jan, [facility] [address] [facility] [id number] [place] [address] Jan, [facility] [address] [facility] [id number] [place] [address] Jan, [facility] [address] [id number] [place] [address] Dec, [facility] [address] [facility] [id number] [place] [address] Dec, IMMUNIZATIONS No Known Immunizations SOCIAL HISTORY Never Assessed REASON FOR VISIT ER follow up. Slip and fall injury to L arm. DOA 03-12-17. swelling present in extremity. RIN jaramillo PLAN OF CARE Activity Details Follow Up 2 - 3 Days,Gwen Reason:Left arm re-eval VITAL SIGNS Height 67.5 in 2017-03-13 Weight 219.4 lbs 2017-03-13 Temperature 97.9 degrees Fahrenheit 2017-03-13 Heart Rate 81 bpm 2017-03-13 Respiratory Rate 18 2017-03-13 BMI 33.85 kg/m2 2017-03-13 Blood pressure systolic 105 mmHg 2017-03-13 Blood pressure diastolic 68 mmHg 2017-03-13 MEDICATIONS Medication Instructions Dosage Frequency Start Date End Date Duration Status Depakote 500 mg take 2 tablets (1,000 mg) by oral route 2 times per day Mar, Not-Taking Ambien 5 mg Orally Once a day at bedtime 1 tablet at bedtime May, 28 days Not-Taking Ambien 5 mg Orally PRN 1 tablet at bedtime Sep, Not-Taking Clorazepate Dipotassium 7.5 MG Orally Twice a day 1 tablet 12h Not -Taking Mirtazapine 15 mg Orally Once a day 1 tablet before bedtime in the evening 24h Jun, 07 days Not-Taking Vicodin 5-300 MG Orally every 6 hrs 1 tablet as needed 6h Active Fluoxetine HCl 20 MG TAKE 1 TABLET BY MOUTH ONCE DAILY 30 Active Oxcarbazepine 600 MG TAKE 1 TABLET BY MOUTH TWICE DAILY 30 Active Levetiracetam 500 MG TAKE 3 TABLETS BY MOUTH TWICE DAILY 30 Active RESULTS No Results PROCEDURES No Known procedures INSTRUCTIONS MEDICATIONS ADMINISTERED No Known Medications MEDICAL (GENERAL) HISTORY Type Description Date Medical History seizures Medical History suicidal attempt x 7 Surgical History Rt eye surgery Hospitalization History seizures Hospitalization History Suicidal attempt 04/17/2015 Hospitalization History Generalized Tonic Clonic Seizure-VC 03/02/2015
--- OUTSIDE RECORDS SUMMARY | 2017-10-09 16:18 | XMS REPORT ---
Author Author BOBBI GUZMAN [facility] Address [address] [place] [address] Care Team Providers Care Cuff Runner Name Role Phone BOBBI GUZMAN Unavailable PROBLEMS Type Condition ICD9-CM Code [id number] Code Onset Dates Condition Status SNOMED Code Problem Unspecified 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 of intractable epilepsy G40.909 Active 36709307 Problem Depressive disorder, not elsewhere classified F32.9 Active 43720730 Problem Drug-induced erectile dysfunction N52.2 Active 001256911 Problem Insomnia, unspecified type G47.00 Active 852920483 Problem History of attempted suicide Z91.5 Active 219553010 Problem Viral warts, unspecified 078.10 Active 48679552 Problem Seizure R56.9 Active 72978328 Problem Depression F32.9 Active 99580335 ALLERGIES Substance Reaction Event Type Date Status Trazodone HCl Seizures Drug Allergy Feb, Active Asa Seizure Drug Allergy Feb, Active ENCOUNTERS Encounter Location Date Diagnosis [facility] [address] [id number] [place] [address] Aug Depressive disorder, not elsewhere classified F32.9 and Irritant contact dermatitis due to other agents L24.89 [facility] [address] [id number] [place] [address] Jun [facility] [address] [id number] [place] [address] Jun Depressive disorder, not elsewhere classified F32.9 and Seizure R56.9 [facility] [address] [id number] [place] [address] Jun Seizure R56.9 [facility] [address] [id number] [place] [address] Jun Depressive disorder, not elsewhere classified F32.9 and Seizure R56.9 [facility] [place] [address] [id number] [place] [address] Jun Unspecified 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 of intractable epilepsy G40.909 [facility] [place] [address] [id number] [place] [address] Jun Depressive disorder, not elsewhere classified F32.9 ; Seizure R56.9 and Insomnia, unspecified type G47.00 [facility] [place] [address] [id number] [place] [address] May [facility] [place] [address] [id number] [place] [address] May [facility] [place] [address] [id number] [place] [address] Mar [facility] [place] [address] [id number] [place] [address] Feb Contusion of left elbow, subsequent encounter S50.02XD [facility] [place] [address] [id number] [place] [address] Feb Contusion of left elbow, subsequent encounter S50.02XD [facility] [place] [address] [id number] [place] [address] Feb Contusion of left elbow, subsequent encounter S50.02XD [facility] [place] [address] [id number] [place] [address] Dec Insomnia, unspecified type G47.00 ; Seizure R56.9 and Acute nasopharyngitis J00 [facility] [place] [address] [id number] [place] [address] Nov Insomnia, unspecified type G47.00 [facility] [place] [address] [id number] [place] [address] Sep [facility] [place] [address] [id number] [place] [address] Sep Depression F32.9 and Insomnia, unspecified type G47.00 [facility] [place] [address] [id number] [place] [address] Aug [facility] [address] [facility] [id number] [place] [address] Aug, Insomnia, unspecified type G47.00 [facility] [place] [address] [id number] [place] [address] July Insomnia, unspecified type G47.00 [facility] [place] [address] [id number] [place] [address] July [facility] [place] [address] [id number] [place] [address] Jun Acute nasopharyngitis J00 [facility] [place] [address] [id number] [place] [address] May Drug-induced erectile dysfunction N52.2 ; Seizure R56.9 and Depressive disorder, not elsewhere classified F32.9 [facility] [place] [address] [id number] [place] [address] May [facility] [place] [address] [id number] [place] [address] May Insomnia, unspecified type G47.00 [facility] [place] [address] [id number] [place] [address] May Drug-induced erectile dysfunction N52.2 [facility] [address] [facility] [id number] [place] [address] Feb, [facility] [place] [address] [id number] [place] [address] Jan [facility] [place] [address] [id number] [place] [address] Dec [facility] [place] [address] [id number] [place] [address] Nov [facility] [place] [address] [id number] [place] [address] Nov [facility] [place] [address] [id number] [place] [address] Nov [facility] [place] [address] [id number] [place] [address] Nov Seizure R56.9 ; Insomnia, unspecified type G47.00 and Depression F32.9 [facility] [place] [address] [id number] [place] [address] Oct [facility] [place] [address] [id number] [place] [address] Oct [facility] [place] [address] [id number] [place] [address] Oct Depressive disorder, not elsewhere classified F32.9 ; Unspecified 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 of intractable epilepsy G40.909 and Insomnia, unspecified type G47.00 [facility] [place] [address] [id number] [place] [address] Sep Other insomnia G47.09 [facility] [place] [address] [place] [address] Sep, [facility]e-Nicotine TechnologiesK [place] [address] [id number] [place] [address] July Depression F32.9 and Seizure R56.9 [facility] [place] [address] [id number] [place] [address] Jun Depression F32.9 ; History of attempted suicide Z91.5 and Unspecified 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 of intractable epilepsy 345.90 [facility] [place] [address] [id number] [place] [address] May Depression F32.9 and History of attempted suicide Z91.5 [facility] [address]00565100[place], [place] [address] May, [facility] [place] [address] [id number] [place] [address] Mar Seizure disorder G40.909 ; Depression F32.9 and Suicide attempt by drug ingestion T50.902A [facility] [address] [id number] [address] Jun, [facility] [address]00565100[place], [place] [address] Jun, [facility] [address] [place] [address] Oct, [facility] [address] [id number] [place] [address] Oct, [facility] [address] [id number] [place] [address] Jun, [facility] [address] [id number] [place] [address] Jun, [facility] [address] [id number] [address] Jun, [facility] [address] [id number] [place] [address] Jun, [facility] [address] [facility] [id number], [place] [address] Mar, [facility] [address] [id number] [place] [address] Mar, [facility] [address] [id number] [address] Mar, [facility] [address] [id number] [place] [address] Mar, [facility] [address] [id number], [place] [id number] Mar, [facility] [address] [id number], [place] [address] Mar, [facility] [address] [id number][place] [id number] Feb, [facility] [address] [id number] [place] [address] Feb, [facility] [address] [facility] [id number], [place] [address] Feb, [facility] [address] [id number], [place] [address] Feb, [facility] [address] [facility] [id number], [place] [address] Feb, [facility] [address] [facility] [id number], [place] [address] Feb, [facility] [address] [facility] [id number], [place] [address] Feb, [facility] [address] [id number], [place] [id number] Feb, [facility] [address] [facility] [id number] [place] [address] Jan, [facility] [address] [facility] [id number], [place] [address] Jan, [facility] [address] [facility] [id number], [place] [address] Jan, [facility] [address] [facility] [id number], [place] [address] Jan, [facility] [address] [id number], [place] [id number] Jan, [facility] [address] [facility] [id number], [place] [address] Jan, [facility] [address] [facility] [id number], [place] [address] Jan, [facility] [address] [id number][place] [id number] Jan, [facility] [place] [facility] [address] [facility] [id number], [place] [address] Jan, [facility] [place] [facility] [address] [facility] [id number], [place] [address] Jan, [facility] [address] [facility] [id number], [place] [address] Jan, [facility] [address] [id number] [place] [id number] Dec, [facility] [address] [facility] [id number] [place] [id number] Dec, IMMUNIZATIONS No Known Immunizations SOCIAL HISTORY Never Assessed REASON FOR VISIT follow up, Pt having Lt arm pain from accident. JOHANNA Johnsno PLAN OF CARE Activity Details Follow Up 1 Week Reason:left elbow contusion VITAL SIGNS Height 67.5 in 2017-03-15 Weight 217.5 lbs 2017-03-15 Temperature 98.2 degrees Fahrenheit 2017-03-15 Heart Rate 80 bpm 2017-03-15 Respiratory Rate 18 2017-03-15 BMI 33.56 kg/m2 2017-03-15 Blood pressure systolic 108 mmHg 2017-03-15 Blood pressure diastolic 72 mmHg 2017-03-15 MEDICATIONS Medication Instructions Dosage Frequency Start Date End Date Duration Status Depakote 500 mg take 2 tablets (1,000 mg) by oral route 2 times per day Mar, Not-Taking Ambien 5 mg Orally PRN 1 tablet at bedtime Sep, Not-Taking Vicodin 5-300 MG Orally 2 times a day 1 tablet as needed 12h 27 Feb, 2017 07 days Active Mirtazapine 15 mg Orally Once a day 1 tablet before bedtime in the evening 24h Jun, 07 days Not-Taking Clorazepate Dipotassium 7.5 MG Orally Twice a day 1 tablet 12h Not -Taking Ambien 5 mg Orally Once a day at bedtime 1 tablet at bedtime 10 May, 2016 28 days Not-Taking Oxcarbazepine 600 MG TAKE 1 TABLET BY MOUTH TWICE DAILY 30 Active Fluoxetine HCl 20 MG TAKE 1 TABLET BY MOUTH ONCE DAILY 30 Active Levetiracetam 500 MG TAKE 3 TABLETS BY MOUTH TWICE DAILY 30 Active RESULTS No Results PROCEDURES No Known procedures INSTRUCTIONS MEDICATIONS ADMINISTERED No Known Medications MEDICAL (GENERAL) HISTORY Type Description Date Medical History seizures Medical History suicidal attempt x 7 Surgical History Rt eye surgery Hospitalization History seizures Hospitalization History Suicidal attempt 04/17/2015 Hospitalization History Generalized Tonic Clonic Seizure-[facility] 03/02/2015
--- OUTSIDE RECORDS SUMMARY | 2017-10-09 16:18 | XMS REPORT ---
Author Author BOBBI GUZMAN [facility] Address [address] [place] [address] Care Team Providers Care Manager Division Name Role Phone BOBBI GUZMAN Unavailable PROBLEMS Type Condition ICD9-CM Code IEA72-US Code Onset Dates Condition Status SNOMED Code Problem Unspecified 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 of intractable epilepsy G40.909 Active 71714742 Problem Depressive disorder, not elsewhere classified F32.9 Active 88968402 Problem Drug-induced erectile dysfunction N52.2 Active 749726327 Problem Insomnia, unspecified type G47.00 Active 804199038 Problem History of attempted suicide Z91.5 Active 539383726 Problem Viral warts, unspecified 078.10 Active 48683826 Problem Seizure R56.9 Active 93725872 Problem Depression F32.9 Active 54344892 ALLERGIES Substance Reaction Event Type Date Status Trazodone HCl Seizures Drug Allergy Feb, Active Asa Seizure Drug Allergy Feb, Active ENCOUNTERS Encounter Location Date Diagnosis [facility] [address] [id number] [place] [address] Aug Depressive disorder, not elsewhere classified F32.9 and Irritant contact dermatitis due to other agents L24.89 [facility] [address] [id number] [place] [address] Jun [facility] [address] [id number] [place] [address] Jun Depressive disorder, not elsewhere classified F32.9 and Seizure R56.9 [facility] [address] [id number] [place] [address] Jun Seizure R56.9 [facility] [address] [id number] [place] [address] Jun Depressive disorder, not elsewhere classified F32.9 and Seizure R56.9 [facility] [place] [address] [id number] [place] [address] Jun Unspecified 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 of intractable epilepsy G40.909 [facility] [place] [address] [id number] [place] [address] Jun Depressive disorder, not elsewhere classified F32.9 ; Seizure R56.9 and Insomnia, unspecified type G47.00 [facility] [place] [address] [id number] [place] [address] May [facility] [place] [address] [id number] [place] [address] May [facility] [place] [address] [id number] [place] [address] Mar [facility] [place] [address] [id number] [place] [address] Feb Contusion of left elbow, subsequent encounter S50.02XD [facility] [place] [address] [id number] [place] [address] Feb Contusion of left elbow, subsequent encounter S50.02XD [facility] [place] [address] [id number] [place] [address] Feb Contusion of left elbow, subsequent encounter S50.02XD [facility] [place] [address] [id number] [place] [address] Dec Insomnia, unspecified type G47.00 ; Seizure R56.9 and Acute nasopharyngitis J00 [facility] [place] [address] [id number] [place] [address] Nov Insomnia, unspecified type G47.00 [facility] [place] [address] [id number] [place] [address] Sep [facility] [place] [address] [id number] [place] [address] Sep Depression F32.9 and Insomnia, unspecified type G47.00 [facility] [place] [address] [id number] [place] [address] Aug [facility] [address] [facility] [id number] [place] [id number] Aug, Insomnia, unspecified type G47.00 [facility] [place] [address] [id number] [place] [address] July Insomnia, unspecified type G47.00 [facility] [place] [address] [id number] [place] [address] July [facility] [place] [address] [id number] [place] [address] Jun Acute nasopharyngitis J00 [facility] [place] [address] [id number] [place] [address] May Drug-induced erectile dysfunction N52.2 ; Seizure R56.9 and Depressive disorder, not elsewhere classified F32.9 [facility] [place] [address] [id number] [place] [address] May [facility] [place] [address] [id number] [place] [address] May Insomnia, unspecified type G47.00 [facility] [place] [address] [id number] [place] [address] May Drug-induced erectile dysfunction N52.2 [facility] [address] [facility] [place] [place] [id number] [place] [address] Feb, [facility] [place] [address] [id number] [place] [address] Jan [facility] [place] [address] [id number] [place] [address] Dec [facility] [place] [address] [id number] [place] [address] Nov [facility] [place] [address] [id number] [place] [address] Nov [facility] [place] [address] [id number] [place] [address] Nov [facility] [place] [address] [id number] [place] [address] Nov Seizure R56.9 ; Insomnia, unspecified type G47.00 and Depression F32.9 [facility] [place] [address] [id number] [place] [address] Oct [facility] [place] [address] [id number] [place] [address] Oct [facility] [place] [address] [id number] [place] [address] Oct Depressive disorder, not elsewhere classified F32.9 ; Unspecified 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 of intractable epilepsy G40.909 and Insomnia, unspecified type G47.00 [facility] [place] [address] [id number] [place] [address] Sep Other insomnia G47.09 [facility] [place] [address] [place] [address] Sep, [facility] [place] [address] [id number] [place] [address] July Depression F32.9 and Seizure R56.9 [facility] [place] [address] [id number] [place] [address] Jun Depression F32.9 ; History of attempted suicide Z91.5 and Unspecified 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 of intractable epilepsy 345.90 [facility] [place] [address] [id number] [place] [address] May Depression F32.9 and History of attempted suicide Z91.5 [facility] [address]00565100[place], [place] [address] May, [facility] [place] [address] [id number] [place] [address] Mar Seizure disorder G40.909 ; Depression F32.9 and Suicide attempt by drug ingestion T50.902A [facility] [address] [id number], [place] [address] Jun, [facility] [address]00565100[place], [place] [address] Jun, [facility] [id number] [address] Oct, [facility] [address] [id number] [place] [address] Oct, [facility] [address] [id number] [place] [address] Jun, [facility] [address] [id number] [place] [address] Jun, [facility] [address] [id number] [address] Jun, [facility] [address] [id number] [place] [address] Jun, [facility] [address] [facility] [place] [id number], [place] [address] Mar, [facility] [address] [id number] [place] [address] Mar, [facility] [address] [id number][place] [id number] Mar, [facility] [address] [id number] [place] [address] Mar, [facility] [address] [id number] [address] Mar, [facility] [address] [id number], [place] [address] Mar, [facility] [address] [id number][place] [address] Feb, [facility] [address] [id number] [place] [address] Feb, [facility] [address] [facility] [place] [id number], [place] [address] Feb, [facility] [address] [id number], [place] [address] Feb, [facility] [address] [facility] [place] [id number], [place] [address] Feb, [facility] [address] [facility] [place] [id number], [place] [address] Feb, [facility] [address] [facility] [place] [id number], [place] [address] Feb, [facility] [address] [id number][place] [id number] Feb, [facility] [address] [facility] [place] [id number] [place] [address] Jan, [facility] [address] [facility] [place] [id number], [place] [address] Jan, [facility] [address] [facility] [place] [id number], [place] [address] Jan, [facility] [address] [facility] [place] [id number], [place] [address] Jan, [facility] [address] [id number][place] [address] Jan, [facility] [address] [facility] [place] [id number], [place] [address] Jan, [facility] [address] [facility] [place] [id number], [place] [address] Jan, [facility] [address] [id number][place] [id number] Jan, [facility] [place] [facility] [address] [facility] [place] [id number], [place] [address] Jan, [facility] [place] [facility] [address] [facility] [place] [id number], [place] [address] Jan, [facility] [place] [facility] [address] [facility] [place] [facility] [id number], [place] [address] Jan, [facility] [address] [id number] [place] [id number] Dec, [facility] [address] [facility] [place] [id number] [place] [address] Dec, IMMUNIZATIONS No Known Immunizations SOCIAL HISTORY Never Assessed REASON FOR VISIT Arm follow up Win GAR PLAN OF CARE Activity Details Follow Up prn Reason: VITAL SIGNS Height 67.5 in 2017-03-22 Weight 218.0 lbs 2017-03-22 Temperature 98.2 degrees Fahrenheit 2017-03-22 Heart Rate 98 bpm 2017-03-22 Respiratory Rate 18 2017-03-22 BMI 33.64 kg/m2 2017-03-22 Blood pressure systolic 110 mmHg 2017-03-22 Blood pressure diastolic 78 mmHg 2017-03-22 MEDICATIONS Medication Instructions Dosage Frequency Start Date End Date Duration Status Depakote 500 mg take 2 tablets (1,000 mg) by oral route 2 times per day 14 Mar, 2013 Not-Taking Clorazepate Dipotassium 7.5 MG Orally Twice a day 1 tablet 12h Not -Taking Vicodin 5-300 MG Orally 2 times a day 1 tablet as needed 12h Mar, 07 days Active Ambien 5 mg Orally PRN 1 tablet at bedtime Sep, Not-Taking Oxcarbazepine 600 MG TAKE 1 TABLET BY MOUTH TWICE DAILY 30 Active Levetiracetam 500 MG TAKE 3 TABLETS BY MOUTH TWICE DAILY 30 Active Fluoxetine HCl 20 MG TAKE 1 TABLET BY MOUTH ONCE DAILY 30 Active Hydrocodone-Acetaminophen 5-325 MG Orally 2 times a day 1 tablet as needed 12h Feb, Mar, 07 days Active Ambien 5 mg Orally Once a day at bedtime 1 tablet at bedtime May, 28 days Not-Taking Mirtazapine 15 mg Orally Once a day 1 tablet before bedtime in the evening 24h Jun, 07 days Not-Taking RESULTS Name Result Date Reference Range Xray : Elbow, Left 2017-03-22 PROCEDURES No Known procedures INSTRUCTIONS MEDICATIONS ADMINISTERED No Known Medications MEDICAL (GENERAL) HISTORY Type Description Date Medical History seizures Medical History suicidal attempt x 7 Surgical History Rt eye surgery Hospitalization History seizures Hospitalization History Suicidal attempt 04/17/2015 Hospitalization History Generalized Tonic Clonic Seizure-[facility] 03/02/2015
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
[2017-10-09 16:45] LABS: BASOPHILS % (AUTO) 0 % (0-10); EOSINOPHILS % (AUTO) 0 % (0-10); HEMATOCRIT 40 % (40-54); LYMPHOCYTES # (AUTO) 1.4 X 10^3 (1.0-4.0); LYMPHOCYTES % (AUTO) 19 % (12-44); MEAN CORPUSCULAR HEMOGLOBIN 33 PG (25-34); MEAN CORPUSCULAR HGB CONC 35 G/DL (32-36); MEAN CORPUSCULAR VOLUME 93 FL (80-99); MEAN PLATELET VOLUME 10.2 FL (7.4-10.4); MONOCYTES # (AUTO) 0.5 X 10^3 (0.0-1.0); MONOCYTES % (AUTO) 7 % (0-12); NEUTROPHILS # (AUTO) 5.5 X 10^3 (1.8-7.8); NEUTROPHILS % (AUTO) 74 % (42-75); PLATELET COUNT 318 10^3/uL (130-400); RED BLOOD COUNT 4.26 10^6/uL (4.35-5.85); RED CELL DISTRIBUTION WIDTH 12.3 % (10.0-14.5); WHITE BLOOD COUNT 7.4 10^3/uL (4.3-11.0)
--- NOTE | 2017-10-09 17:17 | Diagnostic Imaging Report ---
CLINICAL INDICATION: Patient with vision changes, dizziness, nausea, vomiting, and trouble walking. EXAM: Axial CT scan of the brain performed without IV contrast. COMPARISON: Head CT without contrast dated 12/01/2015. FINDINGS: There is no evidence of acute cerebral infarct, intracranial hemorrhage, or gross mass effect. The brain parenchymal volume appears appropriate for patient's age. There is normal whyte-white matter distinction. There is no significant midline shift or herniation. There is no evidence of hydrocephalus. The basal cisterns are unremarkable. The skull, extracranial soft tissue, and orbits are unremarkable. The paranasal sinuses are unremarkable. Temporal bones show no significant abnormality. IMPRESSION: Unremarkable CT scan of the brain. Dictated by: Dictated on workstation # [id number]
[2017-10-09 17:28] LABS: ALANINE AMINOTRANSFERASE 15 U/L (0-55); ALBUMIN 4.3 GM/DL (3.2-4.5); ALKALINE PHOSPHATASE 76 U/L (40-136); BILIRUBIN,TOTAL 0.4 MG/DL (0.1-1.0); BUN/CREATININE RATIO 16; CALCIUM 9.2 MG/DL (8.5-10.1); CARBON DIOXIDE 25 MMOL/L (21-32); CHLORIDE 108 MMOL/L (98-107); CREATINE KINASE 123 U/L (30-200); CREATININE SERUM 0.96 MG/DL (0.60-1.30); GFR ESTIMATED > 60; GLUCOSE 104 MG/DL (70-105); POTASSIUM 3.7 MMOL/L (3.6-5.0); SODIUM 141 MMOL/L (135-145)
[2017-10-09] MEDS ORDERED: ONDANSETRON 4 MG (ZOFRAN) ORAL DISSOLVE TAB SL ONE (18:15)
[2017-10-09 18:16] VITALS: BP 149/79
== END 2017-10-09 18:19 | disposition home or self-care (01) ==
LOC: EDUNIT# 15:41 → ER 15:42
DX: R11.10 Vomiting, unspecified (principal); G40.909 Epilepsy, unspecified, not intractable, without status epilepticus; F41.9 Anxiety disorder, unspecified; F32.9 Major depressive disorder, single episode, unspecified; Z88.6 Allergy status to analgesic agent
CPT/HCPCS: 36415; 70450; 80053; 82550; 85025; 96361; 96374

== ENCOUNTER 2017-10-26 14:48 | Emergency (ER) | payer BC ==
[~2017-10-26] VITALS: Ht 177.8 cm; Wt 87.1 kg
[2017-10-26] MEDS ORDERED: ACETAMINOPHEN 325 MG TABLET PO STA (15:32)
--- NOTE | 2017-10-26 15:38 | ED Upper Extremity ---
General Chief Complaint: Upper Extremity Stated Complaint: RIGHT HAND INJ Nursing Triage Note: PATIENT HERE FOR CONCERNS ABOUT HIS RIGHT HAND. HE STATES THAT TWO DAYS AGO WHILE AT WORK HE GOT ANGER AND PUNCHED A PIECE OF WOOD. HE HAS BEEN USING ICE AND IBUPROFEN AND THE PAIN IS NOT IMPROVING. RIGHT HAND BRUISED AND SWOLLEN. Nursing Sepsis Screen: No Definite Risk History of Present Illness Date Seen by Provider: Oct 26, 2017 Time Seen by Provider: 15:20 Initial Comments 37-year-old male presents for right hand pain. He reports 2 days ago that he punched a piece of wood that finger. He is right-hand dominant symptoms and has been having pain at the fourth and fifth metacarpals. He denies any previous history of injuries to his right hand he has been taking ibuprofen 600 mg for the pain. He's tried ice with minimal improvement. Pain/Injury Location: right hand Method of Injury: direct blow Modifying Factors: Improves With Immobilization, Improves With Pain Medication Allergies and Home Medications Allergies Coded Allergies: aspirin (Unverified Allergy, Mild, 03/03/16) PT'S SO STATES HE IS ALLERGIC TO ASPIRIN--WHEN ASKED WHAT THE REACTION IS SHE STATES HE HAS NOT ACTUALLY HAD ONE, BUT IS NOT SUPPOSED TO TAKE ASPIRIN D/T MEDICATION INTERACTION. Home Medications Fluoxetine HCl 60 Mg Tablet, 30 MG PO DAILY, (Reported) Levetiracetam 500 Mg Tablet, 1,500 MG PO BID, (Reported) Oxcarbazepine 600 Mg Tablet, 600 MG PO BID, (Reported) Patient Home Medication List Home Medication List Reviewed: Yes Constitutional: no symptoms reported Musculoskeletal: see HPI, joint pain (right hand), joint swelling All Other Systems Reviewed Negative Unless Noted: Yes Past Mibqgzk-Mlfhjv-Kkwdnq Hx Past Med/Social Hx: Reviewed Nursing Past Med/Soc Hx Patient Social History Alcohol Use: Denies Use Number of Drinks Today: GG Alcohol Beverage of Choice: Whiskey Recreational Drug Use: No Drug of Choice: POT Smoking Status: Current Everyday Smoker Type Used: Cigarettes, Smokeless Tobacco Former Smoker, Quit: Nov 26, 2015 2nd Hand Smoke Exposure: No Recent Foreign Travel: No Contact w/Someone Who Travel: No Recent Infectious Disease Expo: No Recent Hopitalizations: No Physical Abuse: No Sexual Abuse: No Immunizations Up To Date Tetanus Booster (TDap): Less than 5yrs Seasonal Allergies Seasonal Allergies: No Past Medical History Surgeries: Yes Eye Surgery Respiratory: No Cardiac: No Neurological: Yes Seizure Disorder Reproductive Disorders: No Genitourinary: No Gastrointestinal: No Musculoskeletal: Yes (ARM FX) Fractures Endocrine: No Loss of Vision: Denies Hearing Impairment: Denies Cancer: No Psychosocial: Yes Sleep Difficulties, Anxiety, Depression Nursing Suicide Risk Score: 0 Integumentary: No Blood Disorders: No Adverse Reaction/Blood Tranf: No Family Medical History FH: stroke 19 FATHER Physical Exam Vital Signs Vital Signs - First Documented 10/26/17 14:55 Temp 97.3 Pulse 68 Resp 20 B/P (MAP) 117/78 (91) Pulse Ox 96 Capillary Refill : Less Than 3 Seconds Height, Weight, BMI Height: 5'10.00" Weight: 192lbs. 0oz. 87.275211ge; 29.8 BMI Method:Stated General Appearance: WD/WN, no apparent distress Neck: non-tender, full range of motion, normal inspection Cardiovascular: normal peripheral pulses Respiratory: chest non-tender, lungs clear Wrist: Yes normal inspection, Yes non-tender, Yes no evidence of injury, Yes normal ROM Hand: Right, bone tenderness (fourth and fifth metacarpals, distally), ecchymosis, limited ROM (fifth finger right hand, resisted flexion/extension V/V ), soft tissue tenderness, swelling Neurologic/Tendon: normal sensation, normal motor functions, normal tendon functions Neurologic/Psychiatric: no motor/sensory deficits, alert, normal mood/affect, oriented x 3 Skin: normal color, warm/dry Progress/Results/Core Measures Results/Orders My Orders Orders - LILY KIMBLE Hand, Right, 3 Views (10/26/17 15:11) Acetaminophen Tablet/Caplet (Tylenol T (10/26/17 15:32) Vital Signs/I&O 10/26/17 10/26/17 14:55 15:41 Temp 97.3 97.3 Pulse 68 68 Resp 20 20 B/P (MAP) 117/78 (91) 117/78 (91) Pulse Ox 96 96 Blood Pressure Mean: 91 Progress Progress Note : Time: 15:20 Progress Note Initial evaluation completed, aluminum splint applied to right hand/wrist secured with 4 inch Get wrap. Andrea tape fourth and fifth finger completed. Discharge instructions and return precautions reviewed with patient. All questions answered. Diagnostic Imaging Diagonstic Imaging: Xray Plain Films/CT/US/NM/MRI: hand Comments NAME: MIREYA GUTIERREZ [facility] REC#: [id number] PT STATUS: REG ER : 1980 PHYSICIAN: LILY KIMBLE ADMIT DATE: 10/26/17/ER Draft Date of Exam:10/26/17 HAND, RIGHT, 3 VIEWS INDICATION: Injury to right hand. EXAM: AP, oblique, lateral views of the right hand are obtained at 3:44 hours p.m. FINDINGS: There is an acute fracture of the distal aspect of the fifth metacarpal with mild volar angulation. Remaining bony structures are intact. IMPRESSION: Acute fifth metacarpal fracture, as described above. Dictated on workstation # [id number] Dict: 10/26/17 1528 Trans: 10/26/17 1536 [facility] [id number] Interpreted by: CHIKA MCCORMACK MD Electronically signed by: Departure Impression Primary Impression: Fracture of fifth metacarpal bone of right hand Qualified Codes: S62.366A - Nondisplaced fracture of neck of fifth metacarpal bone, right hand, initial encounter for closed fracture Disposition: HOME, SELF-CARE Condition: Improved Departure-Patient Inst. Decision time for Depature: 15:35 Referrals: NO,LOCAL PHYSICIAN (PCP/Family) Primary Care Physician Patient Instructions: Boxer's Fracture (DC) Add. Discharge Instructions: Ice to right hand 20 minutes every 2 hours while awake. You may alternate between Tylenol 650 mg and ibuprofen 600 mg every 4 hours for pain. Elevate right hand and wear splint. Andrea Tape fourth and fifth fingers. Schedule appt with Orthopedics: or [facility]. Return to emergency department for new health problems. All discharge instructions reviewed with patient and/or family. Voiced understanding. Work/School Note: Work Release Form Date Seen in the Emergency Department: Oct 26, 2017 Return to Work: Oct 27, 2017 Other Restrictions Listed Below: Must wear splint to right hand. Limited use right hand Restrictions: Ice to right hand 2-3 times daily LILY KIMBLE Oct 26, 2017 15:38
[2017-10-26 15:41] VITALS: BP 117/78
== END 2017-10-26 15:45 | disposition home or self-care (01) ==
LOC: EDUNIT# 14:48 → ER 14:50
DX: S62.316A Displaced fracture of base of fifth metacarpal bone, right hand, initial encounter for closed fracture (principal); G40.909 Epilepsy, unspecified, not intractable, without status epilepticus; F41.9 Anxiety disorder, unspecified; F32.9 Major depressive disorder, single episode, unspecified; F12.10 Cannabis abuse, uncomplicated; F17.210 Nicotine dependence, cigarettes, uncomplicated; Z88.6 Allergy status to analgesic agent; W22.09XA Striking against other stationary object, initial encounter
CPT/HCPCS: 73130

== ENCOUNTER 2017-12-22 21:35 | Emergency (ER) | payer BC ==
[~2017-12-22] VITALS: Ht 175.3 cm; Wt 83.9 kg
[~2017-12-22 21:35] MED LIST changes: +HYDR-4226 PO; -HYDR-757 PO; -OXCA600T PO; +OXCA600T10 PO
[2017-12-22] MEDS ORDERED: LACTATED RINGERS 1,000 ML IV ONE ×2 (21:42→22:28)
[2017-12-22 21:48] LABS: BASOPHILS % (AUTO) 1 % (0-10); EOSINOPHILS # (AUTO) 0.2 10^3/uL (0.0-0.3); EOSINOPHILS % (AUTO) 2 % (0-10); HEMATOCRIT 39 % (40-54); HEMOGLOBIN 13.6 G/DL (13.3-17.7); LYMPHOCYTES # (AUTO) 2.1 X 10^3 (1.0-4.0); LYMPHOCYTES % (AUTO) 31 % (12-44); MEAN CORPUSCULAR HEMOGLOBIN 34 PG (25-34); MEAN CORPUSCULAR HGB CONC 35 G/DL (32-36); MEAN CORPUSCULAR VOLUME 95 FL (80-99); MEAN PLATELET VOLUME 10.5 FL (7.4-10.4); MONOCYTES # (AUTO) 0.7 X 10^3 (0.0-1.0); MONOCYTES % (AUTO) 10 % (0-12); NEUTROPHILS # (AUTO) 3.6 X 10^3 (1.8-7.8); NEUTROPHILS % (AUTO) 56 % (42-75); PLATELET COUNT 326 10^3/uL (130-400); RED BLOOD COUNT 4.06 10^6/uL (4.35-5.85); WHITE BLOOD COUNT 6.5 10^3/uL (4.3-11.0)
[2017-12-22] MEDS ORDERED: RX-ALBUTEROL NEB 2.5 MG/3 ML PACK #5 IH STA (21:51)
--- NOTE | 2017-12-22 22:10 | Diagnostic Imaging Report ---
INDICATION: Seizures. Comparison is made to prior from 03/03/2016. FINDINGS: Lungs demonstrate no focal infiltrate or consolidation. There is no effusion. There is no pneumothorax. Heart size and mediastinal contours appear appropriate. The pulmonary vascularity appears normal. IMPRESSION: 1. No radiographic evidence of an acute cardiopulmonary process. Dictated by: Dictated on workstation # [id number]
[2017-12-22 22:23] LABS: ALANINE AMINOTRANSFERASE 18 U/L (0-55); ALKALINE PHOSPHATASE 77 U/L (40-136); BILIRUBIN,TOTAL 0.1 MG/DL (0.1-1.0); BUN/CREATININE RATIO 17; CALCIUM 9.1 MG/DL (8.5-10.1); CARBON DIOXIDE 17 MMOL/L (21-32); CHLORIDE 110 MMOL/L (98-107); CREATINE KINASE 137 U/L (30-200); CREATININE SERUM 0.88 MG/DL (0.60-1.30); GFR ESTIMATED > 60; GLUCOSE 80 MG/DL (70-105); MAGNESIUM 2.7 MG/DL (1.8-2.4); POTASSIUM 4.6 MMOL/L (3.6-5.0); SODIUM 145 MMOL/L (135-145); TOTAL PROTEIN 7.1 GM/DL (6.4-8.2)
--- NOTE | 2017-12-22 22:32 | ED Neurological Problem ---
General Chief Complaint: Neurological Problems Stated Complaint: SEIZURE Source: patient, EMS Exam Limitations: other (PT SOMEWHAT LIMITED HISTORIAN) Allergies and Home Medications Allergies Coded Allergies: aspirin (Unverified Allergy, Mild, 03/03/16) PT'S SO STATES HE IS ALLERGIC TO ASPIRIN--WHEN ASKED WHAT THE REACTION IS SHE STATES HE HAS NOT ACTUALLY HAD ONE, BUT IS NOT SUPPOSED TO TAKE ASPIRIN D/T MEDICATION INTERACTION. Home Medications Fluoxetine HCl 60 Mg Tablet, 30 MG PO DAILY, (Reported) Levetiracetam 500 Mg Tablet, 1,500 MG PO BID, (Reported) Oxcarbazepine 600 Mg Tablet, 600 MG PO BID, (Reported) Past Ceqrjrk-Ajupyz-Pvqmdh Hx Patient Social History Alcohol Beverage of Choice: Whiskey Drug of Choice: POT Type Used: Cigarettes, Smokeless Tobacco Former Smoker, Quit: Nov 26, 2015 2nd Hand Smoke Exposure: No Recent Hopitalizations: No Immunizations Up To Date Tetanus Booster (TDap): Less than 5yrs Seasonal Allergies Seasonal Allergies: No Past Medical History Surgeries: Yes Eye Surgery Respiratory: No Cardiac: No Neurological: Yes Seizure Disorder Reproductive Disorders: No Genitourinary: No Gastrointestinal: No Musculoskeletal: Yes (ARM FX) Fractures Endocrine: No Loss of Vision: Denies Hearing Impairment: Denies Cancer: No Psychosocial: Yes Sleep Difficulties, Anxiety, Depression Integumentary: No Blood Disorders: No Adverse Reaction/Blood Tranf: No Family Medical History FH: stroke 19 FATHER Physical Exam Vital Signs Capillary Refill : Height, Weight, BMI Height: 5'10.00" Weight: 192lbs. 0oz. 87.495391gu; 29.8 BMI Method:Stated Progress/Results/Core Measures Results/Orders Lab Results Laboratory Tests Test 12/22/17 21:42 12/22/17 21:55 Range/Units White Blood Count 6.5 4.3-11.0 10^3/uL Red Blood Count 4.06 L 4.35-5.85 10^6/uL Hemoglobin 13.6 13.3-17.7 G/DL Hematocrit 39 L 40-54 % Mean Corpuscular Volume 95 80-99 FL Mean Corpuscular Hemoglobin 34 25-34 PG Mean Corpuscular Hemoglobin Concent 35 32-36 G/DL Red Cell Distribution Width 12.0 10.0-14.5 % Platelet Count 326 130-400 10^3/uL Mean Platelet Volume 10.5 H 7.4-10.4 FL Neutrophils (%) (Auto) 56 42-75 % Lymphocytes (%) (Auto) 31 12-44 % Monocytes (%) (Auto) 10 0-12 % Eosinophils (%) (Auto) 2 0-10 % Basophils (%) (Auto) 1 0-10 % Neutrophils # (Auto) 3.6 1.8-7.8 X 10^3 Lymphocytes # (Auto) 2.1 1.0-4.0 X 10^3 Monocytes # (Auto) 0.7 0.0-1.0 X 10^3 Eosinophils # (Auto) 0.2 0.0-0.3 10^3/uL Basophils # (Auto) 0.0 0.0-0.1 10^3/uL Sodium Level 145 135-145 MMOL/L Potassium Level 4.6 3.6-5.0 MMOL/L Chloride Level 110 H 98-107 MMOL/L Carbon Dioxide Level 17 L 21-32 MMOL/L Anion Gap 18 H 5-14 MMOL/L Blood Urea Nitrogen 15 7-18 MG/DL Creatinine 0.88 0.60-1.30 MG/DL Estimat Glomerular Filtration Rate > 60 BUN/Creatinine Ratio 17 Glucose Level 80 70-105 MG/DL Calcium Level 9.1 8.5-10.1 MG/DL Corrected Calcium 9.1 8.5-10.1 MG/DL Magnesium Level 2.7 H 1.8-2.4 MG/DL Total Bilirubin 0.1 0.1-1.0 MG/DL Aspartate Amino Transf (AST/SGOT) 27 5-34 U/L Alanine Aminotransferase (ALT/SGPT) 18 0-55 U/L Alkaline Phosphatase 77 40-136 U/L Total Creatine Kinase 137 30-200 U/L Total Protein 7.1 6.4-8.2 GM/DL Albumin 4.0 3.2-4.5 GM/DL My Orders Orders - CARLOS FLORES K DO Saline Lock/Iv-Start (12/22/17 21:42) Ekg Tracing (12/22/17 21:42) Monitor-Rhythm Ecg Trace Only (12/22/17 21:42) Alcohol (12/22/17 21:42) Cbc With Automated Diff (12/22/17 21:42) Comprehensive Metabolic Panel (12/22/17 21:42) Creatine Kinase (12/22/17 21:42) Creatine Kinase Mb (12/22/17 21:42) Drug Screen Stat (Urine) (12/22/17 21:42) Magnesium (12/22/17 21:42) Ua Culture If Indicated (12/22/17 21:42) Myoglobin Serum (12/22/17 21:42) Chest 1 View, Ap/Pa Only (12/22/17 21:42) Saline Lock/Iv-Start (12/22/17 21:42) Lactated Ringers (Lr 1000 Ml Iv Solution (12/22/17 21:42) Rx-Albuterol Nebs (Rx-Proventil Nebs) (12/22/17 21:51) Medications Given in ED Current Medications Medications Dose Ordered Sig/Susanne Route Start Time Stop Time Status Last Admin Dose Admin Lactated Ringer's 1,000 ml @ 0 mls/hr Q0M ONCE IV 12/22/17 21:42 12/22/17 21:44 DC 12/22/17 21:46 1,000 MLS/HR Diagnostic Imaging Comments CXR--NO ACUTE PROCESS, PER RADIOLOGIST REPORT @ 2227 Reviewed: Reviewed by Me Departure Impression Primary Impression: SEIZURE WITH KNOWN SEIZURE HISTORY Additional Impression: SUSPECT NON-COMPLIANCE Disposition: 01 HOME, SELF-CARE Condition: Stable Departure-Patient Inst. Referrals: [facility] Patient Instructions: Seizures, Adult (DC) Add. Discharge Instructions: LOTS OF CLEAR LIQUIDS NO ALCOHOL OR DRUGS TAKE ALL OF YOUR MEDICATIONS EXACTLY PRESCRIBED AND DO NOT MISS DOSES FOLLOW UP WITH YOUR DR NEXT WEEK FOR FURTHER CARE All discharge instructions reviewed with patient and/or family. Voiced understanding. CARLOS FLORES DO Dec 22, 2017 22:32
[2017-12-22 22:41] LABS: BILIRUBIN,URINE NEGATIVE (NEGATIVE); CLARITY,URINE CLEAR; COLOR,URINE YELLOW; GLUCOSE, URINE (UA) NEGATIVE (NEGATIVE); KETONES,URINE NEGATIVE (NEGATIVE); LEUKOCYTE ESTERASE ,URINE NEGATIVE (NEGATIVE); NITRITE,URINE NEGATIVE (NEGATIVE); PH,URINE 6 (5-9); PROTEIN,URINE 1+ (NEGATIVE); UROBILINOGEN,URINE NORMAL (NORMAL)
[2017-12-22 22:48] LABS: SQUAMOUS EPITHELIAL CELL,UR RARE /HPF
[2017-12-22 22:53] LABS: AMPHETAMINE SCREEN, URINE NEGATIVE (NEGATIVE); BARBITURATE SCREEN URINE NEGATIVE (NEGATIVE); BENZODIAZEPINES SCREEN URINE NEGATIVE (NEGATIVE); CANNABINOID SCREEN, URINE POSITIVE (NEGATIVE); COCAINE SCREEN URINE NEGATIVE (NEGATIVE); METHADONE STAT NEGATIVE (NEGATIVE); METHAMPHETAMINE SCREEN URINE S NEGATIVE (NEGATIVE); OPIATE SCREEN URINE NEGATIVE (NEGATIVE); OXYCODONE STAT NEGATIVE (NEGATIVE); PROPOXYPHENE STAT NEGATIVE (NEGATIVE); TRICYCLIC ANTIDEPRESSANTS SCRE NEGATIVE (NEGATIVE)
[2017-12-22 23:27] VITALS: BP 135/87
== END 2017-12-22 23:17 | disposition home or self-care (01) ==
LOC: EDUNIT# 21:35 → ER 21:36
DX: G40.909 Epilepsy, unspecified, not intractable, without status epilepticus (principal); F41.9 Anxiety disorder, unspecified; F32.9 Major depressive disorder, single episode, unspecified; Z88.6 Allergy status to analgesic agent; Z87.891 Personal history of nicotine dependence
CPT/HCPCS: 36415; 71045; 80053; 80306; 80320; 81000; 82550; 82553; 83735; 83874; 85025; 93005; 93041

== ENCOUNTER 2018-01-05 14:24 | Emergency (ER) | payer BC ==
[2018-01-05] MEDS ORDERED: LORazepam INJ 2 MG/ML (ATIVAN) VIAL ONE (15:07)
--- NOTE | 2018-01-05 15:42 | ED Neurological Problem ---
General Chief Complaint: Neurological Problems Stated Complaint: SEIZURE Source: patient, family Exam Limitations: no limitations History of Present Illness Date Seen by Provider: Jan 05, 2018 Time Seen by Provider: 14:50 Initial Comments The patient is a 37-year-old white male who was brought into the emergency room because of a seizure suffered at home. He is accompanied by his mother. He has been here 3 times in the last 2 weeks. He was here twice on 12/22 after suffering seizures. He was ultimately sent to [place] and reportedly was seen at [place]. After discharge he became violently ill and was rehospitalized at [facility] where he improved greatly. He has seen Dr. Sanchez in [place] this was apparently not satisfying. By description these what appeared to be complex partial seizures. At the time of my examination he had recovered from his postictal state and was quite clear in his history giving. He reports that he has had these seizures for at least 3 years. He was seen at [facility] in their seizure lab and started on his initial medications. Timing/Duration: 1/2 hour Severity: moderate Associated Symptoms: other (grand mal type seizure prior to arrival from home) Allergies and Home Medications Allergies Coded Allergies: aspirin (Unverified Allergy, Mild, 03/03/16) PT'S SO STATES HE IS ALLERGIC TO ASPIRIN--WHEN ASKED WHAT THE REACTION IS SHE STATES HE HAS NOT ACTUALLY HAD ONE, BUT IS NOT SUPPOSED TO TAKE ASPIRIN D/T MEDICATION INTERACTION. Home Medications Fluoxetine HCl 60 Mg Tablet, 30 MG PO DAILY, (Reported) Levetiracetam 500 Mg Tablet, 1,500 MG PO BID, (Reported) Oxcarbazepine 600 Mg Tablet, 600 MG PO BID, (Reported) Patient Home Medication List Home Medication List Reviewed: Yes Review of Systems Review of Systems Constitutional: see HPI Ears, Nose, Mouth, Throat: no symptoms reported Respiratory: no symptoms reported Cardiovascular: no symptoms reported Gastrointestinal: no symptoms reported Genitourinary: no symptoms reported Musculoskeletal: no symptoms reported Skin: no symptoms reported Psychiatric/Neurological: Tonic Clonic Seizures Endocrine: No Symptoms Reported Hematologic/Lymphatic: No Symptoms Reported Past Lohtoss-Zsvtdd-Temjqu Hx Patient Social History Alcohol Beverage of Choice: Whiskey Drug of Choice: POT Type Used: Cigarettes, Smokeless Tobacco Former Smoker, Quit: Nov 26, 2015 2nd Hand Smoke Exposure: No Recent Hopitalizations: No Immunizations Up To Date Tetanus Booster (TDap): Less than 5yrs Seasonal Allergies Seasonal Allergies: No Past Medical History Surgeries: Yes Eye Surgery Respiratory: No Cardiac: No Neurological: Yes Seizure Disorder Reproductive Disorders: No Genitourinary: No Gastrointestinal: No Musculoskeletal: Yes (ARM FX) Fractures Endocrine: No Loss of Vision: Denies Hearing Impairment: Denies Cancer: No Psychosocial: Yes Sleep Difficulties, Anxiety, Depression Integumentary: No Blood Disorders: No Adverse Reaction/Blood Tranf: No Family Medical History FH: stroke 19 FATHER Physical Exam Vital Signs Capillary Refill : Height, Weight, BMI Height: 5'9.00" Weight: 185lbs. 0oz. 83.648327gp; 29.8 BMI Method:Stated General Appearance: WD/WN, no apparent distress HEENT: normal ENT inspection Neck: full range of motion Respiratory: chest non-tender, lungs clear, normal breath sounds, no respiratory distress, no accessory muscle use, respiratory distress Cardiovascular: normal peripheral pulses, regular rate, rhythm, no edema, no gallop, no JVD, no murmur Gastrointestinal: normal bowel sounds, non tender, soft, no organomegaly, no pulsatile mass Back: normal inspection, no CVA tenderness, no vertebral tenderness, CVA tenderness (R), CVA tenderness (L) Neurologic/Psychiatric: supervisor diagnostic II-XII nml as tested, no motor/sensory deficits, alert, normal mood/affect, oriented x 3, abnormal cerebellar tests Skin: normal color, warm/dry Lymphatic: no adenopathy Progress/Results/Core Measures Results/Orders Lab Results Laboratory Tests Test 01/05/18 14:29 Range/Units My Orders Orders - MARCUS ROBERTO MD Lorazepam Injection (Ativan Injection) (01/05/18 15:07) Cbc With Automated Diff (01/05/18 15:58) Comprehensive Metabolic Panel (01/05/18 15:58) Ua Culture If Indicated (01/05/18 15:58) Medications Given in ED Current Medications Medications Dose Ordered Sig/Susanne Route Start Time Stop Time Status Last Admin Dose Admin Lorazepam 2 mg STK-MED ONCE .ROUTE 01/05/18 15:07 01/05/18 15:12 DC 01/05/18 15:21 2 MG Departure Communication (Admissions) 1530 the patient exhibited another grand mal type seizure. I had hoped to send him home and have a University type seizure referral. This does not appear possible today. [address] Herrera, hospitalists at [facility]. He has been accepted in transfer. 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 Referrals: NO,LOCAL PHYSICIAN (PCP/Family) Primary Care Physician MARCUS ROBERTO MD Jan 05, 2018 15:42
[2018-01-05 16:04] LABS: BASOPHILS % (AUTO) 1 % (0-10); EOSINOPHILS # (AUTO) 0.2 10^3/uL (0.0-0.3); EOSINOPHILS % (AUTO) 3 % (0-10); HEMATOCRIT 40 % (40-54); HEMOGLOBIN 13.5 G/DL (13.3-17.7); LYMPHOCYTES % (AUTO) 28 % (12-44); MEAN CORPUSCULAR HGB CONC 34 G/DL (32-36); MEAN CORPUSCULAR VOLUME 96 FL (80-99); MEAN PLATELET VOLUME 10.5 FL (7.4-10.4); MONOCYTES # (AUTO) 0.6 X 10^3 (0.0-1.0); MONOCYTES % (AUTO) 8 % (0-12); NEUTROPHILS # (AUTO) 4.2 X 10^3 (1.8-7.8); NEUTROPHILS % (AUTO) 60 % (42-75); PLATELET COUNT 478 10^3/uL (130-400); RED BLOOD COUNT 4.16 10^6/uL (4.35-5.85); RED CELL DISTRIBUTION WIDTH 12.4 % (10.0-14.5); WHITE BLOOD COUNT 7.1 10^3/uL (4.3-11.0)
[2018-01-05 16:05] LABS: MEAN CORPUSCULAR HEMOGLOBIN 32 PG (25-34)
[2018-01-05 16:22] LABS: ALANINE AMINOTRANSFERASE 29 U/L (0-55); ALBUMIN 4.1 GM/DL (3.2-4.5); ALKALINE PHOSPHATASE 68 U/L (40-136); BILIRUBIN,TOTAL 0.3 MG/DL (0.1-1.0); BUN/CREATININE RATIO 16; CALCIUM 9.3 MG/DL (8.5-10.1); CARBON DIOXIDE 20 MMOL/L (21-32); CHLORIDE 105 MMOL/L (98-107); CREATININE SERUM 0.95 MG/DL (0.60-1.30); GFR ESTIMATED > 60; GLUCOSE 104 MG/DL (70-105); POTASSIUM 4.1 MMOL/L (3.6-5.0); SODIUM 141 MMOL/L (135-145); TOTAL PROTEIN 7.6 GM/DL (6.4-8.2)
== END 2018-01-05 19:25 | disposition short-term general hospital (02) ==
LOC: EDUNIT# 14:24 → ER 14:25
DX: G40.409 Other generalized epilepsy and epileptic syndromes, not intractable, without status epilepticus (principal); F41.9 Anxiety disorder, unspecified; F32.9 Major depressive disorder, single episode, unspecified; Z88.6 Allergy status to analgesic agent; Z87.891 Personal history of nicotine dependence
CPT/HCPCS: 36415; 80053; 85025

== ENCOUNTER 2018-05-16 22:45 | Emergency (ER) | payer BC ==
[~2018-05-16] VITALS: Ht 167.6 cm; Wt 81.6 kg
[2018-05-16] MEDS ORDERED: NS IV 1000 ML 1,000 ML IV ONE (22:54)
[2018-05-16 23:00] LABS: BASOPHILS % (AUTO) 0 % (0-10); EOSINOPHILS # (AUTO) 0.1 10^3/uL (0.0-0.3); EOSINOPHILS % (AUTO) 1 % (0-10); HEMATOCRIT 42 % (40-54); HEMOGLOBIN 14.5 G/DL (13.3-17.7); LYMPHOCYTES # (AUTO) 1.5 X 10^3 (1.0-4.0); LYMPHOCYTES % (AUTO) 17 % (12-44); MEAN CORPUSCULAR HEMOGLOBIN 34 PG (25-34); MEAN CORPUSCULAR HGB CONC 35 G/DL (32-36); MEAN CORPUSCULAR VOLUME 99 FL (80-99); MEAN PLATELET VOLUME 10.5 FL (7.4-10.4); MONOCYTES # (AUTO) 0.6 X 10^3 (0.0-1.0); MONOCYTES % (AUTO) 7 % (0-12); NEUTROPHILS # (AUTO) 6.9 X 10^3 (1.8-7.8); NEUTROPHILS % (AUTO) 76 % (42-75); PLATELET COUNT 401 10^3/uL (130-400); RED CELL DISTRIBUTION WIDTH 12.7 % (10.0-14.5); WHITE BLOOD COUNT 9.1 10^3/uL (4.3-11.0)
[2018-05-16] MEDS ORDERED: NS IV ONE (23:00)
[2018-05-16] MEDS ORDERED: LEVETIRACETAM IV ONE (23:00)
[2018-05-16] MEDS ORDERED: ONDANSETRON 4 MG/2 ML (SDV) Z0FRAN IVP ONE (23:00)
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
[2018-05-16 23:43] LABS: ALANINE AMINOTRANSFERASE 21 U/L (0-55); ALBUMIN 4.6 GM/DL (3.2-4.5); ALKALINE PHOSPHATASE 66 U/L (40-136); BILIRUBIN,TOTAL 0.4 MG/DL (0.1-1.0); BUN/CREATININE RATIO 19; CALCIUM 9.8 MG/DL (8.5-10.1); CARBON DIOXIDE 21 MMOL/L (21-32); CHLORIDE 104 MMOL/L (98-107); CREATINE KINASE 450 U/L (30-200); CREATININE SERUM 1.13 MG/DL (0.60-1.30); GFR ESTIMATED > 60; GLUCOSE 102 MG/DL (70-105); LIPASE 22 U/L (8-78); POTASSIUM 4.8 MMOL/L (3.6-5.0); SODIUM 143 MMOL/L (135-145); TOTAL PROTEIN 7.4 GM/DL (6.4-8.2)
[2018-05-16 23:47] LABS: PROTHROMBIN TIME PATIENT 13.5 SEC (12.2-14.7)
[2018-05-17 00:03] LABS: CREATINE KINASE MB 5.5 NG/ML (<6.6); MYOGLOBIN SERUM 137.3 NG/ML (10.0-92.0); TSH (THYROID ANALYZER) 0.83 UIU/ML (0.35-4.94)
[2018-05-17] MEDS ORDERED: LACTATED RINGERS 1,000 ML IV ONE ×2 (00:22→01:19)
[2018-05-17 01:03] LABS: BILIRUBIN,URINE NEGATIVE (NEGATIVE); CLARITY,URINE CLEAR; COLOR,URINE YELLOW; GLUCOSE, URINE (UA) 2+ (NEGATIVE); KETONES,URINE 2+ (NEGATIVE); LEUKOCYTE ESTERASE ,URINE NEGATIVE (NEGATIVE); NITRITE,URINE NEGATIVE (NEGATIVE); PH,URINE 6.5 (5-9); PROTEIN,URINE 2+ (NEGATIVE); UROBILINOGEN,URINE NORMAL (NORMAL)
[2018-05-17 01:15] LABS: AMPHETAMINE SCREEN, URINE NEGATIVE (NEGATIVE); BARBITURATE SCREEN URINE NEGATIVE (NEGATIVE); BENZODIAZEPINES SCREEN URINE NEGATIVE (NEGATIVE); CANNABINOID SCREEN, URINE POSITIVE (NEGATIVE); COCAINE SCREEN URINE NEGATIVE (NEGATIVE); METHADONE STAT NEGATIVE (NEGATIVE); METHAMPHETAMINE SCREEN URINE S NEGATIVE (NEGATIVE); OPIATE SCREEN URINE NEGATIVE (NEGATIVE); OXYCODONE STAT NEGATIVE (NEGATIVE); PROPOXYPHENE STAT NEGATIVE (NEGATIVE); TRICYCLIC ANTIDEPRESSANTS SCRE NEGATIVE (NEGATIVE)
[2018-05-17] MEDS ORDERED: NS IV 1000 ML 1,000 ML ONE (01:15)
[2018-05-17] MEDS ORDERED: NS IV 1000 ML 1,000 ML IV ONE (01:19)
[2018-05-17 01:35] LABS: BACTERIA,URINE NEGATIVE /HPF; SQUAMOUS EPITHELIAL CELL,UR RARE /HPF
[2018-05-17 02:51] VITALS: BP 106/66
--- NOTE | 2018-05-17 06:56 | Diagnostic Imaging Report ---
EXAM: CHEST 1 VIEW, AP/PA ONLY INDICATION: Seizure. COMPARISON: Chest radiograph 12/23/2017. FINDINGS: Normal heart size and pulmonary vascularity. No dense consolidation, pleural effusion or pneumothorax. No acute osseous findings. IMPRESSION: Negative chest. Dictated by: Dictated on workstation # [id number]
== END 2018-05-17 02:52 | disposition home or self-care (01) ==
LOC: EDUNIT# 22:45 → ER 22:46
DX: G40.909 Epilepsy, unspecified, not intractable, without status epilepticus (principal); F19.90 Other psychoactive substance use, unspecified, uncomplicated; F41.9 Anxiety disorder, unspecified; F32.9 Major depressive disorder, single episode, unspecified; F17.210 Nicotine dependence, cigarettes, uncomplicated; Z88.6 Allergy status to analgesic agent; Z91.14 Patient's other noncompliance with medication regimen; Z86.59 Personal history of other mental and behavioral disorders
CPT/HCPCS: 36415; 71045; 80053; 80306; 80320; 81000; 82550; 82553; 82962; 83690; 83735; 83874; 84443; 84484; 85025; 85610; 85730; 87804; 93005; 93041

== ENCOUNTER 2020-02-11 06:35 | Emergency (ER) | payer SELFPAY ==
[~2020-02-11] VITALS: Ht 175.2 cm; Wt 81.6 kg
[~2020-02-11 06:35] MED LIST changes: -TRAZ-190 PO; +TRAZ-227 PO
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
[2020-02-11 07:01] LABS: BASOPHILS # (AUTO) 0.1 10^3/uL (0.0-0.1); BASOPHILS % (AUTO) 1 % (0-10); EOSINOPHILS # (AUTO) 0.3 10^3/uL (0.0-0.3); EOSINOPHILS % (AUTO) 4 % (0-10); HEMATOCRIT 45 % (40-54); HEMOGLOBIN 14.6 g/dL (13.3-17.7); LYMPHOCYTES # (AUTO) 2.4 10^3/uL (1.0-4.0); LYMPHOCYTES % (AUTO) 30 % (12-44); MEAN CORPUSCULAR HEMOGLOBIN 33 pg (25-34); MEAN CORPUSCULAR HGB CONC 33 g/dL (32-36); MEAN CORPUSCULAR VOLUME 100 fL (80-99); MEAN PLATELET VOLUME 10.4 fL (9.0-12.2); MONOCYTES # (AUTO) 0.7 10^3/uL (0.0-1.0); MONOCYTES % (AUTO) 9 % (0-12); NEUTROPHILS # (AUTO) 4.4 10^3/uL (1.8-7.8); NEUTROPHILS % (AUTO) 56 % (42-75); PLATELET COUNT 286 10^3/uL (130-400)
--- NOTE | 2020-02-11 07:17 | NUR ---
RETURN FROM CT.
[2020-02-11 07:23] LABS: ALBUMIN 4.3 GM/DL (3.2-4.5); CHLORIDE 108 MMOL/L (98-107); POTASSIUM 4.5 MMOL/L (3.6-5.0); SODIUM 143 MMOL/L (135-145)
[2020-02-11 07:24] LABS: CALCIUM 8.7 MG/DL (8.5-10.1)
[2020-02-11 07:26] LABS: GLUCOSE 89 MG/DL (70-105); TOTAL PROTEIN 7.4 GM/DL (6.4-8.2)
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
[2020-02-11 07:27] LABS: BILIRUBIN,TOTAL 0.2 MG/DL (0.1-1.0); CARBON DIOXIDE 20 MMOL/L (21-32)
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
[2020-02-11 07:29] LABS: ALKALINE PHOSPHATASE 63 U/L (40-136); CREATININE SERUM 1.25 MG/DL (0.60-1.30); GFR ESTIMATED > 60
[2020-02-11 07:30] LABS: BUN/CREATININE RATIO 22
[2020-02-11 07:32] LABS: ALANINE AMINOTRANSFERASE 15 U/L (0-55)
[2020-02-11 07:36] LABS: BILIRUBIN,URINE NEGATIVE (NEGATIVE); CLARITY,URINE SL CLOUDY; COLOR,URINE YELLOW; GLUCOSE, URINE (UA) NEGATIVE (NEGATIVE); KETONES,URINE NEGATIVE (NEGATIVE); LEUKOCYTE ESTERASE ,URINE NEGATIVE (NEGATIVE); NITRITE,URINE NEGATIVE (NEGATIVE); PROTEIN,URINE NEGATIVE (NEGATIVE)
[2020-02-11 07:44] LABS: BACTERIA,URINE NEGATIVE /HPF; SQUAMOUS EPITHELIAL CELL,UR RARE /HPF
[2020-02-11 07:50] LABS: AMPHETAMINE SCREEN, URINE NEGATIVE (NEGATIVE); BARBITURATE SCREEN URINE NEGATIVE (NEGATIVE); BENZODIAZEPINES SCREEN URINE NEGATIVE (NEGATIVE); CANNABINOID SCREEN, URINE POSITIVE (NEGATIVE); COCAINE SCREEN URINE NEGATIVE (NEGATIVE); METHADONE STAT NEGATIVE (NEGATIVE); METHAMPHETAMINE SCREEN URINE S NEGATIVE (NEGATIVE); OPIATE SCREEN URINE NEGATIVE (NEGATIVE); OXYCODONE STAT NEGATIVE (NEGATIVE); PROPOXYPHENE STAT NEGATIVE (NEGATIVE); TRICYCLIC ANTIDEPRESSANTS SCRE NEGATIVE (NEGATIVE)
[2020-02-11 08:02] VITALS: BP 144/73
--- NOTE | 2020-02-11 08:02 | NUR ---
VOICED UNDERSTANDING NOT TO DRIVE FOR 6 MONTHS TILL SEEN BY NEUROLIGIST.
== END 2020-02-11 08:08 | disposition home or self-care (01) ==
LOC: EDUNIT# 06:35 → ER 06:36
DX: G40.909 Epilepsy, unspecified, not intractable, without status epilepticus (principal); F32.9 Major depressive disorder, single episode, unspecified; Z82.49 Family history of ischemic heart disease and other diseases of the circulatory system; Z87.891 Personal history of nicotine dependence; Z88.8 Allergy status to other drugs, medicaments and biological substances
CPT/HCPCS: 70450; 71045; 72125; 80053; 80306; 81000; 82962; 84484; 85025; 86141; 99284; G0480; 36415; 80320

== ENCOUNTER 2020-11-11 16:41 | Emergency (ER) | payer SELFPAY ==
[~2020-11-11] VITALS: Ht 175 cm; Wt 86.0 kg
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
[2020-11-11] MEDS ORDERED: fentaNYL INJ 100 MCG/2 ML AMP IVP ONE (17:00)
--- NOTE | 2020-11-11 17:17 | Diagnostic Imaging Report ---
EXAMINATION: Right tibia and fibula at 05:09 p.m. INDICATION: Leg pain. TECHNIQUE: AP and lateral views were obtained. COMPARISON: There are no prior studies available for comparison. FINDINGS: There is no fracture, dislocation, or acute bony abnormality evident. There is moderate degenerative disease involving the lateral compartment of the knee joint. The knee joint is otherwise well maintained. The ankle joint also seems stable. The ankle mortise is not widened and the talar dome is smooth. The soft tissues are unremarkable. IMPRESSION: There is no evidence for an acute bony abnormality. Dictated by: Dictated on workstation # [id number]
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
[2020-11-11 18:10] VITALS: BP 124/79
[2020-11-11] MEDS ORDERED: NS 100 ML (IVPB) BAG IV ONE (18:15)
[2020-11-11] MEDS ORDERED: CATHETER FLUSH 10 ML SYR IV PRN (18:15)
[2020-11-11] MEDS ORDERED: HOLD METFORMIN - RECEIVED CONTRAST 20 ML VIAL IV SCH (18:15)
[2020-11-11] MEDS ORDERED: IOHEXOL 350 MG/ML 100 ML (OMNIPAQUE 350) VIAL IV ONE (18:15)
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
[2020-11-11 18:34] LABS: HEMATOCRIT 43 % (40-54); HEMOGLOBIN 14.5 g/dL (13.3-17.7); MEAN CORPUSCULAR HEMOGLOBIN 33 pg (25-34); MEAN CORPUSCULAR HGB CONC 34 g/dL (32-36); MEAN CORPUSCULAR VOLUME 98 fL (80-99); MEAN PLATELET VOLUME 10.2 fL (9.0-12.2); PLATELET COUNT 300 10^3/uL (130-400); WHITE BLOOD COUNT 11.2 10^3/uL (4.3-11.0)
[2020-11-11] MEDS ORDERED: METH-732 PO (18:34)
[2020-11-11] MEDS ORDERED: NAPR-1070 PO (18:34)
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
[2020-11-11 18:58] LABS: ALANINE AMINOTRANSFERASE 18 U/L (0-55); ALBUMIN 4.1 GM/DL (3.2-4.5); ALKALINE PHOSPHATASE 44 U/L (40-136); BILIRUBIN,DIRECT 0.3 MG/DL (0.0-0.3); BILIRUBIN,INDIRECT 0.3 MG/DL; BILIRUBIN,TOTAL 0.6 MG/DL (0.1-1.0); BUN/CREATININE RATIO 20; CALCIUM 9.1 MG/DL (8.5-10.1); CARBON DIOXIDE 21 MMOL/L (21-32); CHLORIDE 110 MMOL/L (98-107); CREATININE SERUM 1.04 MG/DL (0.60-1.30); GFR ESTIMATED 78; GLUCOSE 83 MG/DL (70-105); POTASSIUM 3.9 MMOL/L (3.6-5.0); SODIUM 139 MMOL/L (135-145); TOTAL PROTEIN 6.7 GM/DL (6.4-8.2)
== END 2020-11-11 18:01 | disposition home or self-care (01) ==
LOC: EDUNIT# 16:41 → ER 16:44
DX: R91.1 Solitary pulmonary nodule (principal); G40.909 Epilepsy, unspecified, not intractable, without status epilepticus; F41.9 Anxiety disorder, unspecified; F32.9 Major depressive disorder, single episode, unspecified; Z79.899 Other long term (current) drug therapy
CPT/HCPCS: 70450; 71045; 71260; 72125; 73590; 74177; 80048; 80076; 85027; 93005; 93041; 99284; G0480; 36415; 80320

== ENCOUNTER 2023-01-10 13:48 | Emergency (ER) | payer SELFPAY ==
[~2023-01-10] VITALS: Ht 172.7 cm; Wt 90.7 kg
[~2023-01-10 13:48] MED LIST changes: +METH-732 PO; +NAPR-1070 PO
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
[2023-01-10 15:00] VITALS: BP 117/71
== END 2023-01-10 15:00 | disposition home or self-care (01) ==
LOC: EDUNIT# 13:48 → ER 13:49
DX: G40.909 Epilepsy, unspecified, not intractable, without status epilepticus (principal); Z79.899 Other long term (current) drug therapy
CPT/HCPCS: 36415; 80164; 82947